=== PATIENT | male | born 1970 | race Caucasian/White ===

== ENCOUNTER 2020-03-07 09:31 | Inpatient (IN) | payer SELFPAY ==
[2020-03-07] VITALS (14 sets, daily range): BP systolic 123–170; BP diastolic 61–95; PULSE 53–89; RESP 16–19; TEMP 35.9–36.8; O2SAT 94–99; BMI 32.5
--- NOTE | 2020-03-07 09:56 | ECG_ITS ---
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 Measurements Intervals [place] Rate: 68 P: 63 [place]: 136 QRS: 89 QRSD: 95 T: 72 QT: 373 QTc: 399 Interpretive Statements SINUS RHYTHM WITH SINUS ARRHYTHMIA NONSPECIFIC ST & T-WAVE ABNORMALITY No previous ECG available for comparison Electronically Signed On 03-07-2020 18:22:21 MEDICAL RECEPTION SPECIALIST by Samina Mercado M.D. [id number] f
--- NOTE | 2020-03-07 09:56 | XR_ITS ---
WS: [id number] Portable AP upright chest, 03/07/2020 Clinical Data: cp Comparison: Portable chest, 04/23/2018. Findings: No nodules, masses or effusions are seen. The heart is normal. The pulmonary vascularity is not increased. No pneumonia or pneumothorax is seen. There is a slight dextroscoliosis of the thorac ic spine. Monitor leads on the chest wall XR/XR chest 1V portable [id number] Impression: Negative chest.
--- NOTE | 2020-03-07 10:01 | ED_ITS ---
HPI - Chest Pain General: Chief Complaint: Chest Pain Stated Complaint: cp/diff breathing Time Seen by Provider: 03/07/20 09:34 Source: patient Mode of arrival: ambulatory Limitations: no limitations History of Present Illness: HPI narrative: 49-year-old male states he has a history of COPD and is a longtime smoker. States he supposed to use nebulizers but he has not been. States he has had some dyspnea and wheezing over last 2 to 3 days with a cough. He states he has had sharp chest pains that started this morning at 7 AM. States pain seems worse with his cough. He denies any fevers. Denies any vomiting or diarrhea. Associated symptoms: Reports dyspnea; Deny abdominal pain, fever(s), nausea or vomiting Review of Systems Const: Denies: fever(s), chills, body aches or change in appetite Eyes: Denies: blurry vision or eye discomfort ENMT: Denies: throat pain or dental pain Card: Reports: chest pain Resp: Reports: dyspnea GI: Denies: abdominal pain, nausea, vomiting or diarrhea : Denies: dysuria Musc: Denies: neck pain or back pain Skin/Breast: Denies: rash Neuro: Denies: headache(s) Psych: Denies: depression [place]/Lymph: Denies: easy bruising All/Imm: Denies: urticaria Physical Exam Const: COMMON NORMALS: no acute distress, patient oriented x3 and healthy appearing HENMT: COMMON NORMALS: normocephalic and atraumatic HEAD & SCALP: normocephalic and atraumatic Eye: COMMON NORMALS: Equal, round and reactive pupils present and EOMs intact bilaterally PUPIL: Yes Equal, round and reactive pupils present Neck/C-Spine: COMMON NORMALS: full ROM and supple Chest: COMMONS NORMALS: normal inspection of the chest and normal palpation of entire chest wall Resp: COMMON NORMALS: normal respiratory effort, No retractions and No use of accessory muscles AUSCULTATION: wheezes Cardio: COMMON NORMALS: regular rate, regular rhythm and No murmurs present (Cardio) RATE: regular rate RHYTHM: regular rhythm GI: COMMON NORMALS: Normal to inspection, nondistended, normoactive bowel sounds present, Soft to palpation, non-tender and no masses PALPATION: Yes Soft to palpation Extremity: COMMON NORMALS: normal to inspection and full ROM Neuro: COMMON NORMALS: patient oriented x3, moves all extremities and no focal motor deficits Psych: COMMON NORMALS: mental status grossly normal, Normal thought process present and cooperative THOUGHT PROCESS: Normal thought process present Skin: COMMON NORMALS: no rashes or lesions noted and no wounds GENERAL SKIN EXAM: no rashes or lesions noted Course Vital Signs: Vital signs: Vital Signs Temperature 97.7 F 03/07/20 09:47 Pulse Rate 68 03/07/20 09:55 Respiratory Rate 16 03/07/20 09:55 Blood Pressure 160/92 03/07/20 09:55 Pulse Oximetry 99 03/07/20 09:55 MDM - Chest Pain MDM Narrative: Medical decision making narrative: Doing presents with chest pain with a possible NSTEMI. Patient's troponin had a delta of 19. He is chest pain-free here and EKGs are normal. We will start him on Lovenox. I spoke to the hospitalist and will admit to the cardiac stepdown. Lab Data: Labs: Lab Results 03/07/20 03/07/20 03/07/20 Range/Units 09:57 09:57 09:57 WBC 8.0 (4.0-10.0) 10^3/ uL RBC 4.98 (4.1-5.3) 10^6/u L Hgb 16.0 (11.7-16.6) g/dL Hct 47.1 (42.0-52.0) % MCV 94.6 H (80-94) fL MCH 32.1 (28.0-34.0) pg MCHC 34.0 (30.0-36.0) g/dL RDW 12.6 (12.1-15.1) % Plt Count 245 (130-400) 10^3/c mm MPV 11.1 H (7.4-10.4) fL Neut % (Auto) 56.9 % Lymph % (Auto) 28.6 % [place] % (Auto) 10.1 % Eos % (Auto) 2.4 % Baso % (Auto) 1.6 % Neut # (Auto) 4.53 (1.8-7.7) 10^3/u L Lymph # (Auto) 2.3 (0.8-4.8) 10^3/u L [place] # (Auto) 0.8 (0.2-0.9) 10^3/u L Eos # (Auto) 0.2 (0.0-0.8) 10^3/u L Baso # (Auto) 0.1 (0.0-0.1) 10^3/u L Nucleated RBC % (a uto) 0 % Nucleated RBCs # 0.0 /100WBC Sodium 142 (136-145) mmol/L Potassium 4.3 (3.5-5.1) mmol/L Chloride 104 (98-107) mmol/L Carbon Dioxide 27 (22-29) mmol/L Anion Gap 15.3 (5-19) BUN 13 (6-20) mg/dL Creatinine 1.1 (0.7-1.2) mg/dL GFR Calculation 70.9 L (90-130) mL/min Glucose 99 (65-115) mg/dL Calculated Osmolal ity 294 (285-295) mOsm/k g Calcium 9.7 (8.5-10.5) mg/dL Total Bilirubin 0.3 (0.15-1.2) mg/dL AST 17 (0-40) U/L ALT 29 (0-41) U/L Alkaline Phosphata se 95 (40-130) IU/L Troponin T Baselin e 18 H (0-15) ng/L Troponin T 120 Min [place] (0-15) ng/L Delta Troponin T (0-10) ABS# NT-Pro-B Natriuret Pep 47 (0-125) pg/mL Total Protein 6.9 (6.6-8.7) g/dL Albumin 4.7 (3.5-5.2) g/dL Globulin 2.2 (1.3-4.6) g/dL 03/07/20 Range/Units 12:08 WBC (4.0-10.0) 10^3/ uL RBC (4.1-5.3) 10^6/u L Hgb (11.7-16.6) g/dL Hct (42.0-52.0) % MCV (80-94) fL MCH (28.0-34.0) pg MCHC (30.0-36.0) g/dL RDW (12.1-15.1) % Plt Count (130-400) 10^3/c mm MPV (7.4-10.4) fL Neut % (Auto) % Lymph % (Auto) % [place] % (Auto) % Eos % (Auto) % Baso % (Auto) % Neut # (Auto) (1.8-7.7) 10^3/u L Lymph # (Auto) (0.8-4.8) 10^3/u L [place] # (Auto) (0.2-0.9) 10^3/u L Eos # (Auto) (0.0-0.8) 10^3/u L Baso # (Auto) (0.0-0.1) 10^3/u L Nucleated RBC % (a uto) % Nucleated RBCs # /100WBC Sodium (136-145) mmol/L Potassium (3.5-5.1) mmol/L Chloride (98-107) mmol/L Carbon Dioxide (22-29) mmol/L Anion Gap (5-19) BUN (6-20) mg/dL Creatinine (0.7-1.2) mg/dL GFR Calculation (90-130) mL/min Glucose (65-115) mg/dL Calculated Osmolal ity (285-295) mOsm/k g Calcium (8.5-10.5) mg/dL Total Bilirubin (0.15-1.2) mg/dL AST (0-40) U/L ALT (0-41) U/L Alkaline Phosphata se (40-130) IU/L Troponin T Baselin e (0-15) ng/L Troponin T 120 Min [place] 37.93 H (0-15) ng/L Delta Troponin T 19.93 H* (0-10) ABS# NT-Pro-B Natriuret Pep (0-125) pg/mL Total Protein (6.6-8.7) g/dL Albumin (3.5-5.2) g/dL Globulin (1.3-4.6) g/dL Imaging Data^: CXR: Radiologist's impression: [address] [address] XRay Report Signed Patient: Twin To Unit #: [id number] : 1970 Age/Sex: 49 / M ADM Date: 03/07/20 Loc: ER Room/Bed: Attending Dr: Ordering Provider/Ordering MD: Marianela Taylor MD Date of Service: 03/07/20 Procedure(s): XR chest 1V portable [id number] Accession Number(s): [id number] Report Number: [id number] WS: [id number] Portable AP upright chest, 03/07/2020 Clinical Data: cp Comparison: Portable chest, 04/23/2018. Findings: No nodules, masses or effusions are seen. The heart is normal. The pulmonary vascularity is not increased. No pneumonia or pneumothorax is seen. There is a slight dextroscoliosis of the thoracic spine. Monitor leads on the chest wall XR/XR chest 1V portable [id number] Impression: Negative chest. EKG Data^: EKG 1: Attestation: I personally reviewed and interpreted this EKG as follows: EKG interpretation date: 03/07/20 EKG interpretation time: 09:51 Interpretation: nsr hr [address] or t wave abnormalities qrs 95 qtc 391 EKG 2: Attestation: I personally reviewed and interpreted this EKG as follows: EKG interpretation date: 03/07/20 EKG interpretation time: 12:18 Interpretation: sinus donny hr [address] or t wave abnormalities qrs 95 qtc 415 Discharge Plan Discharge Patient Disposition: Admitted As Inpatient Clinical Impression: Non-ST elevation VT (NSTEMI) Condition: Stable Coding Level of Care Code ED Underlay Stitcher for Chg Fwd Exam Comprehensive
[2020-03-07] MEDS: aspirin 81 mg Chew Tablet 324 MG PO (10:07)
[2020-03-07 10:26] LABS: Basophils # 0.1 10^3/uL (0.0-0.1); Basophils % 1.6 %; Eosinophils # 0.2 10^3/uL (0.0-0.8); Eosinophils % 2.4 %; Hematocrit 47.1 % (42.0-52.0); Lymphocytes # 2.3 10^3/uL (0.8-4.8); Lymphocytes % 28.6 %; Mean Corpuscular Hemoglobin 32.1 pg (28.0-34.0); Mean Corpuscular Volume 94.6 fL (80-94); Mean Platelet Volume 11.1 fL (7.4-10.4); Monocytes # 0.8 10^3/uL (0.2-0.9); Monocytes % 10.1 %; Neutrophils # 4.53 10^3/uL (1.8-7.7); Neutrophils % 56.9 %; Nucleated Red Blood Cells % 0 %; Platelet Count 245 10^3/cmm (130-400); Red Blood Count 4.98 10^6/uL (4.1-5.3); Red Cell Distribution Width 12.6 % (12.1-15.1)
[2020-03-07 10:41] LABS: Troponin(5th) Baseline 18 ng/L (0-15)
[2020-03-07 10:50] LABS: Alanine Aminotransferase 29 U/L (0-41); Albumin Level 4.7 g/dL (3.5-5.2); Alkaline Phosphatase 95 IU/L (40-130); Anion Gap 15.3 (5-19); Aspartate Amino Transferase 17 U/L (0-40); Blood Urea Nitrogen 13 mg/dL (6-20); Calcium 9.7 mg/dL (8.5-10.5); Carbon Dioxide 27 mmol/L (22-29); Chloride 104 mmol/L (98-107); Globulin 2.2 g/dL (1.3-4.6); Glomerular Filtration Rate 70.9 mL/min (90-130); Glucose 99 mg/dL (65-115); NT Pro B Type Natriuretic Pept 47 pg/mL (0-125); Osmolality Calculated 294 mOsm/kg (285-295); Potassium 4.3 mmol/L (3.5-5.1); Sodium 142 mmol/L (136-145); Total Bilirubin 0.3 mg/dL (0.15-1.2); Total Protein 6.9 g/dL (6.6-8.7)
--- NOTE | 2020-03-07 11:56 | ECG_ITS ---
[facility] Test Date: 2020-03-07 Pat Name: Twin To Department: Room: 104 Gender: Male Principal Systems Architect: : 1970 Requested By: Marianela Taylor Order Number: [id number] Reshma MD: Samina Mercado M.D. Measurements Intervals [place] Rate: 51 P: 56 [place]: 144 QRS: 83 QRSD: 95 T: 69 QT: 437 QTc: 406 Interpretive Statements SINUS BRADYCARDIA Compared to ECG 03/07/2020 09:51:11 Sinus rhythm no longer present Sinus arrhythmia no longer present T-wave abnormality no longer present Electronically Signed On 03-07-2020 18:39:46 INTERIOR SPECIALIST by Samina Mercado M.D. [id number] f
[2020-03-07 12:32] LABS: Troponin 5 2HR 37.93 ng/L (0-15)
[2020-03-07 12:44] LABS: Troponin 5 2HR Delta 19.93 ABS# (0-10)
[2020-03-07] MEDS: enoxaparin 100 mg/mL Syringe SUBCUT (13:00)
--- NOTE | 2020-03-07 13:27 | PC.RESP ---
Dr. Taylor stated that he did not want treatment given.
--- NOTE | 2020-03-07 13:41 | CT_ITS ---
WS: [id number] CTA OF THE CHEST WITH PULMONARY EMBOLISM PROTOCOL TECHNIQUE: High-resolution contrast enhanced CTA of the chest with coronal and sagittal reformatted i mages with pulmonary embolism protocol. MIP images are also reviewed. CLINICAL INFORMATION: chest pain, dyspnea COMPARISON: None. DLP: 642.[address] scans at [facility] use at least one of these dose optimization techniques: automat ed exposure control; mA and/or kV adjustment per patient size (includes targeted exams where dose is matched to clinical indication); or iterative reconstruction. FINDINGS: Proximal main pulmonary arteries are normal. Segmental and subsegmental pulmonary arteries are normal . No evidence of pulmonary embolus. Normal caliber thoracic aorta. Lungs are well aerated. No acute pulmonary infiltrates. No focal pneumonia or pleural fluid. No mediastinal or hilar lymphadenopathy. No axillary lymphadenopathy. Left adrenal nodule likely adenoma measuring 2.[address]/CT angio chest PE protcl [id number] IMPRESSION: 1. No evidence of pulmonary embolus. 2. No acute pulmonary infiltrates. No focal pneumonia or pleural fluid. 3. No mediastinal or hilar lymphadenopathy.
--- NOTE | 2020-03-07 13:41 | PC.NURSE ---
called report to alexsandra castellanos
--- NOTE | 2020-03-07 13:57 | P.HP_ITS ---
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 He reports that he has had some on and off chest pain episodes, sometimes after profound bouts of cough due to his COPD, but other times episodes may be related to getting out from his truck and walking. He reports that he has somewhat chronic cough, recently may have been coughing a bit more, but denies producing more sputum, or any discoloration to sputum. Denies any fever chills, sore throat runny nose, sneezing, headache or muscle aches. He does feel that sometimes the pain may be worsened by movement, lifting his arms, and cough. This is not consistent, however. He denies any history of prior SC, however, says that he may have had a mini stroke several years ago. 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 He denies any hemoptysis. He does state that occasionally he will wake up at night short of breath, says that sometimes he can catch a deep breath, but has difficulty exhaling. He also states his noticed that he sometimes will stop breathing while sleeping for short time. He reports that his also noticed that his right leg was slightly more swollen recently. In ER he is noted to have intermittently elevated blood pressures, as high as 170 systolic, although does not have formal history of hypertension. He states that his blood pressure while in ER has been variable between normal and elevated. He is currently feeling somewhat better, denies pain at the moment, does have some tightness with deep inspiration. In ER he is noted to have for troponin minimally elevated at 18, with positive delta troponin elevation up to 37.9 with delta of 19.9. EKG shows nonspecific ST and T wave abnormality. In ER he received 325 mg of aspirin, as well as a dose of Lovenox in addition to albuterol inhaler. Review of Systems Const: Denies: fever(s), chills, body aches or malaise Eyes: Denies: change in vision or eye redness ENMT: Denies: throat pain, oral sores or ear or mastoid pain Card: Denies: chest pain, edema, pre-syncope or dyspnea on exertion Resp: Denies: dyspnea, productive cough, change in phlegm color or hemoptysis GI: Denies: abdominal pain, nausea, vomiting, diarrhea, constipation, hematochezia or melena : Denies: flank pain, difficulty urinating, urinary frequency or hematuria Musc: Denies: back pain, joint swelling or joint redness Skin/Breast: Denies: rash, sores or new lesions Neuro: Denies: headache(s), numbness in extremities, weakness in extremities, dizziness, confusion or seizure-like activity Endo: Denies: polyuria or polydipsia [place]/Lymph: Denies: easy bleeding or purpura All/Imm: Denies: urticaria, throat swelling or tongue swelling Medications/Allergies Home Medications Medication Instructions Recorded Confirmed Last Taken Type xexeqpy-zftjeapkmumkg-fjwmvgru 2 tab PO PRN 03/07/20 03/07/20 03/05/20 History [Excedrin Migraine] Allergies Allergy/AdvReac Type Severity Reaction Status Date / Time meperidine [From Demerol] Allergy ALGY-Rash Verified 03/07/20 10:21 PFSH Acute PFSH: Medical History COPD (chronic obstructive pulmonary disease) Current smoker Surgical History (Updated 03/07/20 @ 14:05 by Titus Flores MD) Amputation finger traumatic, with surgical reattachment of both index fingers History of ankle surgery Previous back surgery Coccyx Family History Father CAD (coronary artery disease) of massive SC in his 40s Mother Cancer Lung cancer Social History Smoking and tobacco status: heavy tobacco smoker cigarettes Packs smoked per day: 1 [ Other cigarette details: Previously up to 4ppd, then 2, now down to 1 ] Alcohol intake: never Substance/Drug Use: never Lives independently: Yes Household members: spouse Marital status: Current occupational status: employed Vitals/I&O/Wt Last Vital Signs Temp 97.7 F 03/07/20 09:47 Pulse 58 L 03/07/20 13:35 Resp 18 03/07/20 13:35 BP 170/89 03/07/20 13:35 Pulse Ox 99 03/07/20 13:35 Weight last 48 hrs Weight 108.862 kg Physical Exam Const: COMMON NORMALS: no acute distress, patient oriented x3 and alert GENERAL APPEARANCE: cooperative and disheveled NUTRITIONAL APPEARANCE: overweight ORIENTATION/CONSCIOUSNESS: Yes awake HENMT: COMMON NORMALS: oropharynx normal Neck/C-Spine: COMMON NORMALS: no JVD Resp: COMMON NORMALS: normal respiratory effort AUSCULTATION: diminished lung sounds OTHER: intermittent cough Cardio: COMMON NORMALS: no JVD, regular rhythm, S1 normal heart sound present, S2 normal heart sound present and No murmurs present (Cardio) RHYTHM: regular rhythm HEART SOUNDS: S1 normal heart sound present and S2 normal heart sound present GI: COMMON NORMALS: Normal to inspection, nondistended, normoactive bowel sounds present, Soft to palpation and non-tender PALPATION: Yes Soft to palpation Extremity: COMMON NORMALS: no pedal edema OTHER: Minimal edema R ankle Neuro: COMMON NORMALS: patient oriented x3 and moves all extremities Skin: COMMON NORMALS: no rashes or lesions noted GENERAL SKIN EXAM: no rashes or lesions noted Data : 03/07/20 09:57 03/07/20 09:57 A&P Assessment and plan (1) Non-ST elevation SC (NSTEMI): Chest pain episode today, previously intermittent/recurrent chest pain episodes. Positive troponin delta. Pending 6-hour value. With risk factors, positive troponin, nonspecific EKG, symptoms, he has possible non-STEMI. Received aspirin, Lovenox. Hold beta-jacqueline due to bradycardia. Start statin. Follow-up complete troponin EKG series. Assess TTE. With intermittent chest pain, dyspnea, cough, mild but asymmetrical lower extremity swelling, risk factors, will assess with CTA chest for possible PE. Status: Acute (2) COPD (chronic obstructive pulmonary disease): Minimal if any exacerbation. He does have cough, perhaps slightly more than usual, but this is nonproductive, and if producing phlegm it is not discolored. For now we will treat with nebulizer. Respiratory to assess. He is not hypoxic at this time. States at home has a nebulizer. Says that he has tried some inhalers in the past which did not work for him. I am not sure that he actually uses his nebulizer with any regularity. If you be willing discussed with him we could try starting inhaler regimen, with consideration of referral to pulmonology in case he still gets no relief. Smoking cessation is of utmost importance as discussed with him. Status: Acute (3) Current smoker: Discussed smoking cessation for 5 minutes, he has known COPD, recently with worsening respiratory symptoms. He understands that he needs to quit, and says has been cutting down from as much as 4 packs/day, down to 2, and currently down to about 1 pack. Encouraged him to quit entirely due to other risks inclu ding cardiovascular disease, various cancers, etc. We will provide nicotine replacement as needed. Status: Acute (4) Sleep apnea: Reports intermittent symptoms of sleep apnea. Would benefit from sleep study. Status: Acute (5) Right leg swelling: Minimal right leg swelling. 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 Assess CTA for possible PE with symptoms of chest pain, dyspnea. Status: Acute (6) HTN (hypertension): Somewhat variable blood pressure, elevated as high as 170 systolic. He is not aware of history of hypertension in the past. For now start on HCTZ. Monitor blood pressures. Cardiac diet. Status: Acute Attestations Medical Necessity Statement*: Admission of over 2 midnights is contaminated versus management of non-STEMI. Coding Level of Care Code Acute Architecture Consultant for [facility] Fwd Exam Comprehensive Diagnoses Non-ST elevation SC (NSTEMI) I21.4 COPD (chronic obstructive pulmonary disease) J44.9 Current smoker F17.200 Sleep apnea G47.30 Right leg swelling M79.89 HTN (hypertension) I10
--- NOTE | 2020-03-07 13:57 | USCV_ITS ---
ZuleikaLuisTwin Age: 49 Gender: M : 1970 Exam Date: 03/07/2020 14:23 Ordering Phys: Titus Flores MD Technologist: Sahara Lobo Exam Location: [facility] [place] Indication: NSTEMI BP: 170 / 95 HR: 53 Rhythm: Sinus Technical Quality: Adequate MEASUREMENTS (Male / Female) Normal Values 2D ECHO LV Diastolic Diameter PLAX 4.2 cm 4.2 - 5.9 / 3.9 - 5.3 cm LV Systolic Diameter PLAX 2.5 cm LV Chamber Size 3.7 cm IVS Diastolic Thickness 1.2 cm 0.6 - 1.0 / 0.6 - 0.9 cm IVS Systolic Thickness 1.6 cm LVPW Diastolic Thickness 2.0 cm 0.6 - 1.0 / 0.6 - 0.9 cm LVPW Systolic Thickness 2.7 cm RV Chamber Size 3.2 cm LVOT Diameter 2.0 cm LV Ejection Fraction 2D Teich 72.4 % LV Ejection Fraction MOD 2C 50.3 % LV Ejection Fraction 2C AL 54.9 % LA Diameter 3.8 cm LA Width 2.7 cm LA Height 4.1 cm RA Width 3.1 cm RA Height 3.9 cm Aorta at Sinotubular Diameter 2.1 cm M-MODE LV Diastolic Diameter MM 6.4 cm 4.2 - 5.9 / 3.9 - 5.3 cm LV Systolic Diameter MM 4.2 cm LV Ejection Fraction MM Teich 61.8 % IVS Diastolic Thickness MM 1.2 cm 0.6 - 1.0 / 0.6 - 0.9 cm IVS Systolic Thickness MM 1.3 cm LVPW Diastolic Thickness MM 1.0 cm 0.6 - 1.0 / 0.6 - 0.9 cm LVPW Systolic Thickness MM 2.0 cm Aortic Annulus Diameter 3.3 cm LA Ao Ratio MM 1.4 MV E Point Septal Separation 1.3 cm DOPPLER AV Peak Velocity 177.0 cm/s LVOT Peak Velocity 108.0 cm/s AV Area Cont Eq vti 1.9 cm squared AV Area Cont Eq pk 2.0 cm squared MV Area PHT 3.4 cm squared Mitral E to A Ratio 1.8 MV E' Velocity 52.5 cm/s Mitral E to MV E' Ratio 6.8 Mitral E to LV E' Lateral Ratio 6.4 Mitral E to LV E' Septal Ratio 7.5 TR Peak Velocity 146.5 cm/s TR Peak Gradient 8.6 mmHg TV Peak E Velocity 69.0 cm/s Right Atrial Pressure 3.0 mmHg Pulmonary Artery Systolic Pressu 11.6 mmHg PV Peak Velocity 84.0 cm/s RV Acceleration Time 0.2 s RV Ejection Time 0.4 s RV AcT/ET 0.6 FINDINGS Left Ventricle Normal left ventricular size and systolic function, with no regional wall motion abnormalities. LVEF is 50 to 55%. Normal diastolic function is noted. Right Ventricle The right ventricle is normal in size and function. Right Atrium The right atrium is normal in size. Left Atrium The left atrium is normal in size. Mitral Valve Structurally normal mitral valve without significant stenosis or prolapse. There is no mitral regurgitation. Aortic Valve Structurally normal aortic valve without significant sclerosis or stenosis. There is no aortic regurgitation. Tricuspid Valve Structurally normal tricuspid valve without significant stenosis or regurgitation. Insufficient TR jet to calculate RVSP. Pulmonic Valve Structurally normal pulmonic valve without significant stenosis. There is no pulmonic regurgitation. Pericardium Normal pericardium without effusion. Aorta Normal ascending aorta dimension. CONCLUSIONS LV systolic function is normal with EF of 50 to 55%. No regional wall motion abnormalities are noted. Normal diastolic function. No significant valvular heart disease is present. No comparison studies are available. Mayur Martin MD (Electronically Signed) Final Date: 07 March 2020 19:10 S
--- NOTE | 2020-03-07 13:57 | USCV_ITS ---
Zuleika Twin Age: 49 Gender: M : 1970 Exam Date: 03/07/2020 14:35 Ordering Phys: Titus Flores MD Technologist: Sahara Lobo [place] [facility] [place]: VTE HISTORY: DVT. PROCEDURES: Venous duplex imaging was performed in bilateral lower extremities. The following venous structures were evaluated: common femoral vein, profunda vein, proximal portion of the greater saphenous vein, superficial femoral vein, and the popliteal vein. In addition, the posterior tibial and peroneal trunk were evaluated. Serial compression, augmentation maneuvers, and spectral Doppler flow evaluation were performed. FINDINGS: Normal 2-D Doppler and augmentation and compressibility throughout the lower extremity venous structures. Additional imaging through the proximal calf veins also reveals no thrombus. Limited evaluation of the greater saphenous vein is patent with no thrombus.. CONCLUSIONS No evidence of right lower extremity DVT. No evidence of left lower extremity DVT. Yariel Van MD (Electronically Signed) Final Date: 08 March 2020 12:35 S
[2020-03-07] MEDS: pantoprazole DR 40 mg Tablet PO (14:55)
[2020-03-07] MEDS: hyDRALAzine 20 mg/mL INJ 1 mL 10 MG IVP (14:55)
[2020-03-07] MEDS: hydroCHLOROthiazide 25 mg Tablet PO (14:56)
[2020-03-07] MEDS: ipratropium-albuterol 3 mL Neb INHALATION (15:10)
[2020-03-07 15:22] LABS: Estmated Average Glucose 105; Hemoglobin A1C 5.3 % (4.0-6.0)
--- NOTE | 2020-03-07 15:56 | ECG_ITS ---
[facility] Test Date: 2020-03-07 Pat Name: Twin To Department: Room: 104 Gender: Male Clinical Staff Anesthesiologist: : 1970 Requested By: Marianela Taylor Order Number: [id number] Reshma MD: Samina Mercado M.D. Measurements Intervals [place] Rate: 62 P: 58 VA: 135 QRS: 84 QRSD: 109 T: 70 QT: 430 QTc: 439 Interpretive Statements SINUS RHYTHM NONSPECIFIC ST & T-WAVE ABNORMALITY Compared to ECG 03/07/2020 09:51:11 Sinus arrhythmia no longer present T-wave abnormality still present Electronically Signed On 03-07-2020 18:36:09 TAX REVENUE OFFICER by Samina Mercado M.D. [id number]
[2020-03-07] MEDS: iohexol 350 mg/mL 100 mL Btl IV (16:03)
[2020-03-07 16:16] LABS: Troponin 5 6HR 27.56 ng/L (0-15); Troponin 5 6HR Delta 9.56 ng/L (0-12)
[2020-03-07] MEDS: atorvastatin 40 mg Tablet PO (19:21)
[2020-03-08] VITALS (14 sets, daily range): BP systolic 117–191; BP diastolic 61–88; PULSE 49–85; RESP 10–22; TEMP 36.4–36.8; O2SAT 61–97
[2020-03-08] MEDS: enoxaparin 100 mg/mL Syringe SUBCUT ×2 (00:23→12:22)
--- NOTE | 2020-03-08 01:10 | PC.NURSE ---
Patient does not complain of any pain at this time. Will monitor.
[2020-03-08 05:06] LABS: Basophils # 0.1 10^3/uL (0.0-0.1); Basophils % 1.2 %; Eosinophils # 0.3 10^3/uL (0.0-0.8); Eosinophils % 3.4 %; Hematocrit 47.9 % (42.0-52.0); Hemoglobin 16.2 g/dL (11.7-16.6); Lymphocytes # 2.6 10^3/uL (0.8-4.8); Lymphocytes % 30.6 %; Mean Corpuscular HGB Conc 33.8 g/dL (30.0-36.0); Mean Corpuscular Hemoglobin 31.6 pg (28.0-34.0); Mean Corpuscular Volume 93.6 fL (80-94); Mean Platelet Volume 11.1 fL (7.4-10.4); Monocytes # 0.8 10^3/uL (0.2-0.9); Monocytes % 8.8 %; Neutrophils # 4.82 10^3/uL (1.8-7.7); Neutrophils % 55.7 %; Nucleated Red Blood Cells % 0 %; Platelet Count 241 10^3/cmm (130-400); Red Blood Count 5.12 10^6/uL (4.1-5.3); Red Cell Distribution Width 12.6 % (12.1-15.1); White Blood Count 8.6 10^3/uL (4.0-10.0)
[2020-03-08 06:05] LABS: Anion Gap 17.8 (5-19); Blood Urea Nitrogen 14 mg/dL (6-20); Calcium 9.6 mg/dL (8.5-10.5); Carbon Dioxide 25 mmol/L (22-29); Chloride 101 mmol/L (98-107); Glomerular Filtration Rate 79.1 mL/min (90-130); Glucose 105 mg/dL (65-115); Osmolality Calculated 291 mOsm/kg (285-295); Potassium 3.8 mmol/L (3.5-5.1); Sodium 140 mmol/L (136-145)
--- NOTE | 2020-03-08 07:23 | SUR.PREOP ---
POSITIVE TROPONINS Clarified with RN, Ellyn Palacios of positive 2 hour delta troponin. She states that Sandra is aware of the troponin delt positive and the 6 hr delta being negative at trending down at 9.56. States that he still wants to resume stress this morning. Noted.
--- NOTE | 2020-03-08 07:48 | SUR.PREOP ---
Patient reports no pain or discomfort prior to the start of the procedure.
[2020-03-08] MEDS: regadenoson 0.4 Mg/5 ml Syringe IVP (07:49)
--- NOTE | 2020-03-08 09:00 | ECG_ITS ---
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 Interpretive Statements NAME OF STUDY: LEXISCAN SESTAMIBI STRESS TEST INDICATION: [Chest Pain] Procedure: The baseline blood pressure was 137/77 mmHg with a heart rate of 50 bpm. The electrocardiogram showed normal sinus rhythm with normal ST and T's. The Lexiscan was infused for a duration of 20 seconds. A total of 0.4 mg of Lexiscan was infused. The stress phase was continued for a total of 5 minutes. Heart rate at end of stress phase was 87 bpm, with a blood pressure 123/87 mmHg. The EKG at the peak infusion revealed sinus rhythm with ST depressions in lateral leads. Sestamibi was injected 20 seconds after Lexiscan infusion. Blood pressure at the end of recovery phase was 191/80 mmHg with a heart rate of 78 bpm. No significant changes during recovery phase. Conclusion: 1. ST depressions noted in lateral leads on stress. This could represent ischemia. Will await for nuclear imaging results. 2. No Lexiscan induced chest pain or cardiac arrhythmia. 3. Hypertensive blood pressure response and normal heart rate response. 4. Sestamibi/sestamibi perfusion scan pending; see separate report. Electronically Signed On 03-08-2020 18:47:28 ROCKBOARD LATHER by Mayur Martin M.D. [id number]
[2020-03-08] MEDS: aspirin 81 mg EC Tablet PO (09:19)
[2020-03-08] MEDS: hydroCHLOROthiazide 25 mg Tablet PO (09:19)
[2020-03-08] MEDS: pantoprazole DR 40 mg Tablet PO (09:19)
[2020-03-08] MEDS: acetaminophen 325 mg Tablet 650 MG PO (09:21)
--- NOTE | 2020-03-08 11:35 | PM.PN ---
Subjective Subjective: Interval history: He is doing better today. No chest pain. Had short lasting pain after an episode of cough overnight, but nothing persistent. Breathing is little bit better with breathing treatments. Vitals/I&O/Wt Last Vital Signs Temp 97.6 F 03/08/20 11:20 Pulse 68 03/08/20 11:20 Resp 15 03/08/20 11:20 BP 130/87 03/08/20 11:20 Pulse Ox 96 03/08/20 11:20 03/07/20 03/08/20 03/08/20 22:59 06:59 14:59 Intake Total 680 / 680 960 / 960 Output Total 1575 / 1575 1100 / 2675 200 / 200 Balance - / - -1099 / 760 / 760 Weight last 48 hrs Weight 108.862 kg Physical Exam Const: COMMON NORMALS: no acute distress, patient oriented x3 and alert GENERAL APPEARANCE: cooperative and disheveled NUTRITIONAL APPEARANCE: overweight ORIENTATION/CONSCIOUSNESS: Yes awake HENMT: COMMON NORMALS: oropharynx normal Neck/C-Spine: COMMON NORMALS: no JVD Resp: COMMON NORMALS: normal respiratory effort AUSCULTATION: no rales, no rhonchi, no wheezes and diminished lung sounds Cardio: COMMON NORMALS: no JVD, regular rhythm, S1 normal heart sound present, S2 normal heart sound present and No murmurs present (Cardio) RHYTHM: regular rhythm HEART SOUNDS: S1 normal heart sound present and S2 normal heart sound present GI: COMMON NORMALS: Normal to inspection, nondistended, normoactive bowel sounds present, Soft to palpation and non-tender PALPATION: Yes Soft to palpation Extremity: COMMON NORMALS: no pedal edema OTHER: Minimal edema R ankle Neuro: COMMON NORMALS: patient oriented x3 and moves all extremities SENSORIUM/ORIENTATION: Yes alert Skin: COMMON NORMALS: no rashes or lesions noted GENERAL SKIN EXAM: no rashes or lesions noted Data : 03/08/20 04:24 03/08/20 04:24 A&P Assessment and plan (1) Non-ST elevation FL (NSTEMI): Echocardiogram with ejection fraction 50-55%. Abnormal stress test with partially reversible perfusion defect in inferior wall appears to be secondary to prior FL with latisha-infarct ischemia. He is going to be seen by cardiology for additional assessment. Load with Plavix. Continue aspirin, Lovenox. Hold beta-jacqueline due to bradycardia. Start statin. Follow-up complete troponin EKG series. Assess TTE. No PE on CTA. Status: Acute (2) COPD (chronic obstructive pulmonary disease): Continue nebulizer treatments. Will need inhalers on discharge. Discussed with him again to establish with a PCP and follow-up for reassessment and adjustment of therapy. Continue to encourage smoking cessation. Status: Acute (3) Current smoker: Encourage smoking cessation. We will provide nicotine replacement as needed. Status: Acute (4) Sleep apnea: Reports intermittent symptoms of sleep apnea. Would benefit from sleep study. Status: Acute (5) Right leg swelling: Minimal right leg swelling. 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 Unremarkable CTA. Status: Acute (6) HTN (hypertension): Somewhat variable blood pressure, elevated as high as 170 systolic. He is not aware of history of hypertension in the past. BP good w HCTZ. Monitor blood pressures. Cardiac diet. Status: Acute Attestations Medical Necessity Statement*: Continue admission for assessment and management of non-STEMI. 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
[2020-03-08] MEDS: clopidogrel 300 mg Tablet PO (12:21)
[2020-03-08] MEDS: ipratropium-albuterol 3 mL Neb INHALATION ×2 (14:05→20:16)
--- NOTE | 2020-03-08 16:49 | NMCV_ITS ---
NM [place] perf SPECT r/s* [id number] Twin To Age: 49 Gender: M : 1970 Exam Date: 03/08/2020 06:45 Ordering Phys: Titus Flores MD Technologist: CAM Ford Exam Location: [facility] Indications: CHEST PAIN DIFFICULTY BREATHING STRESS TEST [facility] IMAGE PROTOCOL Rest/Stress 1 Lexiscan Day Radiopharmaceutical Dose (mCi) Administration Site Administered by Rest: Tc-99m 10.9 IV CAM Aviles Sestamibi Stress:Tc-99m 32.8 IV CAM Bermudez Sestamibi Rest: 08-Mar-2020 60 Discovery 630 Stress: 08-Mar-2020 30 Discovery 630 0.4mg Lexiscan. Images obtained in supine and prone position. SPECT RESULTS Technical Quality: Excellent Raw Data Analysis: Normal Image Corrections: No attenuation or motion correction applied Summed Stress Score: 3 Summed Rest Score: 4 Summed Difference Score: 2 PERFUSION FINDINGS There is a moderate in size, partially reversible perfusion defect in the inferior wall. This likely represents prior infarct with periinfarct ischemia. There is reduced uptake of radiotracer in the anterior wall both at rest and stress. This is likely attenuation artifact. FUNCTIONAL RESULTS (calculated via Gated SPECT) Stress Image LV EF (%): 43 Stress EDV (mL):194 TID: 0.98 Stress ESV (mL):111 FUNCTIONAL FINDINGS: LV systolic function is mildly reduced with EF of 43% IMPRESSIONS 1. There is a partially reversible inferior wall defect. This likely represents prior infarct with latisha-infarct ischemia. Clinical correlation is needed. 2. There is reduced radiotracer uptake in the anterior wall consistent with attenuation artifact. 3. LV systolic function is mildly reduced Mayur Martin MD (Electronically Signed) Final Date: 08 March 2020 11:03 S
--- NOTE | 2020-03-08 17:48 | P.CONIM_ITS ---
Providers/Reason For Consult Consulting Physican/Specialty*: SEKOU Turner MD/cardiology Reason for Consult*: Patient with chest pain, elevated troponin T and abnormal myocardial perfusion imaging Attending Physician: Titus Flores History of Present Illness History of Present Illness Twin To is a 49 year old male, is admitted to hospital through the emergency room, where he presented with complaints of a prolonged episode of chest pain. Patient was found to have elevated troponin T. He had a myocardial perfusion imaging today which was abnormal. Cardiology consult is requested for further cardiac evaluation recommendations. Patient has no previous history for coronary disease, myocardial infarction or congestive heart failure. He has a strong family history for premature atherosclerotic heart disease. His father, at age of 42 had a massive heart attack and of the same. His elder brother had 2 heart attacks. Details are not available. Patient is a heavy smoker. He used to smoke 4 pack a day for 30 years or so. He started cutting down on this 4 years ago. Currently he smokes 1-1/2 to 2 pack a day. Denies any alcohol abuse or any other substance abuse. According the patient, he has been having episodes of chest pain for the last 3 to 4 years. For the last 3 to 4 months, he been having chest pains at least twice a month. Each of these episodes usually last anywhere from 5 to 10 minutes and then goes away by itself or with rest. Intensity of these pains are moderate. Mostly precipitated with activities. 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 The pain was moderate to severe intensity. He felt like heavy sharp icicles were left on his chest. The pain was mostly on the right side, radiating to both arms. He had associated tingling and numbness of both arms mostly on the inner aspect. The pain started getting worse. Symptoms might have lasted for a total of 2 hours also. He called his at that point. His brought him to the hospital. By the time he came to the emergency room, most of the symptoms were gone. He had associated shortness of breath, nausea and sweating. No palpitations, dizziness or syncopal episodes. No other associated symptoms or radiation of pain. His initial troponin T was around 20 and the 2-hour delta was 19.9. The 6-hour delta have show a downward trend. The EKG showed some nonspecific ST changes. According to the patient, he had stress testing in the past as part of the [employer] physical. Apparently they were okay. Details are not available. He has not been taking the medication. He has not been evaluated by a physician for more than 9 years. Chest pains were very infrequent in the beginning. But lately seems to be more frequent. And yesterday, he had the most severe form of chest pain. Review of Systems Narrative: CONSTITUTIONAL: No fever or chills. EYES: No blurring of vision or other visual disturbances lately. ENT: No hoarseness of voice, auditory disturbances or sore throat. CARDIOVASCULAR: As mentioned above. RESPIRATORY: Patient has COPD and the baseline shortness of breath. GASTROINTESTINAL: No hematemesis or melena. GENITOURINARY: No dysuria or hematuria. INTEGUMENTARY: No skin rashes or history of skin cancer. NEURO: No transient ischemic attacks or amaurosis. PSYCHIATRIC: No history of psychosis or major depression. HEMATOLOGIC: No bleeding disorders or significant anemia. ENDOCRINE: No history of polyuria or polydipsia. MUSCULOSKELETAL: No recent joint pain or swelling. ALLERGY/IMMUNOLOGY: As mentioned above. Meds/Allergies Home Medications and Allergies Home Medications Medication Instructions Recorded Confirmed Last Taken Type tlltwzx-qwnzxssupwizh-mykdpwrj 2 tab PO PRN 03/07/20 03/07/20 03/05/20 History [Excedrin Migraine] Allergies Allergy/AdvReac Type Severity Reaction Status Date / Time meperidine [From Demerol] Allergy ALGY-Rash Verified 03/07/20 10:21 Current Medications Current Medications Generic Name Dose Route Start Last Admin Trade Name Shlomo PRN Reason Stop Dose Admin Acetaminophen 650 mg 03/07/20 14:21 03/08/20 09:21 Acetaminophen 325 Mg Tablet PO 650 mg Q6H PRN Administration Mild/Mod Pain Or Temp >/= 101 Albuterol/Ipratropium 3 ml 03/07/20 15:00 03/08/20 14:05 Ipratropium-Albuterol 3 Ml Neb INHALATION 3 ml Q6H.RESPIRATORY NITISH Administration Aspirin 81 mg 03/08/20 09:00 03/08/20 09:19 Aspirin 81 Mg Ec Tablet PO 81 mg DAILY NITISH Administration Atorvastatin Calcium 40 mg 03/07/20 21:00 03/07/20 19:21 Atorvastatin 40 Mg Tablet PO 40 mg BEDTIME NITISH Administration Enoxaparin Sodium 100 mg 03/08/20 01:00 03/08/20 12:22 Enoxaparin 100 Mg/Ml Syringe SUBCUT 100 mg Q12H NITISH Administration Hydrochlorothiazide 25 mg 03/07/20 13:50 03/08/20 09:19 Hydrochlorothiazide 25 Mg Tablet PO 25 mg DAILY NITISH Administration Pantoprazole Sodium 40 mg 03/07/20 14:25 03/08/20 09:[address] 40 Mg Tablet PO 40 mg DAILY NITISH Administration PFSH Acute PFSH: Medical History Abuse of smoked substance Acute non-ST elevation myocardial infarction (NSTEMI) Bradycardia COPD (chronic obstructive pulmonary disease) Current smoker Dyslipidemia (high LDL; low HDL) Elevated blood pressure reading Surgical History Amputation finger traumatic, with surgical reattachment of both index fingers History of ankle surgery Previous back surgery Coccyx Family History Father CAD (coronary artery disease) of massive NE in his 40s Mother Cancer Lung cancer Social History Smoking and tobacco status: heavy tobacco smoker cigarettes Packs smoked per day: 1 [ Other cigarette details: Previously up to 4ppd, then 2, now down to 1 ] Alcohol intake: never Substance/Drug Use: never Lives independently: Yes Household members: spouse Marital status: Current occupational status: employed Vitals/I&O/Wt Last Vital Signs Temp 97.6 F 03/08/20 15:00 Pulse 66 03/08/20 15:00 Resp 19 H 03/08/20 15:00 BP 139/88 03/08/20 15:00 Pulse Ox 97 03/08/20 15:00 03/08/20 03/08/20 03/08/20 06:59 14:59 22:59 Intake Total 1440 / 1440 480 / 1920 Output Total 1100 / 2675 800 / 800 425 / 1225 Balance -1099 / 640 / 640 55 / 695 Weight last 48 hrs Weight 240 lb Physical Exam Narrative: EXAM NARRATIVE: GENERAL: The patient is alert and oriented times three. Not in any acute distress. Extensive tattoo marking all over the body. Moderately obese. HEENT: No significant pallor, icterus or lymphadenopathy. The pupils are reactant to light. Oral cavity: There are no mucous membrane lesions. Funduscopic examination: The fundus is not visualized NECK: Trachea appears to be central. No masses noted. No JVD or thyromegaly appreciated. No carotid bruit. RESPIRATORY: Chest is symmetrical. No intercostals muscle retraction or any accessory muscle activation. There is no chest wall tenderness. Breath sounds are heard bilaterally. No rales or rhonchi heard. No evidence of any consolidation. BREASTS: Deferred. HEART: The PMI could not be palpated. No other palpable precordial events. S1 and S2 are normal. No S3 or S4 heard. No pericardial rub or any click heard. ABDOMEN: No vessel pulsations or distention. No tenderness. No organomegaly appreciated. No abdominal bruit. Bowel sounds are normally heard. : Deferred. RECTAL: Deferred. LYMPHATIC: No lymphadenopathy noted in the neck or groin. EXTREMITIES: No edema or cyanosis. No clubbing. The pulses are symmetrical bilaterally. The radial, femoral, dorsalis pedis and the posterior tibial pulses are palpated and found to be in good volume and amplitude. MUSCULOSKELETAL: No acute joint deformities or swelling SKIN: There are no significant scars or skin rash noted. Extensive tattoo markings in the upper and lower extremities and all over the body NEUROPSYCHIATRIC: The patient is alert and oriented x3. Appears to be in a good mood. The higher functions are grossly within normal limits. No tremors or rigidity noted. Data Labs: Other Labs: Laboratory Last Values WBC 8.6 10^3/uL (4.0- 10.0) 03/08/20 04:24 RBC 5.12 10^6/uL (4.1 -5.3) 03/08/20 04:24 Hgb 16.2 g/dL (11.7-1 6.6) 03/08/20 04:24 Hct 47.9 % (42.0-52.0 ) 03/08/20 04:24 MCV 93.6 fL (80-94) 03/08/20 04:24 MCH 31.6 pg (28.0-34. 0) 03/08/20 04:24 MCHC 33.8 g/dL (30.0-3 6.0) 03/08/20 04:24 RDW 12.6 % (12.1-15.1 ) 03/08/20 04:24 Plt Count 241 10^3/cmm (130 -400) 03/08/20 04:24 MPV 11.1 fL (7.4-10.4 ) H 03/08/20 04:24 Neut % (Auto) 55.7 % 03/08/20 04:24 Lymph % (Auto) 30.6 % 03/08/20 04:24 [place] % (Auto) 8.8 % 03/08/20 04:24 Eos % (Auto) 3.4 % 03/08/20 04:24 Baso % (Auto) 1.2 % 03/08/20 04:24 Neut # (Auto) 4.82 10^3/uL (1.8 -7.7) 03/08/20 04:24 Lymph # (Auto) 2.6 10^3/uL (0.8- 4.8) 03/08/20 04:24 [place] # (Auto) 0.8 10^3/uL (0.2- 0.9) 03/08/20 04:24 Eos # (Auto) 0.3 10^3/uL (0.0- 0.8) 03/08/20 04:24 Baso # (Auto) 0.1 10^3/uL (0.0- 0.1) 03/08/20 04:24 Nucleated RBC % (a uto) 0 % 03/08/20 04:24 Nucleated RBCs # 0.0 /100WBC 03/08/20 04:24 Sodium 140 mmol/L (136-1 45) 03/08/20 04:24 Potassium 3.8 mmol/L (3.5-5 .1) 03/08/20 04:24 Chloride 101 mmol/L (98-10 7) 03/08/20 04:24 Carbon Dioxide 25 mmol/L (22-29) 03/08/20 04:24 Anion Gap 17.8 (5-19) 03/08/20 04:24 BUN 14 mg/dL (6-20) 03/08/20 04:24 Creatinine 1.0 mg/dL (0.7-1. 2) 03/08/20 04:24 GFR Calculation 79.1 mL/min (90-1 30) L 03/08/20 04:24 Glucose 105 mg/dL (65-115 ) 03/08/20 04:24 Estimat Average Gl ucose 105 03/07/20 09:57 Hemoglobin A1c 5.3 % (4.0-6.0) 03/07/20 09:57 Calculated Osmolal ity 291 mOsm/kg (285- 295) 03/08/20 04:24 Calcium 9.6 mg/dL (8.5-10 .5) 03/08/20 04:24 Total Bilirubin 0.3 mg/dL (0.15-1 .2) 03/07/20 09:57 AST 17 U/L (0-40) 03/07/20 09:57 ALT 29 U/L (0-41) 03/07/20 09:57 Alkaline Phosphata se 95 IU/L (40-130) 03/07/20 09:57 Troponin T Baselin e 18 ng/L (0-15) H 03/07/20 09:57 Troponin T 120 Min [place] 37.93 ng/L (0-15) H 03/07/20 12:08 Delta Troponin T 19.93 ABS# (0-10) H* 03/07/20 12:08 Troponin T Hi Sens 6Hr 27.56 ng/L (0-15) H 03/07/20 15:48 Troponin T Hi Sens 6Hr Delta 9.56 ng/L (0-12) 03/07/20 15:48 NT-Pro-B Natriuret Pep 47 pg/mL (0-125) 03/07/20 09:57 Total Protein 6.9 g/dL (6.6-8.7 ) 03/07/20 09:57 Albumin 4.7 g/dL (3.5-5.2 ) 03/07/20 09:57 Globulin 2.2 g/dL (1.3-4.6 ) 03/07/20 09:57 Myocardial perfusion imaging from today 1. There is a partially reversible inferior wall defect. This likely represents prior infarct with latisha-infarct ischemia. Clinical correlation is needed. 2. There is reduced radiotracer uptake in the anterior wall consistent with attenuation artifact. 3. LV systolic function is mildly reduced Echocardiogram from yesterday LV systolic function is normal with EF of 50 to 55%. No regional wall motion abnormalities are noted. Normal diastolic function. No significant valvular heart disease is present. No comparison studies are available. The EKG revealed normal sinus rhythm with prominent U waves. Nonspecific T wave changes. Some nonspecific ST changes in the lateral leads A&P Assessment and plan (1) Acute non-ST elevation myocardial infarction (NSTEMI): In view of the patient's the clinical presentation, strong family history for premature atherosclerotic heart disease, abnormal myocardial perfusion i maging, and multiple other risk factors, in order to further evaluate this coronary status, patient requires a cardiac catheterization. The risk of bleeding, hematoma, vascular injury, myocardial infarction, CVA, renal failure and other concomitant complications were explained in detail. Patient understood this well and consented to proceed. We may go ahead and schedule for the procedure sometime tomorrow. In the meanwhile, he may be kept on Lovenox, aspirin, Plavix and a statin drug. Status: Acute (2) Elevated blood pressure reading: Patient may be started on ERNESTO inhibitor. I may start him on lisinopril 10 mg p.o. daily. His blood pressure will be closely monitored. Status: Acute (3) Abuse of smoked substance: He is strongly advised to quit smoking. Cardiovascular implications were discussed. Patient seems to understand this well. Status: Acute (4) Dyslipidemia (high LDL; low HDL): Patient may be continue on the atorvastatin. Status: Acute (5) Bradycardia: Because of the bradycardia episode, I may hold off on the beta-jacqueline at this time. His heart rhythm will be closely monitored on telemetry. Status: Acute Additional A&P Information Based on the patient's clinical progress and the results of the above, further recommendations will be made. Thank you for the opportunity to evaluate this patient make these recommendations. 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
[2020-03-08] MEDS: lisinopril 10 mg Tablet PO (20:34)
[2020-03-08] MEDS: atorvastatin 40 mg Tablet PO (20:34)
[2020-03-09] VITALS (31 sets, daily range): BP systolic 91–151; BP diastolic 51–87; PULSE 59–104; RESP 0–25; TEMP 36.6–37.1; O2SAT 91–97
[2020-03-09] MEDS: enoxaparin 100 mg/mL Syringe SUBCUT (00:46)
[2020-03-09] MEDS: ipratropium-albuterol 3 mL Neb INHALATION ×2 (03:20→09:00)
[2020-03-09 04:38] LABS: Basophils # 0.1 10^3/uL (0.0-0.1); Basophils % 1.2 %; Eosinophils # 0.3 10^3/uL (0.0-0.8); Eosinophils % 2.9 %; Hematocrit 49.9 % (42.0-52.0); Hemoglobin 16.6 g/dL (11.7-16.6); Lymphocytes # 2.8 10^3/uL (0.8-4.8); Lymphocytes % 28.4 %; Mean Corpuscular HGB Conc 33.3 g/dL (30.0-36.0); Mean Corpuscular Hemoglobin 31.3 pg (28.0-34.0); Mean Platelet Volume 11.2 fL (7.4-10.4); Monocytes % 9.6 %; Neutrophils # 5.74 10^3/uL (1.8-7.7); Neutrophils % 57.6 %; Nucleated Red Blood Cells % 0 %; Platelet Count 258 10^3/cmm (130-400); Red Blood Count 5.31 10^6/uL (4.1-5.3); Red Cell Distribution Width 12.6 % (12.1-15.1)
[2020-03-09 04:51] LABS: Blood Urea Nitrogen 17 mg/dL (6-20); Calcium 10.3 mg/dL (8.5-10.5); Carbon Dioxide 27 mmol/L (22-29); Chloride 101 mmol/L (98-107); Glomerular Filtration Rate 64.1 mL/min (90-130); Glucose 117 mg/dL (65-115); Osmolality Calculated 289 mOsm/kg (285-295); Sodium 138 mmol/L (136-145)
--- NOTE | 2020-03-09 06:49 | PC.NURSE ---
PT HAD AN UNEVENTFUL NIGHT. DENIES PAIN. PT PREPPED FOR [facility] BY THIS NURSE. CONSENT FORMS WERE SIGNED. PT TRAMAINE ANY QUESTIONS AT THIS TIME.
[2020-03-09] MEDS: pantoprazole DR 40 mg Tablet PO (08:11)
[2020-03-09] MEDS: hydroCHLOROthiazide 25 mg Tablet PO (08:11)
[2020-03-09] MEDS: aspirin 81 mg EC Tablet PO (08:11)
[2020-03-09] MEDS: clopidogrel 75 mg Tablet PO (08:11)
[2020-03-09] MEDS: lisinopril 10 mg Tablet PO (08:11)
--- NOTE | 2020-03-09 10:34 | PM.PN ---
Subjective Subjective: Interval history: The patient is feeling okay with no recurrence of chest pain. No palpitation, dizziness or syncopal episode. No unusual shortness of breath. Telemetry shows normal sinus rhythm. No arrhythmias are noted on the monitor. The blood pressure remains somewhat elevated. Denies any fever or chills. No cough. No other specific complaints. Medications: Reviewed: Yes Medication Review Details: Current Medications Acetaminophen (Acetaminophen 325 Mg Tablet) 650 mg PO Q6H PRN PRN Reason: Mild/Mod Pain Or Temp >/= 101 Last Admin: 03/08/20 09:21 Dose: 650 mg Documented by: Albuterol/Ipratropium (Ipratropium-Albuterol 3 Ml Neb) 3 ml INHALATION Q6H.RESPIRATORY [facility], LAT[facility] Last Admin: 03/09/20 09:00 Dose: 3 ml Documented by: Albuterol/Ipratropium (Ipratropium-Albuterol 3 Ml Neb) 3 ml INHALATION Q6H PRN PRN Reason: SHORTNESS OF BREATH Aspirin (Aspirin 81 Mg Ec Tablet) 81 mg PO DAILY [facility] Last Admin: 03/09/20 08:11 Dose: 81 mg Documented by: Atorvastatin Calcium (Atorvastatin 40 Mg Tablet) 40 mg PO BEDTIME [facility] Last Admin: 03/08/20 20:34 Dose: 40 mg Documented by: Clopidogrel Bisulfate (Clopidogrel 75 Mg Tablet) 75 mg PO DAILY [facility] Last Admin: 03/09/20 08:11 Dose: 75 mg Documented by: Enoxaparin Sodium (Enoxaparin 100 Mg/Ml Syringe) 100 mg SUBCUT Q12H [facility] Last Admin: 03/09/20 00:46 Dose: 100 mg Documented by: Hydrochlorothiazide (Hydrochlorothiazide 25 Mg Tablet) 25 mg PO DAILY [facility] Last Admin: 03/09/20 08:11 Dose: 25 mg Documented by: Lisinopril (Lisinopril 10 Mg Tablet) 10 mg PO DAILY [facility] Last Admin: 03/09/20 08:11 Dose: 10 mg Documented by: Morphine Sulfate (Morphine 4 Mg/Ml Sdv 1 Ml) 2 mg IVP Q4H PRN PRN Reason: SEVERE PAIN Ondansetron HCl (Ondansetron 2 Mg/Ml Sdv 2 Ml) 4 mg IVP Q2M PRN PRN Reason: NAUSEA Pantoprazole Sodium (Pantoprazole Dr 40 Mg Tablet) 40 mg PO DAILY [facility] Last Admin: 03/09/20 08:11 Dose: 40 mg Documented by: Vitals/I&O/Wt Last Vital Signs Temp 98.8 F 03/09/20 07:37 Pulse 64 03/09/20 09:04 Resp 16 03/09/20 09:02 BP 141/83 03/09/20 07:37 Pulse Ox 92 03/09/20 09:02 03/08/20 03/09/20 03/09/20 22:59 06:59 14:59 Intake Total 960 / 2400 Output Total 1425 / 2225 300 / 2525 325 / 325 Balance -465 / 175 -300 / -125 -325 / -325 Physical Exam Narrative: EXAM NARRATIVE: GENERAL: The patient is alert and oriented times three. Not in any acute distress. Extensive tattoo marking all over the body. Moderately obese. HEENT: No significant pallor, icterus or lymphadenopathy. The pupils are reactant to light. Oral cavity: There are no mucous membrane lesions. NECK: Trachea appears to be central. No masses noted. No JVD or thyromegaly appreciated. No carotid bruit. RESPIRATORY: Chest is symmetrical. No intercostals muscle retraction or any accessory muscle activation. There is no chest wall tenderness. Breath sounds are heard bilaterally. No rales or rhonchi heard. No evidence of any consolidation. BREASTS: Deferred. HEART: The PMI could not be palpated. No other palpable precordial events. S1 and S2 are normal. No S3 or S4 heard. No pericardial rub or any click heard. ABDOMEN: No vessel pulsations or distention. No tenderness. No organomegaly appreciated. No abdominal bruit. Bowel sounds are normally heard. : Deferred. RECTAL: Deferred. LYMPHATIC: No lymphadenopathy noted in the neck or groin. EXTREMITIES: No edema or cyanosis. No clubbing. The pulses are symmetrical bilaterally. The radial, femoral, dorsalis pedis and the posterior tibial pulses are palpated and found to be in good volume and amplitude. MUSCULOSKELETAL: No acute joint deformities or swelling SKIN: There are no significant scars or skin rash noted. Extensive tattoo markings in the upper and lower extremities and all over the body NEUROPSYCHIATRIC: The patient is alert and oriented x3. Appears to be in a good mood. The higher functions are grossly within normal limits. No tremors or rigidity noted. Data : 03/09/20 03:00 03/09/20 03:00 Other Labs: Laboratory Last Values WBC 10.0 10^3/uL (4.0-10.0) 03/09/20 03:00 RBC 5.31 10^6/uL (4.1-5.3) H 03/09/20 03:00 Hgb 16.6 g/dL (11.7-16.6) 03/09/20 03:00 Hct 49.9 % (42.0-52.0) 03/09/20 03:00 MCV 94.0 fL (80-94) 03/09/20 03:00 MCH 31.3 pg (28.0-34.0) 03/09/20 03:00 MCHC 33.3 g/dL (30.0-36.0) 03/09/20 03:00 RDW 12.6 % (12.1-15.1) 03/09/20 03:00 Plt Count 258 10^3/cmm (130-400) 03/09/20 03:00 MPV 11.2 fL (7.4-10.4) H 03/09/20 03:00 Neut % (Auto) 57.6 % 03/09/20 03:00 Lymph % (Auto) 28.4 % 03/09/20 03:00 [place] % (Auto) 9.6 % 03/09/20 03:00 Eos % (Auto) 2.9 % 03/09/20 03:00 Baso % (Auto) 1.2 % 03/09/20 03:00 Neut # (Auto) 5.74 10^3/uL (1.8-7.7) 03/09/20 03:00 Lymph # (Auto) 2.8 10^3/uL (0.8-4.8) 03/09/20 03:00 [place] # (Auto) 1.0 10^3/uL (0.2-0.9) H 03/09/20 03:00 Eos # (Auto) 0.3 10^3/uL (0.0-0.8) 03/09/20 03:00 Baso # (Auto) 0.1 10^3/uL (0.0-0.1) 03/09/20 03:00 Nucleated RBC % (auto) 0 % 03/09/20 03:00 Nucleated RBCs # 0.0 /100WBC 03/09/20 03:00 Sodium 138 mmol/L (136-145) 03/09/20 03:00 Potassium 4.0 mmol/L (3.5-5.1) 03/09/20 03:00 Chloride 101 mmol/L (98-107) 03/09/20 03:00 Carbon Dioxide 27 mmol/L (22-29) 03/09/20 03:00 Anion Gap 14.0 (5-19) 03/09/20 03:00 BUN 17 mg/dL (6-20) 03/09/20 03:00 Creatinine 1.2 mg/dL (0.7-1.2) 03/09/20 03:00 GFR Calculation 64.1 mL/min (90-130) L 03/09/20 03:00 Glucose 117 mg/dL (65-115) H 03/09/20 03:00 Estimat Average Glucose 105 03/07/20 09:57 Hemoglobin A1c 5.3 % (4.0-6.0) 03/07/20 09:57 Calculated Osmolality 289 mOsm/kg (285-295) 03/09/20 03:00 Calcium 10.3 mg/dL (8.5-10.5) 03/09/20 03:00 Total Bilirubin 0.3 mg/dL (0.15-1.2) 03/07/20 09:57 AST 17 U/L (0-40) 03/07/20 09:57 ALT 29 U/L (0-41) 03/07/20 09:57 Alkaline Phosphatase 95 IU/L (40-130) 03/07/20 09:57 Troponin T Baseline 18 ng/L (0-15) H 03/07/20 09:57 Troponin T 120 Minute 37.93 ng/L (0-15) H 03/07/20 12:08 Delta Troponin T 19.93 ABS# (0-10) H* 03/07/20 12:08 Troponin T Hi Sens 6Hr 27.56 ng/L (0-15) H 03/07/20 15:48 Troponin T Hi Sens 6Hr Delta 9.56 ng/L (0-12) 03/07/20 15:48 NT-Pro-B Natriuret Pep 47 pg/mL (0-125) 03/07/20 09:57 Total Protein 6.9 g/dL (6.6-8.7) 03/07/20 09:57 Albumin 4.7 g/dL (3.5-5.2) 12 09:57 Globulin 2.2 g/dL (1.3-4.6) 12 09:57 A&P Assessment and plan (1) Acute non-ST elevation myocardial infarction (NSTEMI): In view of the patient's the clinical presentation, strong family history for premature atherosclerotic heart disease, abnormal myocardial perfusion imaging, and multiple other risk factors, in order to further evaluate this coronary status, patient requires a cardiac catheterization. The risk of bleeding, hematoma, vascular injury, myocardial infarction, CVA, renal failure and other concomitant complications were explained in detail. Patient understood this well and consented to proceed. Patient is scheduled for the procedure today. Based on the results, further management decisions will be made Status: Acute (2) Elevated blood pressure reading: May continue on the current medications. Blood pressure seems to be slowly getting under control. Status: Acute (3) Abuse of smoked substance: He is strongly advised to quit smoking. Cardiovascular implications were discussed. Patient seems to understand this well. Status: Acute (4) Dyslipidemia (high LDL; low HDL): Patient may be continue on the atorvastatin. Status: Acute (5) Bradycardia: Because of the bradycardia episode, I may hold off on the beta-jacqueline at this time. His heart rhythm will be closely monitored on telemetry. Status: Acute Additional A&P Information Based on the patient's clinical progress and the results of the above, further management decisions will be made. Attestations Medical Necessity Statement*: Patient requires continued hospital stay for close monitoring and further management Coding Level of Care Code Acute Dietary Clerk for Rafaela Dow Diagnoses Acute non-ST elevation myocardial infarction (NSTEMI) I21.4 Elevated blood pressure reading R03.0 Abuse of smoked substance F18.10 Dyslipidemia (high LDL; low HDL) E78.5 Bradycardia R00.1
--- NOTE | 2020-03-09 12:11 | W.PM.OPSUD ---
Surgery/Procedure H&P Update DATE OF PROCEDURE: March 09, 2020 DATE H&P PERFORMED: 03/09/20 H&P UPDATE INFORMATION: I have reviewed H&P completed within last 30 days, I have examined patient prior to procedure and No changes to prior documentation PATIENT REASSESSED PRIOR TO SEDATION, WITH NO CHANGE NOTED: Yes PHYSICAL EXAM: alert, clear to auscultation bilaterally, regular rate & rhythm and operative site marked AIRWAY EVAL/ANESTHESIA PLAN: normal airway, see other exam findings, ASA III, Monitored Anesthesia, Local Anesthesia, Risks, benefits & alternatives of sedation and/or procedure discussed and Patient agrees to continue as planned
--- NOTE | 2020-03-09 12:30 | XACV_ITS ---
Exam Room: [facility] Ht: 183 cm Wt: 109 kg BSA: 2.38 m2 Gender: Male : 1970 Any Known Allergies: Demerol Exam Priority: Routine Procedure(s): Procedure Description: Diagnostic procedure Procedure Description: PCI procedure Procedure Description: Left Heart Catheterization Procedure Description: Left ventriculography Procedure Description: Drug Eluting Coronary Stent Procedure Description: PTCA Procedure Description: Coronary Angiography Diagnostic Cath Status: Urgent Diagnostic Findings * Coronary angiography shows right dominance. * The left main is a medium caliber vessel with no significant stenotic lesion. * The left anterior descending artery is a medium caliber vessel which appears to wrap around the LV apex . After giving off a large septal assistant infant teacher branch, the artery was found to have a high-grade stenosis of around 80 to 90%. The distal artery was found to have mild diffuse intimal irregularities. The first diagonal branch also was found to have minimal intimal irregularities with no significant stenotic lesions. The second diagonal branch was found to be a medium to large caliber tortuous vessel with mild diffuse intimal irregularities. * The left circumflex artery is a small to medium caliber nondominant vessel which also was found to have mild diffuse disease. [id number]-[id number] collaterals were noted filling up the PDA and the PLV branch of the right coronary artery. * Right coronary artery is a medium caliber vessel which appears to be totally occluded after giving of the AV lou branch. PCI Status: Urgent PCI Indication: NSTE - ACS Interventional Findings * mLAD: 80% stenosis treated with MDT R PHILLIP 3.5X8 CHARITO and MDT LIZ EUPHORA RX [id number] BALLOON. 0% residual stenosis, RACHEL: 3 flow. Conclusions 1. This is a 49-year-old white male with strong family history for premature atherosclerotic heart disease and a history of heavy smoking abuse, presented with a prolonged episode of chest pain. He had elevated troponin T. Subsequent myocardial perfusion imaging revealed small areas of reversible and reversible defect in the distribution of the right coronary artery. In view of the patient's presenting symptoms and the abnormal objective findings, in order to further evaluate his coronary status, a cardiac catheterization was recommended. Patient underwent left heart catheterization with left and right coronary angiogram and LV angiogram today. The findings are as follows. 2. Left main was normal with no significant stenotic lesions. 3. H 4. igh-grade lesion in the mid LAD, right after the takeoff of the first septal assistant infant teacher. Left circumflex artery was found to have mild diffuse intimal irregularities. Right coronary artery appears to be totally occluded after the AV lou branch. Fairly good, grade 3 hqqi-ag-etexr collaterals were noted during left coronary injection, filling of the PDA and the PLV branches of the right coronary artery. LVEDP was 6. LV ejection fraction was around 65%. No significant wall motion normalities were noted. 5. I discussed and reviewed the cardiac colorization data with Dr. Huston. It was thought to be appropriate to consider PCI of the LAD lesion. took over further management of this patient at this point. 6. mLAD was treated with Drug Eluting Stent and Balloon. Recommendations * 1-Return to inpatient for close monitoring and routine cath care 2-Risk factor modification for secondary prevention 3-Statin and aspirin 81 mg life--long, if tolerated 4-Patient was pre-loaded with 300 mg of Plavix, continue Plavix 75mg p.o. daily for at least one year. We will assess at the end of one year again to continue if further or not 5-Continue optimal medical management 6-Follow up with Dr. Turner in four weeks and your primary care in 10 days. Diagnostic RX Recommendation: PCI w/o planned CABG Ventriculography Ejection Fraction: 65.0 % LV EDP: 6 mmHg Left Ventriculography Findings: * The LV gram was performed in the LIANG projection. LV cavity appears to be normal size. There was no filling defects. No significant mitral valve prolapse or mitral regurgitation. Overall ejection fraction was around 65%. LVEDP was 6. Pressures Phase:Rest AO : 79 / 7 ( 32 ) @ 6:26:00 AM 85 / 66 ( 75 ) @ 6:27:00 AM 87 / 67 ( 78 ) @ 6:31:00 AM 94 / 63 ( 76 ) @ 6:35:00 AM 99 / 52 ( 74 ) @ 6:35:00 AM 118 / 93 ( 85 ) @ 7:00:00 AM 90 / 53 ( 69 ) @ 7:07:00 AM 81 / 64 ( 71 ) @ 7:19:00 AM LV : 130 / -11 / @ 6:34:00 AM 118 / -6 / @ 6:35:00 AM 122 / -6 / @ 6:35:00 AM Valves Phase:DefaultPhase AV : 26.0 @ 1:37:34 PM AV Mean Gradient: 21.0 @ 1:37:34 PM Clinical Evaluation EBL: 5mL-10mL Procedural Details Procedure Consent Obtained. Pre-Procedure Time Out. Identified patient by full name and date of as verbalized by the patient/guarantor. Does the consent match the physician's order: Yes. Accurate & Complete Informed Consent: Yes. Inpatient/Outpatient History & Physical on Chart: Yes. If H&P is completed, is and addenduem needed: N/A; If yes, is the addendum complete: N/A. Visualize and Verify Site with Patient/Guarantor: N/A. Relevant Radiology Images available: Yes. Pre-op teaching completed and patient verbalized understanding. The risks, benefits, and alternatives of sedation and/or procedure were discussed by physician. The patient agrees to continue. Procedure started. PERRLA. Strong, equal hand electrical engineering director bilaterally. Lungs clear x 5 lobes. IV Site on Arrival: 18 gauge in the left anticubital. IV Fluids: 0.9% NaCl at KVO. 0 mL infused prior to manager lab. Oxygen started at 2liters/min via nasal canula. right groin was prepped with chloroprep then draped in the usual sterile fashion. right radial was prepped with chloroprep then draped in the usual sterile fashion. Physician notified. Baseline sample Acquired. HR: 66 BPM. Equipment: 6F - Radial. Cardiac Cath Pack. ACIST Manifold Kit Model BT 2000. Heparinized Saline (2 units/mL), 1000 mL bag. Physician arrived. Physician scrubbed in. Immediate Pre-Procedure Time Out. Correct Patient: Yes; Correct Procedure: Yes; Correct Site: Yes; Correct Patient Position: Yes; Correct Supplies: Yes; Dried Flammable Prep: Yes; Blood Products Available: No;. Lidocaine 1% infiltrated to the right radial. Arterial access obtained. A 5 kazakh Greyson catheter in over wire. Catheter out. A 5 kazakh TIG catheter in over wire. Multiple views taken of left coronary artery. Catheter redirected to the RCA. Dr. Huston called. Multiple views taken of right coronary artery. Catheter out. A 5 kazakh Angled Pig catheter in over wire. EDP Sample taken: LV 130/-12,6; HR: 96 BPM; SpO2: 94%. LV gram performed in LIANG @ 10 mL/second for a total of 30 mL. EDP Sample taken: LV 118/-7,8; HR: 98 BPM; SpO2: 95%. Pullback taken: LV 122/-7,9; AO 94/63(76); Mean: 21mmHg, Peak to Peak: 26mmHg, SEP: 12sec/min; HR: 97 BPM; SpO2: 95%. Catheter out. Side port of sheath flushed with Normal Saline to maintain patency. [facility] Clinical Fraility Score: 4: Vulnerable. Sql Server Developer Indications: ACS > 24 hours. Chest Pain Symptom Assessment: Typical Angina Symptoms. Cardiovascular Instability: No. Patient's family updated. Dr. Huston arrived. Patient's family updated. Dr. Huston scrubbed in to perform intervention. Inventory is Proteocyte Diagnosticstronic [place] XT .014 190cm Str. Guidewire. ACT drawn. Results 156 seconds. Therapeutic limits - pre-heparin administration 90-150 seconds and monitoring heparin during a vascular procedure >250 seconds. 6 kazakh XB 3.5 guide catheter was inserted over the wire. [place] guidewire was advanced through the guide catheter to lesion in the septal branch. stent inserted and removed intact. Inflation Number : 1 Connie Posada PHILLIP 3.5X8 CHARITO -Lot Number# [id number] exp 06-06-2021 was prepped and advanced across the 1st Septal. The stent was deployed at 16 KENNY for 0:00 seconds. Stent balloon out over wire. Inflation number : 2 Connie HILL PEDROPHORA RX [id number] BALLOON was prepped and advanced across the 1st Septal , then inflated to 18 KENNY for 0:14 seconds. Balloon out. Results checked. Wire out. Guide catheter out. 6 kazakh JL 3.5 guide catheter was inserted over the wire. Results checked. Guide catheter out. ACT drawn. Results 236 seconds. Therapeutic limits - pre-heparin administration 90-150 seconds and monitoring heparin during a vascular procedure >250 seconds. A TR Band was successful obtaining hemostatsis at the Right Radial artery insertion site. TR band placed. Hemostasis obtained. Post Procedure: Pulses reassessed and unchanged. PERRLA. Strong, equal hand electrical engineering director bilaterally. No VTE prophylaxis required. Fluoro: 21:06. Contrast type used: Omnipaque 300 mgI/mL, 500 mL bottle. [id number]. Post-op diagnosis: EGG BUYER to RCA with collateral signifiant mid LAD post stent mid LAD. Complications: none. Estimated blood loss: 5mL-10mL. Procedure completed. Patient transferred by wheelchair to 1st floor. PCI Indication: NSTE. Medication's Wasted: Heparin = 1000 units. Vital chart was stopped. Medication's Wasted: Lidocaine 1% = 18 mL. Medication's Wasted: Nitro = 49.6 mg. Total IV fluids: 400 mL. Access Site Site: Right Radial artery Sheath Size: 6 Fr Hemostasis Method: TR Band Hemostasis Success: Successful Procedure Medications Start: 12:04 PM Stop: 12:04 PM Medication: Benadryl Amount: 50 mg Route: I.V. Start: 12:11 PM Stop: 12:11 PM Medication: Versed Amount: 1 mg Route: I.V. Start: 12:11 PM Stop: 12:11 PM Medication: Fentanyl Amount: 50 mcg Route: I.V. Start: 12:20 PM Stop: 12:20 PM Medication: Verapamil Amount: 5 mg Route: I.A. Start: 12:21 PM Stop: 12:21 PM Medication: Nitrogylcerin Amount: 200 mcg Route: I.A. Start: 12:22 PM Stop: 12:22 PM Medication: Heparin Amount: 5000 units Route: I.V. Start: 12:35 PM Stop: 12:35 PM Medication: 0.9% Saline Amount: 250 ml Route: I.V. bolus Start: 12:50 PM Stop: 12:50 PM Medication: Versed Amount: 1 mg Route: I.V. Start: 12:50 PM Stop: 12:50 PM Medication: Fentanyl Amount: 50 mcg Route: I.V. Start: 12:54 PM Stop: 12:54 PM Medication: Heparin Amount: 5000 units Route: I.V. Start: 1:17 PM Stop: 1:17 PM Medication: Nitrogylcerin Amount: 200 mcg Route: I.C. I, the attending physician, have reviewed and verified all procedure medications. Yes, all medications given per verbal order History/Risk Factors Hypertension: Yes Dyslipidemia: Yes Report Signatures Interventional Workflow Finalized by Anabella Huston MD on 03/21/2020 07:06 PM Diagnostic Workflow Finalized by Dr Emmanuel Turner MD [facility] on 03/09/2020 06:27 PM
--- NOTE | 2020-03-09 16:39 | PC.RESP ---
Smoking Cessation and Pulmonary Rehab information sent to patient.
--- NOTE | 2020-03-09 20:02 | P.PN_ITS ---
Subjective Subjective: Interval history: He is doing well following angiography. Denies any chest pain or pressure. No trouble breathing. He is hungry. Vitals/I&O/Wt Last Vital Signs Temp 98.5 F 03/09/20 19:03 Pulse 70 03/09/20 19:03 Resp 18 03/09/20 19:03 BP 101/52 03/09/20 19:03 Pulse Ox 91 03/09/20 19:03 03/09/20 03/09/20 03/09/20 06:59 14:59 22:59 Intake Total 480 / 480 Output Total 300 / 2525 325 / 325 750 / 1075 Balance -300 / -125 -325 / -325 -270 / -595 Physical Exam Const: COMMON NORMALS: no acute distress, patient oriented x3 and alert GENERAL APPEARANCE: cooperative and disheveled NUTRITIONAL APPEARANCE: overweight ORIENTATION/CONSCIOUSNESS: Yes awake OTHER: Pleasant, conver carlo. HENMT: COMMON NORMALS: oropharynx normal Neck/C-Spine: COMMON NORMALS: no JVD Resp: COMMON NORMALS: normal respiratory effort AUSCULTATION: no rales, no rhonchi, no wheezes and diminished lung sounds Cardio: COMMON NORMALS: no JVD, regular rhythm, S1 normal heart sound present, S2 normal heart sound present and No murmurs present (Cardio) RHYTHM: regular rhythm HEART SOUNDS: S1 normal heart sound present and S2 normal heart sound present GI: COMMON NORMALS: Normal to inspection, nondistended, normoactive bowel sounds present, Soft to palpation and non-tender PALPATION: Yes Soft to palpation Extremity: COMMON NORMALS: no pedal edema OTHER: Minimal edema R ankle Neuro: COMMON NORMALS: patient oriented x3 and moves all extremities SENSORIUM/ORIENTATION: Yes alert Skin: COMMON NORMALS: no rashes or lesions noted NARRATIVE SKIN EXAM: TR band right wrist. GENERAL SKIN EXAM: no rashes or lesions noted Data : 03/09/20 03:00 03/09/20 03:00 A&P Assessment and plan (1) Non-ST elevation MT (NSTEMI): Underwent coronary geography today with stent placement. Monitor after procedure. Recheck renal function in the morning. Echocardiogram with ejection fraction 50-55%. Abnormal stress test with partially reversible perfusion defect in inferior wall appears to be secondary to prior MT with latisha-infarct ischemia. Continue cardiac meds. No PE on CTA. Status: Acute (2) COPD (chronic obstructive pulmonary disease): Continue nebulizer treatments. Will need inhalers on discharge. Discussed with him again to establish with a PCP and follow-up for reassessment and adjustment of therapy. Continue to encourage smoking cessation. Status: Acute (3) Current smoker: Encourage smoking cessation. We will provide nicotine replacement as needed. Status: Acute (4) Sleep apnea: Reports intermittent symptoms of sleep apnea. Would benefit from sleep study. Status: Acute (5) Right leg swelling: Minimal right leg swelling. 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 Unremarkable CTA. Status: Acute (6) HTN (hypertension): Somewhat variable blood pressure, elevated as high as 170 systolic. He is not aware of history of hypertension in the past. BP good w HCTZ. Monitor blood pressures. Cardiac diet. Status: Acute Additional A&P Information Continue hospitalization for stress management after non-STEMI, coronary angiography, reassessment of renal function, with likely discharge in the morning. Attestations Medical Necessity Statement*: Continue hospitalization for assessment management of non-STEMI requiring coronary angiography with stent placement. Coding Level of Care Code Acute Pattern And Chain Maker for Rafaela Dow Diagnoses Non-ST elevation MT (NSTEMI) I21.4 COPD (chronic obstructive pulmonary disease) J44.9 Current smoker F17.200 Sleep apnea G47.30 Right leg swelling M79.89 HTN (hypertension) I10
[2020-03-09] MEDS: sodium chloride 0.9% 1,000 ML 100 ML IV (20:21)
[2020-03-09] MEDS: atorvastatin 40 mg Tablet PO (20:22)
[2020-03-09] MEDS: temazepam 15 mg Capsule PO (20:22)
--- NOTE | 2020-03-09 21:16 | PC.NURSE ---
PT IS RESTING IN BED. PT DENIES PAIN. PULSE IS PALPABLE DISTAL OF INCISION. PT WANTED SOMETHING TO HELP SLEEP. PRN RESTORIL WAS GIVEN. WILL CONTINUE TO MONITOR.
[2020-03-10] VITALS (7 sets, daily range): BP systolic 113–134; BP diastolic 59–95; PULSE 68–87; RESP 14–18; TEMP 36.5–36.7; O2SAT 95–97
[2020-03-10] MEDS: enoxaparin 100 mg/mL Syringe SUBCUT (00:18)
--- NOTE | 2020-03-10 05:24 | PC.NURSE ---
PT HAD AN UNEVENTFUL NIGHT. DENIES PAIN. PT STATES THAT HE WANTS TO GO HOME. WILL CONTINUE TO MONITOR.
[2020-03-10] MEDS: sodium chloride 0.9% 1,000 ML 100 ML IV (05:59)
[2020-03-10 06:25] LABS: Basophils # 0.1 10^3/uL (0.0-0.1); Basophils % 0.9 %; Eosinophils # 0.3 10^3/uL (0.0-0.8); Hematocrit 48.9 % (42.0-52.0); Hemoglobin 16.5 g/dL (11.7-16.6); Lymphocytes # 2.8 10^3/uL (0.8-4.8); Lymphocytes % 25.5 %; Mean Corpuscular HGB Conc 33.7 g/dL (30.0-36.0); Mean Corpuscular Hemoglobin 31.5 pg (28.0-34.0); Mean Corpuscular Volume 93.5 fL (80-94); Monocytes # 0.9 10^3/uL (0.2-0.9); Monocytes % 8.5 %; Neutrophils # 6.67 10^3/uL (1.8-7.7); Neutrophils % 61.6 %; Nucleated Red Blood Cells % 0 %; Platelet Count 254 10^3/cmm (130-400); Red Blood Count 5.23 10^6/uL (4.1-5.3); Red Cell Distribution Width 12.6 % (12.1-15.1); White Blood Count 10.8 10^3/uL (4.0-10.0)
[2020-03-10 06:53] LABS: Calcium 9.8 mg/dL (8.5-10.5)
[2020-03-10 07:36] LABS: Anion Gap 13.4 (5-19); Blood Urea Nitrogen 22 mg/dL (6-20); Carbon Dioxide 24 mmol/L (22-29); Chloride 104 mmol/L (98-107); Glomerular Filtration Rate 58.4 mL/min (90-130); Glucose 107 mg/dL (65-115); Osmolality Calculated 288 mOsm/kg (285-295); Potassium 4.4 mmol/L (3.5-5.1); Sodium 137 mmol/L (136-145)
[2020-03-10] MEDS: clopidogrel 75 mg Tablet PO (08:45)
[2020-03-10] MEDS: lisinopril 10 mg Tablet PO (08:45)
[2020-03-10] MEDS: aspirin 81 mg EC Tablet PO (08:45)
[2020-03-10] MEDS: pantoprazole DR 40 mg Tablet PO (08:45)
--- NOTE | 2020-03-10 12:17 | P.PN_ITS ---
Subjective Subjective: Interval history: Status post PCI to mid LAD for 80% tight mid stenosis. Denies any complaint feeling much better breathing better not short of breath anymore. Medications: Reviewed: Yes Medication Review Details: Current Medications Acetaminophen (Acetaminophen 325 Mg Tablet) 650 mg PO Q6H PRN PRN Reason: Mild/Mod Pain Or Temp >/= 101 Last Admin: 03/08/20 09:21 Dose: 650 mg Documented by: Albuterol/Ipratropium (Ipratropium-Albuterol 3 Ml Neb) 3 ml INHALATION Q6H.RESPIRATORY [facility] Last Admin: 03/09/20 09:00 Dose: 3 ml Documented by: Albuterol/Ipratropium (Ipratropium-Albuterol 3 Ml Neb) 3 ml INHALATION Q6H PRN PRN Reason: SHORTNESS OF BREATH Aspirin (Aspirin 81 Mg Ec Tablet) 81 mg PO DAILY [facility] Last Admin: 03/09/20 08:11 Dose: 81 mg Documented by: Atorvastatin Calcium (Atorvastatin 40 Mg Tablet) 40 mg PO BEDTIME [facility] Last Admin: 03/08/20 20:34 Dose: 40 mg Documented by: Clopidogrel Bisulfate (Clopidogrel 75 Mg Tablet) 75 mg PO DAILY [facility] Last Admin: 03/09/20 08:11 Dose: 75 mg Documented by: Enoxaparin Sodium (Enoxaparin 100 Mg/Ml Syringe) 100 mg SUBCUT Q12H [facility] Last Admin: 03/09/20 00:46 Dose: 100 mg Documented by: Hydrochlorothiazide (Hydrochlorothiazide 25 Mg Tablet) 25 mg PO DAILY [facility] Last Admin: 03/09/20 08:11 Dose: 25 mg Documented by: Lisinopril (Lisinopril 10 Mg Tablet) 10 mg PO DAILY [facility] Last Admin: 03/09/20 08:11 Dose: 10 mg Documented by: Morphine Sulfate (Morphine 4 Mg/Ml Sdv 1 Ml) 2 mg IVP Q4H PRN PRN Reason: SEVERE PAIN Ondansetron HCl (Ondansetron 2 Mg/Ml Sdv 2 Ml) 4 mg IVP Q2M PRN PRN Reason: NAUSEA Pantoprazole Sodium (Pantoprazole Dr 40 Mg Tablet) 40 mg PO DAILY [facility] Last Admin: 03/09/20 08:11 Dose: 40 mg Documented by: Vitals/I&O/Wt Last Vital Signs Temp 98.1 F 03/10/20 11:29 Pulse 74 12/05/20 11:29 Resp 18 03/10/20 11:29 BP 120/95 03/10/20 11:29 Pulse Ox 96 03/10/20 11:29 03/09/20 03/10/20 03/10/20 22:59 06:59 14:59 Intake Total 720 / 720 1443.333 / 2163.333 480 / 480 Output Total 1250 / 1575 500 / 2075 150 / 150 Balance -530 / -855 943.333 / 88.333 330 / 330 Physical Exam Narrative: EXAM NARRATIVE: GENERAL: Patient is alert, awake and oriented x3. NECK: No jugular vein distension. HEENT: No cyanosis. No icterus. No pallor. HEART: Regular S1 and S2. No murmur, rub or gallop. LUNGS: Clear to auscultate bilaterally. ABDOMEN: Soft, nontender and nondistended. Positive bowel sounds. No guarding, r ebound or tenderness. CENTRAL NERVOUS SYSTEM: Grossly nonfocal. EXTREMITIES: Lower extremities withot edema bilaterally. Data : 03/10/20 05:56 03/10/20 05:56 A&P Assessment and plan (1) Acute non-ST elevation myocardial infarction (NSTEMI): Status post PCI to mid LAD. Continue aspirin statin beta-jacqueline and clopidogrel. Continue clopidogrel for at least 1 year after that we will decide. Follow-up with Dr. Turner in 1 month, follow-up with Rosa Fernando in 7 days. Status: Acute (2) Elevated blood pressure reading: Metoprolol lisinopril has been added appeared to be optimally controlled continue current regimen Status: Acute (3) Abuse of smoked substance: Patient is on nicotine patch would like to quit Status: Deleted (4) Dyslipidemia (high LDL; low HDL): Patient may be continue on the atorvastatin. Status: Acute (5) Bradycardia: Because of the bradycardia episode, I may hold off on the beta-jacqueline at this time. His heart rhythm will be closely monitored on telemetry. Status: Acute Additional A&P Information Based on the patient's clinical progress and the results of the above, further management decisions will be made. Attestations Medical Necessity Statement*: As per medicine Coding Level of Care Code Acute Ammonia Distiller for Rafaela Dow Diagnoses Acute non-ST elevation myocardial infarction (NSTEMI) I21.4 Elevated blood pressure reading R03.0 Abuse of smoked substance F18.10 Dyslipidemia (high LDL; low HDL) E78.5 Bradycardia R00.1
--- NOTE | 2020-03-10 13:51 | P.DS_ITS ---
Discharge Providers Date of Admission: 03/07/20 14:30 Date of Discharge: March 10, 2020 Attending Provider at Admission: Jie Sifuentes MD Attending Provider at Discharge: Titus Flores Diagnoses at Discharge Discharge Diagnosis (1) Acute non-ST elevation myocardial infarction (NSTEMI): Status: Acute (2) Elevated blood pressure reading: Status: Acute (3) Abuse of smoked substance: Status: Acute (4) Dyslipidemia (high LDL; low HDL): Status: Acute (5) Bradycardia: Status: Acute Reason for Visit Reason for Visit: cp/diff breathing Hospital Course Hospital Course Pleasant 49-year-old gentleman with history of COPD, current smoker, was admitted due to episodes of chest pain and pressure, recurrent, with a worse episode the morning of admission 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 Troponin initially with rising level, however, subsequently with decrease again. His chest pain had resolved. It was assessed by echocardiogram which showed low normal EF, 50-55%, no regional wall motion of normality. CT angiogram chest on h admission without PE or other acute abnormality. Minimal swelling of right lower extremity noted. Underwent assessment by bilateral lower extremity duplex ultrasound without finding of VTE. He was assessed by stress test which was abnormal with partially reversible inferior wall defect representing prior infarct with latisha-infarct ischemia. He was treated for non-STEMI. Underwent additional assessment by coronary angiography and had stent placement to LAD for 80% tight mid stenosis. He was feeling much better following the procedure. He is started on CAD medications per cardiology, and is recommended to quit smoking, monitor his blood pressures, follow-up with cardiology in office. Please assist him with quitting smoking as he is interested in quitting. Blood pressure elevated on presentation. This appears to have improved with treatment in the hospital. Please reassess his blood pressure log, adjust treatment as appropriate. During the hospital noted to have mild acute kidney injury, creatinine up to 1.3. This may be secondary to lisinopril initiation, although he did also have CT angiogram performed on admission, and coronary angiogram 48 hours later. Please reassess renal function. Avoid any nephrotoxic medications. Please note he also has not been using inhalers for his COPD. He is started on Combivent, albuterol as needed. Please follow-up on his symptoms, adjust therapy as appropriate. On admission he also reports that his has noticed he stops breathing during sleeping due to possible sleep apnea he is referred for sleep study. Physical Exam Const: COMMON NORMALS: no acute distress, patient oriented x3 and alert GENERAL APPEARANCE: cooperative and disheveled NUTRITIONAL APPEARANCE: overweight ORIENTATION/CONSCIOUSNESS: Yes awake OTHER: Pleasant, conversant. He is awake, alert, in good spirits. Denies any complaints. Feeling well. Ready to go home. HENMT: COMMON NORMALS: oropharynx normal Neck/C-Spine: COMMON NORMALS: no JVD Resp: COMMON NORMALS: normal respiratory effort AUSCULTATION: no rales, no rhonchi, no wheezes and diminished lung sounds Cardio: COMMON NORMALS: no JVD, regular rhythm, S1 normal heart sound present, S2 normal heart sound present and No murmurs present (Cardio) RHYTHM: regular rhythm HEART SOUNDS: S1 normal heart sound present and S2 normal heart sound present GI: COMMON NORMALS: Normal to inspection, nondistended, normoactive bowel sounds present, Soft to palpation and non-tender PALPATION: Yes Soft to palpation Extremity: COMMON NORMALS: no pedal edema Neuro: COMMON NORMALS: patient oriented x3 and moves all extremities SENSORIUM/ORIENTATION: Yes alert Skin: COMMON NORMALS: no rashes or lesions noted GENERAL SKIN EXAM: no rashes or lesions noted Discharge Data Data Completed and Pending: Completed Studies During Hospitalization Category Date Time Status CT angio chest PE protcl [id number] Rout ine Cat Scan 03/07/20 13:41 Completed Sestamibi Stress Test Request Routi ne Exams 03/08/20 09:00 Completed XR chest 1V jc ble [id number] Stat Exams 03/07/20 09:56 Completed NM [place] perf SPECT r/s* [id number] Routin e Nuc Med 03/08/20 16:49 Completed CV echo complete* [id number] Routine Ultrasound 03/07/20 13:57 [place] [id number] Routin e Ultrasound 03/07/20 13:57 Completed Pending at discharge Category Date Time Status [employer] 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 Routin e Exams 03/09/20 12:30 Taken Labs from last 24 hours 03/10/20 03/10/20 05:56 05:56 WBC 10.8 H RBC 5.23 Hgb 16.5 Hct 48.9 MCV 93.5 MCH 31.5 MCHC 33.7 RDW 12.6 Plt Count 254 MPV 11.0 H Neut % (Auto) 61.6 Lymph % (Auto) 25.5 [place] % (Auto) 8.5 Eos % (Auto) 3.0 Baso % (Auto) 0.9 Neut # (Auto) 6.67 Lymph # (Auto) 2.8 [place] # (Auto) 0.9 Eos # (Auto) 0.3 Baso # (Auto) 0.1 Nucleated RBC % (a uto) 0 Nucleated RBCs # 0.0 Sodium 137 Potassium 4.4 Chloride 104 Carbon Dioxide 24 Anion Gap 13.4 BUN 22 H Creatinine 1.3 H GFR Calculation 58.4 L Glucose 107 Calculated Osmolal ity 288 Calcium 9.8 Vitals: Last Vital Signs Temp 98.1 F 03/10/20 13:09 Pulse 72 03/10/20 13:09 Resp 18 03/10/20 13:09 BP 118/88 03/10/20 13:09 Pulse Ox 96 03/10/20 13:09 Discharge Plan Discharge Patient Disposition: Home Condition: Stable Prescriptions: New Combivent Respimat 20-100 mcg/actuation mist 1 puff inhalation Q6H Qty: 4 RF: 0 Ventolin HFA 90 mcg/actuation HFA aerosol inhaler 2 inh inhalation Q6H PRN (Reason: shortness of breath or wheezing) Qty: 8.5 RF: 0 nicotine (polacrilex) 2 mg lozenge 4 mg buccal Q1H PRN (Reason: nicotine cravings) Qty: 108 RF: 3 nicotine 21 mg/24 hr patch 24 hour 1 patch transdermal DAILY Qty: 30 RF: 0 clopidogrel 75 mg Tablet 75 mg PO DAILY Qty: 90 RF: 4 lisinopril 10 mg Tablet 5 mg PO DAILY Qty: 30 RF: 3 Adult Aspirin Regimen 81 mg tablet,delayed release (DR/EC) 81 mg PO DAILY Qty: 90 RF: 0 metoprolol succinate 25 mg capsule,sprinkle,ER 24hr 12.5 mg PO DAILY Qty: 30 RF: 4 atorvastatin 40 mg tablet 40 mg PO DAILY Qty: 30 RF: 6 Discontinued Excedrin Migraine 250-250-65 mg Tablet 2 tab PO PRN RF: 0 Discharge Orders: Discharge Order (Routine); Ordered 03/10/20 Ordered By: Titus Flores Other Ambulatory Orders: Sleep Study/Titration (Routine) Timeframe: 1 Week Location: None Selected Ordered By: Titus Flores Referrals: Emmanuel Turner MD [Physician] - 1 month ([facility] will be be calling to set a cardiology followup with Dr. Turner to be seen in 1 month. If you don't hear from them by Thursday, please give them a call. Thank you) María Elena Hein [Referring] - 03/12/20 11:20 am (Please keep your appointment on March 12 at 11:20am with Dr. Hein) Rosa Fernando FNP [Nurse Practitioner] - 1 week ([facility] will be be calling to set a post procdure followup with ANT Conde to be seen in 1 week. If you don't hear from them by Thursday, please give them a call. Thank you) Discharge Diet: Cardiac Patient Instructions: Metoprolol (By mouth), Lisinopril (By mouth), Clopidogrel (By mouth), Left Heart Catheterization (DC) Activity Restrictions/Additional Instructions: Please have your primary care doctor recheck your kidney function. Your creatinine is noted mildly increased to 1.3, possibly after starting of lisinopril which sometimes may be expected. However, please have your primary care doctor check to make sure that creatinine is not rising further from a kidney injury after contrast administration. Please avoid any NSAIDs like ibuprofen, Aleve, etc. Please discuss with your primary care doctor regarding heart attack you have had. Please continue your efforts to stop smoking entirely. 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 If your blood pressure is very elevated, above 190 top number or 100 bottom number, and not responding to medications, please seek medical attention without delay. If you experience any persistent chest pain, any significant shortness of breath, or any other concerning symptoms please call 911. Please follow-up with sleep study and discuss results with your primary care doctor to assess for sleep apnea. Please discuss with your primary care doctor any additional assessment may be needed for COPD. Discussed inhalers that are started for you. Your primary care doctor may consider referring you to a lung specialist if needed. Centralized Scheduling will be calling with the details of a sleep study. If you don't hear from them within a reasonable amount of time, please give them a call at [phone] Discharge Attestations Time Spent in Discharge Care*: greater than 30 min Quality Metrics Clinical Quality Measures During this hospital stay, did patient experience: AMI Clinical Trial Participant: No Contraindication to aspirin (AMI): Aspirin given Contraindication to statin: Statin prescribed Contraindication to PCI: PCI performed Coding Level of Care Code Acute Buildings And Grounds Director for bailey Fwd Diagnoses Acute non-ST elevation myocardial infarction (NSTEMI) I21.4 Elevated blood pressure reading R03.0 Abuse of smoked substance F18.10 Dyslipidemia (high LDL; low HDL) E78.5 Bradycardia R00.1
== END 2020-03-10 14:00 | disposition home or self-care (01) | DRG 247 ==
LOC: ER 12:53 → CSU 20:24
PROVIDERS: Internal Medicine Cardiovascular Disease; Admitting Provider Family Medicine; Emergency Provider Emergency Medicine; Visit Provider Internal Medicine
PROC: 027034Z Dilation of Coronary Artery, One Artery with Drug-eluting Intraluminal Device, Percutaneous Approach (ICD-10-PCS; principal; 2020-03-09 12:00)
DX: I21.4 Non-ST elevation (NSTEMI) myocardial infarction (principal); N17.9 Acute kidney failure, unspecified; I25.10 Atherosclerotic heart disease of native coronary artery without angina pectoris; J44.9 Chronic obstructive pulmonary disease, unspecified; F17.210 Nicotine dependence, cigarettes, uncomplicated; G47.30 Sleep apnea, unspecified; M79.89 Other specified soft tissue disorders; I10 Essential (primary) hypertension; Z82.41 Family history of sudden cardiac death; E78.5 Hyperlipidemia, unspecified; R00.1 Bradycardia, unspecified
CPT/HCPCS: 12345; 36415; 71045; 71275; 78452; 80048; 80053; 83036; 83880; 84484; 85025; 85347; 93005; 93017; 93306; 93452; 93970; 94640; 96372; 96375; 99282; A9500; C1725; C1769; C1874; C1887; C1894; C9600; J0360; J1200; J1644; J1650; J2250; J2785; J3010; J3490; J7030; Q9967

== ENCOUNTER → 2020-03-20 10:22 | Outpatient (BNVA) | payer SELFPAY | PROVIDERS: Visit Provider Nurse Practitioner Family | DX: I25.119 Atherosclerotic heart disease of native coronary artery with unspecified angina pectoris (principal) | CPT/HCPCS: 80048 ==

== ENCOUNTER 2020-03-21 20:00 | Outpatient (CLI) | payer SELFPAY | END 2020-03-21 20:01 | disposition home or self-care (01) | LOC: SLEEP 03-22 09:46 | PROVIDERS: Visit Provider Internal Medicine | DX: G47.10 Hypersomnia, unspecified (principal); R06.83 Snoring; G47.33 Obstructive sleep apnea (adult) (pediatric) | CPT/HCPCS: 95810 ==

== ENCOUNTER 2020-05-18 12:22 | Inpatient (IN) | payer SELFPAY ==
[2020-05-18] VITALS (8 sets, daily range): BP systolic 108–146; BP diastolic 55–79; PULSE 67–88; RESP 15–26; TEMP 36.4–37.1; O2SAT 89–98; BMI 31.1
--- NOTE | 2020-05-18 12:44 | CT_ITS ---
WS: [id number] CT ABDOMEN PELVIS TECHNIQUE: Noncontrast CT of the abdomen and pelvis with coronal and sagittal reformatted images. CLINICAL INFORMATION: fall from 6 feet. possible seizure COMPARISON: None. DLP: 1185.[address] scans at [facility] use at least one of these dose optimization techniques: automat ed exposure control; mA and/or kV adjustment per patient size (includes targeted exams where dose is matched to clinical indication); or iterative reconstruction. FINDINGS: Noncontrast liver is normal. Normal gallbladder. Adrenal glands are normal. No free fluid in the abdo men or pelvis. No evidence of solid organ injury. Minimal lumbar curve. Normal noncontrast kidneys. No hydronephrosis. Normal noncontrast spleen. Lung bases are well aerated . Mild fatty atrophy of the pancreas. Sigmoid diverticulosis. No evidence of acute diverticulitis. No rmal caliber abdominal aorta. No abdominal or pelvic lymphadenopathy. CT/CT abdomen pelvis wo con [id number] IMPRESSION: 1. No free fluid in the abdomen or pelvis. No evidence of solid organ injury. 2. Sigmoid diverticulosis. No evidence of acute diverticulitis. 3. No acute abdominal or pelvic findings.
--- NOTE | 2020-05-18 12:44 | CT_ITS ---
WS: [id number] CT HEAD TECHNIQUE: Noncontrast CT of the head obtained from the skullbase to the vertex. CLINICAL INFORMATION: fall from 6 feet. possible seizure COMPARISON: None. DLP: 790.[address] scans at [facility] use at least one of these dose optimization techniques: automat ed exposure control; mA and/or kV adjustment per patient size (includes targeted exams where dose is matched to clinical indication); or iterative reconstruction. FINDINGS: No evidence of intracranial hemorrhage or mass effect. Ventricular system and basal cisterns are holbrook nt. No extra-axial fluid collections. No evidence of mass or mass effect. Normal siddiqui-white different iation. Mastoid air cells are well aerated. Mild mucosal thickening in the paranasal sinuses. Inspissated sec retions in the right sphenoid sinus. Normal visualized soft tissues. CT/CT head wo con* [id number] IMPRESSION: 1. No evidence of intracranial hemorrhage or mass effect. 2. No acute intracranial findings.
--- NOTE | 2020-05-18 12:49 | ECG_ITS ---
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 Measurements Intervals [place] Rate: 66 P: 62 UT: 146 QRS: 88 QRSD: 101 T: 55 QT: 443 QTc: 466 Interpretive Statements SINUS RHYTHM WITH MARKED SINUS ARRHYTHMIA Compared to ECG 03/07/2020 15:52:43 T-wave abnormality no longer present Electronically Signed On 05-19-2020 19:17:50 AGENCY SALES DIRECTOR by Emmanuel Turner M.D. [id number]
--- NOTE | 2020-05-18 12:50 | CT_ITS ---
WS: [id number] CT CERVICAL TRAUMA TECHNIQUE: Noncontrast CT of the cervical spine with coronal and sagittal reformatted images. CLINICAL INFORMATION: fall from 6 feet. possible seizure COMPARISON: None. DLP: 794.[address] scans at [facility] use at least one of these dose optimization techniques: automat ed exposure control; mA and/or kV adjustment per patient size (includes targeted exams where dose is matched to clinical indication); or iterative reconstruction. FINDINGS: Straightening of the normal cervical lordosis. Normal craniocervical junction. Normal C1-C2 articulat ion. Dens is normal in appearance. Normal occipital condyles. No high-grade spinal canal narrowing. N ormal C1 ring. No evidence of acute fracture or dislocation. Mild spondylitic changes. Normal prevertebral soft tissues. Mastoids air cells are well aerated. CT/CT cervical spin wo con* [id number] IMPRESSION: No evidence of acute fracture or dislocation.
--- NOTE | 2020-05-18 12:52 | W.ED.FALL ---
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 He was down for approximately 10 minutes and not responding appropriately at that time. EMS arrived and he was responding appropriately he has a bite mainor to his right tongue and has urinated in his pants. He says he thinks it is possible he had another seizure. In the ER he is alert and oriented x4 and admits nausea, tongue pain, and abdominal pain. He is tender in his belly diffusely. Associated symptoms-after fall: Reports abdominal pain; Denies chest pain, confusion, difficulty walking, headache(s) or neck pain Review of Systems General: Reports: 10 or more systems reviewed and unremarkable except in HPI and below Const: Denies: fatigue Eyes: Denies: change in vision, blurry vision or eye redness ENMT: Reports: other (tongue pain); Denies: throat pain, swelling of lips/tongue, ear or mastoid pain or nasal congestion Card: Denies: chest pain, palpitations, irregular heart rhythm, edema, dyspnea on exertion or orthopnea Resp: Denies: dyspnea, productive cough or non-productive cough GI: Reports: abdominal pain and nausea; Denies: diarrhea or GI cramping : Denies: flank pain, urinary frequency or urinary urgency Musc: Denies: neck pain, back pain, extremity pain, joint pain, joint redness, limited range of motion or muscle weakness Skin/Breast: Denies: rash, pruritus, erythema, skin pain or skin tenderness Neuro: Denies: headache(s), numbness in extremities, weakness in extremities, sensory changes, difficulty walking, dizziness, confusion or Slurred speech present Psych: Denies: anxiety or depression Endo: Denies: polyuria All/Imm: Denies: urticaria, throat swelling or tongue swelling PFSH ED PFSH: Medical History Acute non-ST elevation myocardial infarction (NSTEMI) Atherosclerotic heart disease [place] coronary artery w/angina pectoris Bradycardia COPD (chronic obstructive pulmonary disease) Current smoker Dyslipidemia (high LDL; low HDL) Elevated blood pressure reading Surgical History Amputation finger traumatic, with surgical reattachment of both index fingers History of ankle surgery Previous back surgery Coccyx Family History Father CAD (coronary artery disease) of massive [place] in his 40s Diabetes Stroke Mother Cancer Lung cancer Lung disease Denies family history of Clotting disorder Dementia Chronic kidney disease (CKD) Suicide Anesthesia complication Bleeding disorder Social History Smoking and tobacco status: heavy tobacco smoker cigarettes Packs smoked per day: 1.5 [ Other cigarette details: Previously up to 4ppd, then 2, now down to 1 ] Alcohol intake: never Substance/Drug Use: never Lives independently: Yes Household members: spouse Marital status: Current occupational status: employed Physical Exam Const: COMMON NORMALS: no acute distress, average body habitus, patient oriented x3, no limitations, healthy appearing, alert and well nourished GENERAL APPEARANCE: cooperative, comfortable, well kempt and well developed ORIENTATION/CONSCIOUSNESS: Yes awake, Yes oriented to person, Yes oriented to place and Yes oriented to time HENMT: COMMON NORMALS: normocephalic, external ears normal and Normal external nose present HEAD & SCALP: normal to inspection and normocephalic NOSE: Normal external nose present EXTERNAL EAR: Yes external ears normal MOUTH: Normal oral and palatal mucosa present THROAT: posterior oropharynx normal Eye: COMMON NORMALS: Equal, round and reactive pupils present and EOMs intact bilaterally GENERAL EYE: appearance normal, both eyes and all related structures PUPIL: Yes Equal, round and reactive pupils present Neck/C-Spine: COMMON NORMALS: full ROM, no lymphadenopathy, no meningeal signs and no JVD GENERAL: Yes normal visual inspection Lymph: LYMPHATIC: no lymphadenopathy noted Chest: COMMONS NORMALS: normal inspection of the chest and normal palpation of entire chest wall Resp: COMMON NORMALS: normal respiratory effort, No retractions, No use of accessory muscles, clear to auscultation bilaterally and percussion normal EFFORT & INSPECTION: Yes able to speak in complete sentences AUSCULTATION: clear to auscultation bilaterally PERCUSSION: percussion normal Cardio: COMMON NORMALS: no JVD, regular rate, regular rhythm, S1 normal heart sound present, S2 normal heart sound present and Peripheral pulses 2+ throughout RATE: regular rate RHYTHM: regular rhythm HEART SOUNDS: S1 normal heart sound present and S2 normal heart sound present PERIPHERAL PULSES: Peripheral pulses 2+ throughout GI: COMMON NORMALS: Normal to inspection, nondistended, normoactive bowel sounds present, Soft to palpation, non-tender and no masses INSPECTION: Yes normal to inspection PALPATION: Yes Soft to palpation OTHER: Diffuse abdominal tenderness : COMMON NORMALS: Yes no CVA tenderness BLADDER/KIDNEY EXAM: Yes no CVA tenderness Back/Pelvis: COMMON NORMALS: no CVA tenderness, thoracic and lumbar spine normal to inspection, no thoracic nor lumbar tenderness and thoraco-lumbar ROM normal Extremity: COMMON NORMALS: normal to inspection, full ROM, capillary refill normal, no joint enlargement and no pedal edema GENERAL: Yes normal exam except as noted Neuro: COMMON NORMALS: patient oriented x3, CN's II-XII intact bilaterally, moves all extremities, no focal motor deficits, no sensory deficits noted and gait normal SENSORIUM/ORIENTATION: Yes alert, Yes oriented to person, Yes oriented to place and Yes oriented to time MENINGEAL SIGNS: Yes no meningeal signs Psych: COMMON NORMALS: mental status grossly normal, Normal thought process present, cooperative, normal affect and speech normal APPEARANCE: Yes well kempt ATTITUDE: Yes calm SPEECH: Yes normal speech THOUGHT PROCESS: Normal thought process present Skin: COMMON NORMALS: no rashes or lesions noted GENERAL SKIN EXAM: no rashes or lesions noted Course Vital Signs: Vital signs: Vital Signs Temperature 97.6 F 05/18/20 12:37 Pulse Rate 76 05/18/20 12:37 Respiratory Rate 18 05/18/20 16:31 Blood Pressure 108/55 05/18/20 12:37 Pulse Oximetry 98 05/18/20 12:37 MDM - Fall MDM Narrative: Medical decision making narrative: 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 It is unknown what happened but he does have a bite mainor to his right tongue and he has urinated himself. Decades ago he had a seizure and he thinks the same has happened again. I agree with this. Imaging was negative for any acute injuries or masses. He was sent for MRI at the hospitalist request and admitted to Dr. Vyas. He had no seizures in the ER and was loaded with [employer] Lab Data: Labs: Lab Results 05/18/20 05/18/20 05/18/20 Range/Units 13:22 13:22 13:22 WBC 17.6 H (4.0-10.0) 10^3/ uL RBC 4.35 (4.1-5.3) 10^6/u L Hgb 13.9 (11.7-16.6) g/dL Hct 40.9 L (42.0-52.0) % MCV 94.0 (80-94) fL MCH 32.0 (28.0-34.0) pg MCHC 34.0 (30.0-36.0) g/dL RDW 12.2 (12.1-15.1) % Plt Count 222 (130-400) 10^3/c mm MPV 11.0 H (7.4-10.4) fL Neut % (Auto) 83.9 % Lymph % (Auto) 8.8 % [place] % (Auto) 5.5 % Eos % (Auto) 0.7 % Baso % (Auto) 0.5 % Neut # (Auto) 14.75 H (1.8-7.7) 10^3/u L Lymph # (Auto) 1.5 (0.8-4.8) 10^3/u L [place] # (Auto) 1.0 H (0.2-0.9) 10^3/u L Eos # (Auto) 0.1 (0.0-0.8) 10^3/u L Baso # (Auto) 0.1 (0.0-0.1) 10^3/u L Nucleated RBC % (a uto) 0 % Nucleated RBCs # 0.0 /100WBC Sodium 138 (136-145) mmol/L Potassium 3.8 (3.5-5.1) mmol/L Chloride 102 (98-107) mmol/L Carbon Dioxide 22 (22-29) mmol/L Anion Gap 17.8 (5-19) BUN 11 (6-20) mg/dL Creatinine 1.0 (0.7-1.2) mg/dL GFR Calculation 79.1 L (90-130) mL/min Glucose 109 (65-115) mg/dL Calculated Osmolal ity 286 (285-295) mOsm/k g Lactate 4.0 H (0.5-2.2) mmol/L Calcium 9.3 (8.5-10.5) mg/dL Total Bilirubin 0.3 (0.15-1.2) mg/dL AST 17 (0-40) U/L ALT 26 (0-41) U/L Alkaline Phosphata se 97 (40-130) IU/L Creatine Kinase 144 (39-308) U/L Troponin T Baselin e (0-15) ng/L Total Protein 6.3 L (6.6-8.7) g/dL Albumin 4.3 (3.5-5.2) g/dL Globulin 2.0 (1.3-4.6) g/dL TSH 1.27 (0.27-4.20) uIU/ mL Ethyl Alcohol < 10 (0-10) mg/dL 05/18/20 Range/Units 13:22 WBC (4.0-10.0) 10^3/ uL RBC (4.1-5.3) 10^6/u L Hgb (11.7-16.6) g/dL Hct (42.0-52.0) % MCV (80-94) fL MCH (28.0-34.0) pg MCHC (30.0-36.0) g/dL RDW (12.1-15.1) % Plt Count (130-400) 10^3/c mm MPV (7.4-10.4) fL Neut % (Auto) % Lymph % (Auto) % [place] % (Auto) % Eos % (Auto) % Baso % (Auto) % Neut # (Auto) (1.8-7.7) 10^3/u L Lymph # (Auto) (0.8-4.8) 10^3/u L [place] # (Auto) (0.2-0.9) 10^3/u L Eos # (Auto) (0.0-0.8) 10^3/u L Baso # (Auto) (0.0-0.1) 10^3/u L Nucleated RBC % (a uto) % Nucleated RBCs # /100WBC Sodium (136-145) mmol/L Potassium (3.5-5.1) mmol/L Chloride (98-107) mmol/L Carbon Dioxide (22-29) mmol/L Anion Gap (5-19) BUN (6-20) mg/dL Creatinine (0.7-1.2) mg/dL GFR Calculation (90-130) mL/min Glucose (65-115) mg/dL Calculated Osmolal ity (285-295) mOsm/k g Lactate (0.5-2.2) mmol/L Calcium (8.5-10.5) mg/dL Total Bilirubin (0.15-1.2) mg/dL AST (0-40) U/L ALT (0-41) U/L Alkaline Phosphata se (40-130) IU/L Creatine Kinase (39-308) U/L Troponin T Baselin e 12 (0-15) ng/L Total Protein (6.6-8.7) g/dL Albumin (3.5-5.2) g/dL Globulin (1.3-4.6) g/dL TSH (0.27-4.20) uIU/ mL Ethyl Alcohol (0-10) mg/dL Discharge Plan Discharge Patient Disposition: Admitted As Inpatient Admit Provider: Kaushik Vyas Clinical Impression: Seizure Condition: Stable Coding Level of Care Code 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
[2020-05-18 13:30] LABS: Basophils # 0.1 10^3/uL (0.0-0.1); Basophils % 0.5 %; Eosinophils # 0.1 10^3/uL (0.0-0.8); Eosinophils % 0.7 %; Hematocrit 40.9 % (42.0-52.0); Hemoglobin 13.9 g/dL (11.7-16.6); Lymphocytes # 1.5 10^3/uL (0.8-4.8); Lymphocytes % 8.8 %; Monocytes % 5.5 %; Neutrophils # 14.75 10^3/uL (1.8-7.7); Neutrophils % 83.9 %; Nucleated Red Blood Cells % 0 %; Platelet Count 222 10^3/cmm (130-400); Red Blood Count 4.35 10^6/uL (4.1-5.3); Red Cell Distribution Width 12.2 % (12.1-15.1); White Blood Count 17.6 10^3/uL (4.0-10.0)
[2020-05-18] MEDS: sodium chloride 0.9% 1,000 ML 999 ML IV (13:30)
[2020-05-18] MEDS: ondansetron 2 mg/ML SDV 2 mL 4 MG IVP (13:30)
--- NOTE | 2020-05-18 13:56 | MRR_ITS ---
PROCEDURE INFORMATION: Exam: MR Head Without Contrast Exam date and time: 05/18/2020 4:51 PM Age: 49 years old Clinical indication: Other: Seizure; Additional info: New onset seizure TECHNIQUE: Imaging protocol: MR of the head without contrast. COMPARISON: CT head wo con* [id number] 05/18/2020 1:14 PM FINDINGS: Brain: There is mild cerebral atrophy. No intracranial hemorrhage. No intracranial mass. No midline shift of brain. No cerebral sulcal effacement. No basilar cisternal effacement. No significant white matter lesion on FLAIR imaging. No restricted diffusion within the brain parenchyma. No abnormal susceptibility artifact within brain parenchyma. Cerebral ventricles: Normal. No ventriculomegaly. Bones/joints: Unremarkable. Paranasal sinuses: Mucosal thickening and mucous retention cyst in the right maxillary sinus. Mastoid air cells: Normal as visualized. No mastoid effusion. Orbital cavity: Unremarkable. Soft tissues: Unremarkable. Other vasculature: Intra-arterial flow voids are present. MR/MR head wo con* [id number] IMPRESSION: 1. Unremarkable MRI of the brain. 2. Negative for acute intracranial abnormality. 3. No suspicious intracranial lesion.
[2020-05-18 13:59] LABS: Troponin(5th) Baseline 12 ng/L (0-15)
[2020-05-18 14:13] LABS: Alanine Aminotransferase 26 U/L (0-41); Albumin Level 4.3 g/dL (3.5-5.2); Alcohol Level < 10 mg/dL (0-10); Alkaline Phosphatase 97 IU/L (40-130); Anion Gap 17.8 (5-19); Aspartate Amino Transferase 17 U/L (0-40); Blood Urea Nitrogen 11 mg/dL (6-20); Calcium 9.3 mg/dL (8.5-10.5); Carbon Dioxide 22 mmol/L (22-29); Chloride 102 mmol/L (98-107); Creatine Phosphokinase 144 U/L (39-308); Glomerular Filtration Rate 79.1 mL/min (90-130); Glucose 109 mg/dL (65-115); Osmolality Calculated 286 mOsm/kg (285-295); Potassium 3.8 mmol/L (3.5-5.1); Sodium 138 mmol/L (136-145); Thyroid Stimulating Hormone 1.27 uIU/mL (0.27-4.20); Total Bilirubin 0.3 mg/dL (0.15-1.2); Total Protein 6.3 g/dL (6.6-8.7)
--- NOTE | 2020-05-18 14:49 | ECG_ITS ---
[facility] Test Date: 2020-05-18 Pat Name: Twin To Department: Room: Gender: Male [employer] Work[employer]: : 1970 Requested By: Gen Mancuso Order Number: [id number] Reshma MD: Emmanuel Turner M.D. Measurements Intervals [place] Rate: 59 P: 69 MI: 139 QRS: 90 QRSD: 105 T: 71 QT: 445 QTc: 444 Interpretive Statements SINUS BRADYCARDIA WITH SINUS ARRHYTHMIA Compared to ECG 03/07/2020 15:52:43 Sinus rhythm no longer present T-wave abnormality no longer present Electronically Signed On 05-19-2020 19:32:36 CALENDER LET OFF OPERATOR by Emmanuel Turner M.D. [id number]
--- NOTE | 2020-05-18 15:06 | PC.NURSE ---
Patient reports pain in tongue
[2020-05-18] MEDS: ketorolac 30 mg/mL INJ 15 MG IVP (15:31)
--- NOTE | 2020-05-18 15:34 | PC.NURSE ---
EKG done at 1530 and shown to ER doctor
[2020-05-18 15:35] LABS: Add Urine Microscopic? NO
--- NOTE | 2020-05-18 16:03 | PM.HP ---
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 Patient does not recall any preceding lightheadedness dizziness or heart palpitations. He denies any pain except he bit his tongue on the right and it is quite painful. In ER he had CT scan of the head cervical spine and abdomen pelvis and chest without significant findings. Upon further questioning patient reports that around 1 AM when he was taking a shower he had dull 4 out of 10 left precordial nonradiating chest pain with no alleviating or aggravating factors. Patient denied any associated nausea, shortness of breath or diaphoresis. Reports that pain lasted approximately 1 hour and gradually improved after he took rest. Denies any previous similar pain. His medical history is important for coronary angiogram in March last year requiring stent placement into his LAD for 80% stenosis. Patient continues to smoke 2 packs a day he denies. History of diabetes. He denies paroxysmal nocturnal dyspnea, orthopnea or lower extremity swelling. Denies drinking alcohol or using illicit drugs. He did have previous history of seizures and was treated with Dilantin more than 10 years ago. Review of Systems Const: Denies: fever(s) or chills Eyes: Denies: change in vision ENMT: Denies: throat pain or change in hearing Card: Reports: chest pain (Left side/ribs pain after he fell. As well as chest pain this morning); Denies: edema or lightheadedness Resp: Denies: dyspnea or productive cough GI: Denies: abdominal pain, nausea, vomiting, dysphagia, diarrhea, constipation, hematochezia or melena : Denies: difficulty urinating or dysuria Musc: Denies: joint pain or joint swelling Skin/Breast: Denies: rash or erythema Neuro: Denies: headache(s) or weakness in extremities Psych: Denies: depression or suicidal ideation Endo: Denies: excessive sweating [place]/Lymph: Denies: easy bleeding or tender lymph nodes All/Imm: Denies: throat swelling Medications/Allergies Home Medications Medication Instructions Recorded Confirmed Last Taken Type albuterol sulfate [Ventolin HFA] 2 inh INHALATION Q6H PRN #8.5 g 03/10/20 05/18/20 05/17/20 Rx ipratropium-albuterol [Combivent 1 puff INHALATION Q6H #4 g 03/10/20 05/18/20 Unknown Rx Respimat] nicotine 1 patch TRANSDERMAL DAILY #30 ea 03/10/20 05/18/20 Unknown Rx aspirin [Adult Aspirin Regimen] 81 mg PO DAILY@109905/18/20 05/18/20 05/18/20 History atorvastatin 40 mg PO DAILY@109905/18/20 05/18/20 05/18/20 History clopidogrel 75 mg PO DAILY@109905/18/20 05/18/20 05/18/20 History lisinopril 5 mg PO DAILY@109905/18/20 05/18/20 05/18/20 History metoprolol succinate 12.5 mg PO DAILY@109905/18/20 05/18/20 05/18/20 History Allergies Allergy/AdvReac Type Severity Reaction Status Date / Time meperidine [From Demerol] Allergy ALGY-Rash Verified 04/12/20 12:49 PFSH Acute PFSH: Medical History Acute non-ST elevation myocardial infarction (NSTEMI) Atherosclerotic heart disease [place] coronary artery w/angina pectoris Bradycardia COPD (chronic obstructive pulmonary disease) Current smoker Dyslipidemia (high LDL; low HDL) Elevated blood pressure reading Surgical History Amputation finger traumatic, with surgical reattachment of both index fingers History of ankle surgery Previous back surgery Coccyx Family History Father CAD (coronary artery disease) of massive [place] in his 40s Diabetes Stroke Mother Cancer Lung cancer Lung disease Denies family history of Clotting disorder Dementia Chronic kidney disease (CKD) Suicide Anesthesia complication Bleeding disorder Social History Smoking and tobacco status: heavy tobacco smoker cigarettes Packs smoked per day: 1.5 [ Other cigarette details: Previously up to 4ppd, then 2, now down to 1 ] Alcohol intake: never Substance/Drug Use: never Lives independently: Yes Household members: spouse Marital status: Current occupational status: employed Vitals/I&O/Wt Last Vital Signs Temp 97.6 F 05/18/20 12:37 Pulse 76 05/18/20 12:37 Resp 15 05/18/20 12:37 BP 108/55 05/18/20 12:37 Pulse Ox 98 05/18/20 12:37 05/18/20 05/18/20 05/18/20 06:59 14:59 22:59 Intake Total 13.5 / 13.5 1000 / 1013.5 Balance 13.5 / 13.5 1000 / 1013.5 Weight last 48 hrs Weight 104.326 kg Physical Exam Const: COMMON NORMALS: no acute distress, patient oriented x3 and alert HENMT: COMMON NORMALS: normocephalic and atraumatic HEAD & SCALP: normocephalic and atraumatic Eye: COMMON NORMALS: EOMs intact bilaterally, conjunctivae normal and no scleral icterus CONJUNCTIVA: Yes conjunctivae normal Neck/C-Spine: COMMON NORMALS: no lymphadenopathy and no meningeal signs Lymph: LYMPHATIC: no lymphadenopathy noted Chest: OTHER: Left chest around T4 axillary line pain to palpation Resp: COMMON NORMALS: No use of accessory muscles and clear to auscultation bilaterally AUSCULTATION: clear to auscultation bilaterally Cardio: COMMON NORMALS: regular rate, regular rhythm and No murmurs present (Cardio) RATE: regular rate RHYTHM: regular rhythm OTHER: No lower extremity edema GI: COMMON NORMALS: Soft to palpation and non-tender PALPATION: Yes Soft to palpation RECTAL EXAM: Yes deferred : COMMON NORMALS: Yes no CVA tenderness BLADDER/KIDNEY EXAM: Yes no CVA tenderness Back/Pelvis: COMMON NORMALS: no CVA tenderness and thoracic and lumbar spine normal to inspection Extremity: COMMON NORMALS: normal to inspection and capillary refill normal Neuro: COMMON NORMALS: patient oriented x3 and no focal motor deficits SENSORIUM/ORIENTATION: Yes alert MENINGEAL SIGNS: Yes no meningeal signs Psych: COMMON NORMALS: mental status grossly normal, Normal thought process present and cooperative THOUGHT PROCESS: Normal thought process present Skin: COMMON NORMALS: no rashes or lesions noted GENERAL SKIN EXAM: no rashes or lesions noted Data : 05/18/20 13:22 05/18/20 13:22 A&P Assessment and plan (1) Episode of syncope: Concerning for episode of seizure versus cardiac arrhythmia Status: Acute (2) HTN (hypertension): Status: Acute Qualifiers: Hypertension type: essential hypertension Qualified Code(s): I10 - Essential (primary) hypertension (3) Current smoker: Status: Acute (4) Obesity (BMI 30.0-34.9): Status: Acute (5) Chest pain: 2 different pains. Patient had earlier this morning pain which is concerning to be cardiac in origin. Left side pain is concerning for rib fracture. Status: Acute (6) COPD (chronic obstructive pulmonary disease): Not in exacerbation. Status: Acute (7) Dyslipidemia (high LDL; low HDL): Status: Acute Additional A&P Information PLAN: Patient will be admitted and closely monitored. Obtain rib series on the left. Awaiting MRI. Continue Keppra for now. Trend cardiac enzymes. Will discuss with Dr. Turner who will see patient in consultation. Attestations Medical Necessity Statement*: Patient with syncopal episode and concerning signs and symptoms for underlying clinically significant coronary artery disease potentially leading to cardiac arrhythmia requires close inpatient monitoring, evaluation and treatment. I expect patient will require more than 2 midnights. Time Spent in Patient Care: Greater than 35 minutes Coding Level of Care Code Acute Retail Link Analyst for [facility] Fwd Diagnoses Episode of syncope R55 HTN (hypertension) I10 Hypertension type: essential hypertension Current smoker F17.200 Obesity (BMI 30.0-34.9) E66.9 Chest pain R07.9 COPD (chronic obstructive pulmonary disease) J44.9 Dyslipidemia (high LDL; low HDL) E78.5
--- NOTE | 2020-05-18 16:06 | XRR_ITS ---
PROCEDURE INFORMATION: Exam: XR Left Ribs Exam date and time: 05/18/2020 4:36 PM Age: 49 years old Clinical indication: Injury or trauma; Fall; Rib area, left side; Blunt trauma; Additional info: Pain post fall TECHNIQUE: Imaging protocol: XR Left ribs. Views: 2 views. COMPARISON: CR XR chest 1V portable [id number] 03/07/2020 10:02 AM FINDINGS: Bones/joints: Normal. Soft tissues: Normal. XR/XR ribs LT 2V* [id number] IMPRESSION: No acute findings.
[2020-05-18 16:25] LABS: Troponin 5 2HR 34.34 ng/L (0-15)
[2020-05-18 16:28] LABS: Amphetamines Screen Urine Negative (Negative); Barbiturates Screen Urine Negative (Negative); Benzodiazepines Screen Urine Negative (Negative); Cocaine Screen Urine Negative (Negative); Opiate Screen Urine Negative (Negative); PCP Screen Urine Negative (Negative); THC Screen Urine Negative (Negative)
[2020-05-18 16:32] LABS: Troponin 5 2HR Delta 22.34 ABS# (0-10)
[2020-05-18 17:03] LABS: Bilirubin Urine Neg (Negative); Blood Urine Neg (Negative); Glucose Urine UA Norm (Normal); Ketones Urine Negative (Negative); Leukocyte Esterase Urine Negative (Negative); Nitrate Urine Negative (Negative); Protein Urine Neg (Negative); Urine Appearance Clear (CLEAR); Urine Color Yellow (Yellow); Urobilinogen Urine Norm (Negative); pH Urine 7 (5-7)
[2020-05-18] MEDS: levETIRAcetam 500 mg Tablet PO (18:04)
[2020-05-18] MEDS: lactated ringers 1,000 ML 50 ML IV (18:06)
[2020-05-18] MEDS: enoxaparin 40 mg/0.4 mL Syringe SUBCUT (18:12)
--- NOTE | 2020-05-18 18:19 | P.CONIM_ITS ---
Providers/Reason For Consult Consulting Physican/Specialty*: SEKOU Turner MD/cardiology Reason for Consult*: Patient with a history of coronary artery disease, status post PCI, presenting with syncope and chest pain Attending Physician: Kaushik Vyas MD History of Present Illness History of Present Illness Twin To is a 49 year old male who is admitted to hospital through the emergency room, where he presented with complaints of an episode of syncope. He has a history of coronary artery disease and recent myocardial infarction. He was found to have elevated troponin T with a delta of 24 in 2 hours. Cardiology consult is requested for further cardiac evaluation recommendations. This patient was admitted to the hospital March of last year with the features of a non-ST relation myocardial infarction. His cardiac colorization revealed a high-grade lesion in the LAD with total occlusion of the right coronary artery. Circumflex artery had mild disease. He had a fairly good right left collaterals. He underwent PCI of the LAD lesion. Since then, he has been doing okay with no significant cardiac symptoms. 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 This morning, he was helping to unload the truck for a local business. He was apparently sitting in the docking station, out in the cold for a while. Hematuria felt weird for few seconds and then completely passed out. The next thing he knew was the ambulance crew around him trying to get him off the floor to the ambulance. He did not have any chest pain prior to this event or following this event. No palpitation. No fever or chills. No cough or any other specific complaints. Did not have any bowel or bladder incontinence. Around 3:00 yesterday afternoon, he started having some pressure-like feeling in the chest confined to the left mammary region. It was persistent for 3 to 4 hours. He went to sleep with this and as he woke up this morning, did not have any chest pain. During my examination, he was complaining of some vague feeling in the chest in a very small area. He does not seem to image concerned about this. When he came with a myocardial infarction in March, the symptoms were totally different. He has been compliant with medications. 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 The last documented episode of seizure was approximately 10 years ago. He has a strong family history for premature atherosclerotic heart disease. His father, at age of 42 had a massive heart attack and of the same. His elder brother had 2 heart attacks. Details are not available. Patient is a heavy smoker. He used to smoke 4 pack a day for 30 years or so. He started cutting down on this 4 years ago. Currently he smokes half to 1 pack a day. Review of Systems Narrative: CONSTITUTIONAL: No fever or chills. EYES: No blurring of vision or other visual disturbances lately. ENT: No hoarseness of voice, auditory disturbances or sore throat. CARDIOVASCULAR: As mentioned above. RESPIRATORY: No significant cough. GASTROINTESTINAL: No hematemesis or melena. GENITOURINARY: No dysuria or hematuria. INTEGUMENTARY: No skin rashes or history of skin cancer. NEURO: Episode of syncope as mentioned above PSYCHIATRIC: No history of psychosis or major depression. HEMATOLOGIC: No bleeding disorders or significant anemia. ENDOCRINE: No history of polyuria or polydipsia. MUSCULOSKELETAL: No recent joint pain or swelling. ALLERGY/IMMUNOLOGY: As mentioned above. Meds/Allergies Home Medications and Allergies Home Medications Medication Instructions Recorded Confirmed Last Taken Type albuterol sulfate [Ventolin HFA] 2 inh INHALATION Q6H PRN #8.5 g 03/10/20 05/18/20 05/17/20 Rx ipratropium-albuterol [Combivent 1 puff INHALATION Q6H #4 g 03/10/20 05/18/20 Unknown Rx Respimat] nicotine 1 patch TRANSDERMAL DAILY #30 ea 03/10/20 05/18/20 Unknown Rx aspirin [Adult Aspirin Regimen] 81 mg PO DAILY@109905/18/20 05/18/20 05/18/20 History atorvastatin 40 mg PO DAILY@109905/18/20 05/18/20 05/18/20 History clopidogrel 75 mg PO DAILY@109905/18/20 05/18/20 05/18/20 History lisinopril 5 mg PO DAILY@109905/18/20 05/18/20 05/18/20 History metoprolol succinate 12.5 mg PO DAILY@109905/18/20 05/18/20 05/18/20 History Allergies Allergy/AdvReac Type Severity Reaction Status Date / Time meperidine [From Demerol] Allergy ALGY-Rash Verified 04/12/20 12:49 Current Medications Current Medications Generic Name Dose Route Start Last Admin Trade Name Freq PRN Reason Stop Dose Admin Enoxaparin Sodium 40 mg 05/18/20 18:30 05/18/20 18:12 Enoxaparin 40 Mg/0.4 Ml Syringe SUBCUT 40 mg Q24H NITISH Administration Lactated Ringer's 1,000 mls @ 50 mls/hr 05/18/20 17:48 05/18/20 18:06 Lactated Ringers IV 50 mls/hr .Q20H NITISH Administration Levetiracetam 500 mg 05/18/20 18:00 05/18/20 18:04 Levetiracetam 500 Mg Tablet PO 500 mg BID NITISH Administration PFSH Acute PFSH: Medical History Acute non-ST elevation myocardial infarction (NSTEMI) Atherosclerotic heart disease [place] coronary artery w/angina pectoris Bradycardia COPD (chronic obstructive pulmonary disease) Current smoker Dyslipidemia (high LDL; low HDL) Elevated blood pressure reading Surgical History Amputation finger traumatic, with surgical reattachment of both index fingers History of ankle surgery Previous back surgery Coccyx Family History Father CAD (coronary artery disease) of massive ID in his 40s Diabetes Stroke Mother Cancer Lung cancer Lung disease Denies family history of Clotting disorder Dementia Chronic kidney disease (CKD) Suicide Anesthesia complication Bleeding disorder Social History Smoking and tobacco status: heavy tobacco smoker cigarettes Packs smoked per day: 1.5 [ Other cigarette details: Previously up to 4ppd, then 2, now down to 1 ] Alcohol intake: never Substance/Drug Use: never Lives independently: Yes Household members: spouse Marital status: Current occupational status: employed Vitals/I&O/Wt Last Vital Signs Temp 97.6 F 05/18/20 12:37 Pulse 88 05/18/20 18:14 Resp 18 05/18/20 16:31 BP 108/55 05/18/20 12:37 Pulse Ox 98 05/18/20 12:37 05/18/20 05/18/20 05/18/20 06:59 14:59 22:59 Intake Total 13.5 / 13.5 1110 / 1123.5 Balance 13.5 / 13.5 1110 / 1123.5 Weight last 48 hrs Weight 230 lb Physical Exam Narrative: EXAM NARRATIVE: GENERAL: The patient is alert and oriented times three. Not in any acute distress. HEENT: No significant pallor, icterus or lymphadenopathy. The pupils are reac tant to light. Oral cavity: There are no mucous membrane lesions. Funduscopic examination: The fundus is not visualized NECK: Trachea appears to be central. No masses noted. No JVD or thyromegaly appr eciated. No carotid bruit. RESPIRATORY: Chest is symmetrical. No intercostals muscle retraction or any accessory muscle activation. There is no chest wall tenderness. Breath sounds are heard bilaterally. No rales or rhonchi heard. No evidence of any consolidation. BREASTS: Deferred. HEART: The heart sounds are normal no S3-S4. No significant murmurs. No pericardial rub. ABDOMEN: No vessel pulsations or distention. No tenderness. No organomegaly appreciated. No abdominal bruit. Bowel sounds are normally heard. : Deferred. RECTAL: Deferred. LYMPHATIC: No lymphadenopathy noted in the neck or groin. EXTREMITIES: No edema or cyanosis. No clubbing. The pulses are symmetrical bilaterally. MUSCULOSKELETAL: No acute joint deformities or swelling SKIN: Extensive tattoo markings especially in the upper extremities NEUROPSYCHIATRIC: The patient is alert and oriented x3. Appears to be in a good mood. The higher functions are grossly within normal limits. No tremors or rigidity noted. Data Labs: Other Labs: Laboratory Last Values WBC 17.6 10^3/uL (4.0 -10.0) H 05/18/20 13:22 RBC 4.35 10^6/uL (4.1 -5.3) 05/18/20 13:22 Hgb 13.9 g/dL (11.7-1 6.6) 05/18/20 13:22 Hct 40.9 % (42.0-52.0 ) L 05/18/20 13:22 MCV 94.0 fL (80-94) 05/18/20 13:22 MCH 32.0 pg (28.0-34. 0) 05/18/20 13:22 MCHC 34.0 g/dL (30.0-3 6.0) 05/18/20 13:22 RDW 12.2 % (12.1-15.1 ) 05/18/20 13:22 Plt Count 222 10^3/cmm (130 -400) 05/18/20 13:22 MPV 11.0 fL (7.4-10.4 ) H 05/18/20 13:22 Neut % (Auto) 83.9 % 05/18/20 13:22 Lymph % (Auto) 8.8 % 05/18/20 13:22 [place] % (Auto) 5.5 % 05/18/20 13:22 Eos % (Auto) 0.7 % 05/18/20 13:22 Baso % (Auto) 0.5 % 05/18/20 13:22 Neut # (Auto) 14.75 10^3/uL (1. 8-7.7) H 05/18/20 13:22 Lymph # (Auto) 1.5 10^3/uL (0.8- 4.8) 05/18/20 13:22 [place] # (Auto) 1.0 10^3/uL (0.2- 0.9) H 05/18/20 13:22 Eos # (Auto) 0.1 10^3/uL (0.0- 0.8) 05/18/20 13:22 Baso # (Auto) 0.1 10^3/uL (0.0- 0.1) 05/18/20 13:22 Nucleated RBC % (a uto) 0 % 05/18/20 13:22 Nucleated RBCs # 0.0 /100WBC 05/18/20 13:22 Sodium 138 mmol/L (136-1 45) 05/18/20 13:22 Potassium 3.8 mmol/L (3.5-5 .1) 05/18/20 13:22 Chloride 102 mmol/L (98-10 7) 05/18/20 13:22 Carbon Dioxide 22 mmol/L (22-29) 05/18/20 13:22 Anion Gap 17.8 (5-19) 05/18/20 13:22 BUN 11 mg/dL (6-20) 05/18/20 13:22 Creatinine 1.0 mg/dL (0.7-1. 2) 05/18/20 13:22 GFR Calculation 79.1 mL/min (90-1 30) L 05/18/20 13:22 Glucose 109 mg/dL (65-115 ) 05/18/20 13:22 Calculated Osmolal ity 286 mOsm/kg (285- 295) 05/18/20 13:22 Lactate 4.0 mmol/L (0.5-2 .2) H 05/18/20 13:22 Calcium 9.3 mg/dL (8.5-10 .5) 05/18/20 13:22 Total Bilirubin 0.3 mg/dL (0.15-1 .2) 05/18/20 13:22 AST 17 U/L (0-40) 05/18/20 13:22 ALT 26 U/L (0-41) 05/18/20 13:22 Alkaline Phosphata se 97 IU/L (40-130) 05/18/20 13:22 Creatine Kinase 144 U/L (39-308) 05/18/20 13:22 Troponin T Baselin e 12 ng/L (0-15) 05/18/20 13:22 Troponin T 120 Min erasmo 34.34 ng/L (0-15) H 05/18/20 15:30 Delta Troponin T 22.34 ABS# (0-10) H* 05/18/20 15:30 Total Protein 6.3 g/dL (6.6-8.7 ) L 05/18/20 13:22 Albumin 4.3 g/dL (3.5-5.2 ) 05/18/20 13:22 Globulin 2.0 g/dL (1.3-4.6 ) 05/18/20 13:22 TSH 1.27 uIU/mL (0.27 -4.20) 05/18/20 13:22 Urine Color Yellow (Yellow) 05/18/20 15:03 Urine Appearance Clear (CLEAR) 05/18/20 15:03 Urine pH 7 (5-7) 05/18/20 15:03 Ur Specific Gravit y 1.010 (1.005-1.0 30) 05/18/20 15:03 Urine Protein Neg (Negative) 05/18/20 15:03 Urine Glucose (UA) Norm (Normal) 05/18/20 15:03 Urine Ketones Negative (Negati ve) 05/18/20 15:03 Urine Blood Neg (Negative) 05/18/20 15:03 Urine Nitrate Negative (Negati ve) 05/18/20 15:03 Urine Bilirubin Neg (Negative) 05/18/20 15:03 Urine Urobilinogen Norm mg/dL (Negat luis) 05/18/20 15:03 Ur Leukocyte Larisa ase Negative (Negati ve) 05/18/20 15:03 Urine Opiates Scre en Negative ng/mL (N egative) 05/18/20 15:03 Ur Barbiturates Sc reen Negative ng/mL (N egative) 05/18/20 15:03 Ur Phencyclidine S crn Negative ng/mL (N egative) 05/18/20 15:03 Ur Amphetamines Sc reen Negative ng/mL (N egative) 05/18/20 15:03 U Benzodiazepines Scrn Negative ng/mL (N egative) 05/18/20 15:03 Urine Cocaine Scre en Negative ng/mL (N egative) 05/18/20 15:03 U Marijuana (THC) Screen Negative ng/mL (N egative) 05/18/20 15:03 Ethyl Alcohol < 10 mg/dL (0-10) 05/18/20 13:22 Imaging^: Cardiac catheterization report: My impression: March 09, 2020 * Coronary angiography shows right dominance. * The left main is a medium caliber vessel with no significant stenotic lesion. * The left anterior descending artery is a medium caliber vessel which appears to wrap around the LV apex . After giving off a large septal varnisher branch, the artery was found to have a high-grade stenosis of around 80 to 90%. The distal artery was found to have mild diffuse intimal irregularities. The first diagonal branch also was found to have minimal intimal irregularities with no significant stenotic lesions. The second diagonal branch was found to be a medium to large caliber tortuous vessel withmild diffuse intimal irregularities. * The left circumflex artery is a small to medium caliber non dominant vessel which also was found to have mild diffuse disease. Rzsq-wa-[id number] collaterals were noted filling up the PDA and the PLV branch of the right coronary artery. * Right coronary artery is a medium caliber vessel which appears to be totally occluded after giving of the AV lou branch. Echo: My impression: Echocardiogram on March 07, 2020 revealed LV systolic function is normal with EF of 50 to 55%. No regional wall motion abnormalities are noted. Normal diastolic function. No significant valvular heart disease is present. No comparison studies are available. EKG^: EKG 1: My Interpretation: The EKG from today revealed sinus bradycardia with a rate of 59 bpm. Sinus arrhythmia present. No acute ST-T changes. A&P Assessment and plan (1) Episode of syncope: Etiology of the syncope is unclear at this time. Possibility of a cardiac arrhythmia, coronary ischemia or seizure disorder are considerations. The EKG is unremarkable. Since he had stenting of the LAD in March chance of a stent occlusion may be very low. The right coronary artery was totally occluded with a minimal disease in the circumflex artery. He may be closely monitored on tele metry. We may go ahead and do a limited 2D echocardiogram in the morning to rule out any other pathology. Status: Acute Qualifiers: Syncope type: unspecified Qualified Code(s): R55 - Syncope and collapse (2) Elevated troponin: As mentioned above. From a cardiac arrhythmia causing the elevated troponin T also is a consideration. He may be treated with therapeutic dose of Lovenox, if there is no contraindication. Status: Acute (3) Atherosclerotic heart disease [place] coronary artery w/angina pectoris: If there is no document arrhythmia, seizure activity, we may consider doing a myocardial perfusion imaging, to further evaluate his coronary status. Status: Acute Qualifiers: [place] vs. transplanted heart: [place] heart Qualified Code(s): I25.119 - Atherosclerotic heart disease of [place] coronary artery with unspecified angina pectoris (4) Dyslipidemia (high LDL; low HDL): Continue on the current medications. Status: Acute (5) Sleep apnea: Patient may continue the CPAP. Status: Acute Qualifiers: Sleep apnea type: other type Qualified Code(s): G47.39 - Other sleep apnea (6) Benign essential HTN: Currently the blood pressure is in the normal range. May continue on the current medications. Status: Acute Additional A&P Information Based on the clinical progress on the results of the above, further management decisions will be made. 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 transplanted heart: [place] heart Dyslipidemia (high LDL; low HDL) E78.5 Sleep apnea G47.39 Sleep apnea type: other type Benign essential HTN I10
--- NOTE | 2020-05-18 18:50 | PC.NURSE ---
Patient to CSU from ER. Patient A&Ox4, VSS. Patient reports pain 4/10 to tongue. Patient oriented to room and call light. Seizure precautions implemented. No needs identified at this time. Nurse to continue to monitor.
[2020-05-18] MEDS: enoxaparin 60 mg/0.6 mL Syringe SUBCUT (19:17)
[2020-05-19 03:50] VITALS: BP 119/63; PULSE 67; RESP 15; TEMP 37.6; O2SAT 92
[2020-05-19 05:21] VITALS: PULSE 58
[2020-05-19 05:35] LABS: Basophils # 0.1 10^3/uL (0.0-0.1); Basophils % 0.5 %; Eosinophils # 0.2 10^3/uL (0.0-0.8); Eosinophils % 1.2 %; Hematocrit 41.4 % (42.0-52.0); Hemoglobin 13.8 g/dL (11.7-16.6); Lymphocytes # 2.8 10^3/uL (0.8-4.8); Lymphocytes % 22.1 %; Mean Corpuscular HGB Conc 33.3 g/dL (30.0-36.0); Mean Corpuscular Hemoglobin 31.7 pg (28.0-34.0); Mean Corpuscular Volume 95.2 fL (80-94); Mean Platelet Volume 11.6 fL (7.4-10.4); Monocytes # 1.2 10^3/uL (0.2-0.9); Monocytes % 9.1 %; Neutrophils # 8.56 10^3/uL (1.8-7.7); Neutrophils % 66.9 %; Nucleated Red Blood Cells % 0 %; Platelet Count 227 10^3/cmm (130-400); Red Blood Count 4.35 10^6/uL (4.1-5.3); Red Cell Distribution Width 12.4 % (12.1-15.1); White Blood Count 12.8 10^3/uL (4.0-10.0)
[2020-05-19 06:03] LABS: Alanine Aminotransferase 22 U/L (0-41); Albumin Level 3.7 g/dL (3.5-5.2); Aspartate Amino Transferase 19 U/L (0-40); Blood Urea Nitrogen 12 mg/dL (6-20); Calcium 8.9 mg/dL (8.5-10.5); Carbon Dioxide 25 mmol/L (22-29); Chloride 107 mmol/L (98-107); Chol HDL Ratio 3.35 mg/dL (1.0-5.00); Cholesterol 114 mg/dL (0-200); Globulin 2.4 g/dL (1.3-4.6); Glomerular Filtration Rate 79.1 mL/min (90-130); Glucose 86 mg/dL (65-115); HDL Cholesterol 34 mg/dL (60-100); Magnesium 2.3 mg/dL (1.7-2.3); NT Pro B Type Natriuretic Pept 303 pg/mL (0-125); Osmolality Calculated 287 mOsm/kg (285-295); Sodium 139 mmol/L (136-145); Total Bilirubin 0.6 mg/dL (0.15-1.2); Total Protein 6.1 g/dL (6.6-8.7); Triglycerides 114 mg/dL (0-150)
[2020-05-19 06:04] LABS: Alkaline Phosphatase 96 IU/L (40-130); LDL Cholesterol Calculated 57 mg/dL (50-129); LDL HDL Ratio 1.68 RATIO (0.00-3.22); Thyroid Stimulating Hormone 0.52 uIU/mL (0.27-4.20)
[2020-05-19] MEDS: enoxaparin 100 mg/mL Syringe SUBCUT (06:15)
[2020-05-19 06:17] LABS: Estmated Average Glucose 105; Hemoglobin A1C 5.3 % (4.0-6.0)
--- NOTE | 2020-05-19 06:17 | PC.NURSE ---
Noted patient to have low heart rate during sleep dropping to low 50s. Patient denies any discomforts presently. No distress observed. Lovenox given as ordered.
[2020-05-19 07:57] VITALS: BP 113/50; PULSE 57; RESP 22; TEMP 36.5; O2SAT 91
[2020-05-19] MEDS: levETIRAcetam 500 mg Tablet PO (08:24)
[2020-05-19] MEDS: pantoprazole DR 40 mg Tablet PO (08:24)
[2020-05-19] MEDS: nicotine 21 mg Patch 1 PATCH TRANSDERMA (08:25)
--- NOTE | 2020-05-19 10:49 | PM.PN ---
Subjective Subjective: Interval history: Patient was diagnosed with non-ST elevation ND yesterday and was started on therapeutic anticoagulation with Lovenox. This morning patient denies shortness of breath or chest pain. Continues to have swollen tongue and difficulty swallowing pills. His MRI without significant findings. Vitals/I&O/Wt Last Vital Signs Temp 97.7 F 05/19/20 07:57 Pulse 57 L 05/19/20 07:57 Resp 22 H 05/19/20 07:57 BP 113/50 05/19/20 07:57 Pulse Ox 91 05/19/20 07:57 05/18/20 05/19/20 05/19/20 22:59 06:59 14:59 Intake Total 1350 / 1363.5 Output Total 550 / 550 325 / 325 Balance 1350 / 1363.5 -550 / 813.5 -325 / -325 Weight last 48 hrs Weight 104.326 kg Physical Exam Narrative: EXAM NARRATIVE: Clear lungs and regular heart. No lower extremity edema. Data : 05/19/20 04:42 05/19/20 04:42 A&P Assessment and plan (1) Episode of syncope: Appears to be related to cardiac arrhythmia. Status: Acute Qualifiers: Syncope type: unspecified Qualified Code(s): R55 - Syncope and collapse (2) HTN (hypertension): Status: Acute Qualifiers: Hypertension type: essential hypertension Qualified Code(s): I10 - Essential (primary) hypertension (3) Current smoker: Status: Acute (4) Obesity (BMI 30.0-34.9): Status: Acute (5) Chest pain: 2 different pains. Patient had earlier this morning pain which is concerning to be cardiac in origin. Left side pain is concerning for rib fracture. Status: Acute (6) COPD (chronic obstructive pulmonary disease): Not in exacerbation. Status: Acute (7) Dyslipidemia (high LDL; low HDL): Status: Acute (8) Non-ST elevation ND (NSTEMI): Present on admission. Type II secondary to highly suspected cardiac arrhythmia versus type I Status: Acute Additional A&P Information PLAN: Continue current monitoring and treatment. Appreciate Dr. Turner's help. I think given patient's concerning presentation we will continue monitoring and perform sestamibi Lexiscan in a.m. Continue monitoring on telemetry. Attestations Medical Necessity Statement*: Patient with non-ST elevation ND and highly suspected cardiac arrhythmia requires close inpatient monitoring and treatment. 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
[2020-05-19] MEDS: metoprolol succinate ER (24 HR) 25 mg Tablet 12.5 MG PO (11:31)
[2020-05-19] MEDS: atorvastatin 40 mg Tablet PO (11:31)
[2020-05-19] MEDS: lisinopril 5 mg Tablet PO (11:31)
[2020-05-19] MEDS: aspirin 81 mg EC Tablet PO (11:31)
[2020-05-19] MEDS: clopidogrel 75 mg Tablet PO (11:31)
[2020-05-19 11:41] VITALS: BP 141/88; PULSE 71; RESP 17; TEMP 36.1; O2SAT 95
--- NOTE | 2020-05-19 12:22 | PC.CHAP ---
Pastoral Care Encounter/Spiritual Assessment Type of Contact [] Declined stopper grinder visit [] Patient/Family/Request visit [] Outpatient visit [] Follow-up visit [] Physician referral [] Code/Alert [XX] Routine visit [] Staff referral [] Actively dying [] Patient sleeping [] Family support [] [] Out of room [] Palliative care [] [] Receiving care in room [] Pre-surgical visit [] Trauma [] Long length of stay [] ICU visit [] Other: Relational/Emotional Strength [XX] Patient feels connected with others/family/visitors/staff [] Distress [] Loneliness/isolation [] Abandonment Spirituality of Patient [XX] Person of [place] [] Attends Buddhist of their [place] [] Believes in Prayer [] Reads Bible or Sabianism materials [] There are Spiritual issues to be addressed Medical Billing Associate Interventions [] Prayer [XX] Active listening [XX] Non-anxious presence [] Spiritual/emotional support [] Crisis/trauma care [] Spiritual counseling [] Bereavement support [] Provided bereavement packet [] Provided Bible/devotional materials [] Provided toy/stuffed animal, coloring book to patient or family member [] Provided Communion [] Anointing/[place] [] Salvation [] Completed spiritual assessment [] Other: Impact on Illness or Injury [] Angry [] Fearful [] Anxious [] Often cries [] Exhaustion [] Unable to work [] Unable to attend advent [] Unable to walk/stand [] Unable to read [] Unable to drive [] Unable to eat/drink [] Unable to sleep [] Unable to be with family [] Patient intubated [] Other: Summary: Spiritual assessment incomplete. Pt's was in the room looking for his keys, and they were distracted by that. 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 Pt declined prayer. Time spent with patient: 5 mins
--- NOTE | 2020-05-19 13:58 | P.DS_ITS ---
Discharge Providers Date of Admission: 05/18/20 14:48 Date of Discharge: May 19, 2020 Attending Provider at Admission: Kaushik Vyas MD Attending Provider at Discharge: Kaushik Vyas MD Diagnoses at Discharge Discharge Diagnosis (1) Episode of syncope: Status: Acute Qualifiers: Syncope type: unspecified Qualified Code(s): R55 - Syncope and collapse (2) HTN (hypertension): Status: Acute Qualifiers: Hypertension type: essential hypertension Qualified Code(s): I10 - Essential (primary) hypertension (3) Current smoker: Status: Acute (4) Obesity (BMI 30.0-34.9): Status: Acute (5) Chest pain: Status: Acute (6) COPD (chronic obstructive pulmonary disease): Status: Acute (7) Dyslipidemia (high LDL; low HDL): Status: Acute (8) Non-ST elevation OH (NSTEMI): Status: Acute Reason for Visit Reason for Visit: FALL/ SEIZURE Hospital Course Hospital Course Patient presented with syncopal episode with highly suspected cardiac arrhythmia preceding. Patient had episode of chest pain early that morning and diagnosed with non-ST elevation OH. Patient bit his tongue which felt to be related to fall. Acute episode of seizure felt highly unlikely. Patient's MRI showed no significant findings. This morning patient reports feeling much better and adamantly wants to go home understanding that he may have another episode of cardiac arrhythmia which may result in significant morbidity/disability and even mortality. This morning patient denied any shortness of breath or chest pain. Patient was seen by Dr. Turner who is okay for patient to be dismissed home with outpatient fatumatanyyusra Patean and event monitor scheduled early next week. Dr. Turner wants to see patient in 3 weeks and appointment will be requested. Patient was told to present back should his condition worsen. Physical Exam Narrative: EXAM NARRATIVE: As per my note earlier this morning. Discharge Data Data Completed and Pending: Completed Studies During Hospitalization Category Date Time Status CT abdomen pelvis wo con 42007 Urge nt Cat Scan 05/18/20 12:[address] cervical spin wo con* [id number] Stat Cat Scan 05/18/20 12:[address] head wo con* 7 0450 Urgent Cat Scan 05/18/20 12:44 Completed XR ribs LT 2V* 71 100 Routine Exams 05/18/20 16:06 Completed MR head wo con* 7 0551 Stat MRI 05/18/20 13:56 Completed CV echo limited 9 3303 Routine Ultrasound 05/19/20 19:12 Completed Pending at discharge Category Date Time Status Complete Blood Co unt w/Auto AM LABS Lab 05/20/20 04:00 Ordered Complete Blood Co unt w/Auto AM LABS Lab 05/21/20 04:00 Ordered Comprehensive Met abolic Panel AM LA BS Lab 05/20/20 04:00 Ordered Comprehensive Met abolic Panel AM LA BS Lab 05/21/20 04:00 Ordered Magnesium AM LABS Lab 05/20/20 04:00 Ordered Magnesium AM LABS Lab 05/21/20 04:00 Ordered MR head wo con* 7 0551 Stat MRI 05/18/20 16:30 Unverified Labs from last 24 hours 05/19/20 05/19/20 05/19/20 04:42 04:42 04:42 WBC 12.8 H RBC 4.35 Hgb 13.8 Hct 41.4 L MCV 95.2 H MCH 31.7 MCHC 33.3 RDW 12.4 Plt Count 227 MPV 11.6 H Neut % (Auto) 66.9 Lymph % (Auto) 22.1 Campbell % (Auto) 9.1 Eos % (Auto) 1.2 Baso % (Auto) 0.5 Neut # (Auto) 8.56 H Lymph # (Auto) 2.8 Campbell # (Auto) 1.2 H Eos # (Auto) 0.2 Baso # (Auto) 0.1 Nucleated RBC % (a uto) 0 Nucleated RBCs # 0.0 Sodium 139 Potassium 4.0 Chloride 107 Carbon Dioxide 25 Anion Gap 11.0 BUN 12 Creatinine 1.0 GFR Calculation 79.1 L Glucose 86 Estimat Average Gl ucose 105 Hemoglobin A1c 5.3 Calculated Osmolal ity 287 Lactate Calcium 8.9 Magnesium 2.3 Total Bilirubin 0.6 AST 19 ALT 22 Alkaline Phosphata se 96 Creatine Kinase Troponin T Baselin e Troponin T 120 Min erasmo Delta Troponin T NT-Pro-B Natriuret Pep 303 H Total Protein 6.1 L Albumin 3.7 Globulin 2.4 Triglycerides 114 Cholesterol 114 LDL Cholesterol, C alc 57 HDL Cholesterol 34 L LDL/HDL Ratio 1.68 Cholesterol/HDL Ra vidhya 3.35 TSH 0.52 Urine Color Urine Appearance Urine pH Ur Specific Gravit y Urine Protein Urine Glucose (UA) Urine Ketones Urine Blood Urine Nitrate Urine Bilirubin Urine Urobilinogen Ur Leukocyte Larisa ase Urine Opiates Scre en Ur Barbiturates Sc reen Ur Phencyclidine S crn Ur Amphetamines Sc reen U Benzodiazepines Scrn Urine Cocaine Scre en U Marijuana (THC) Screen Ethyl Alcohol 05/18/20 05/18/20 05/18/20 15:30 15:03 15:03 WBC RBC Hgb Hct MCV MCH MCHC RDW Plt Count MPV Neut % (Auto) Lymph % (Auto) Campbell % (Auto) Eos % (Auto) Baso % (Auto) Neut # (Auto) Lymph # (Auto) Campbell # (Auto) Eos # (Auto) Baso # (Auto) Nucleated RBC % (a uto) Nucleated RBCs # Sodium Potassium Chloride Carbon Dioxide Anion Gap BUN Creatinine GFR Calculation Glucose Estimat Average Gl ucose Hemoglobin A1c Calculated Osmolal ity Lactate Calcium Magnesium Total Bilirubin AST ALT Alkaline Phosphata se Creatine Kinase Troponin T Baselin e Troponin T 120 Min erasmo 34.34 H Delta Troponin T 22.34 H* NT-Pro-B Natriuret Pep Total Protein Albumin Globulin Triglycerides Cholesterol LDL Cholesterol, C alc HDL Cholesterol LDL/HDL Ratio Cholesterol/HDL Ra vidhya TSH Urine Color Yellow Urine Appearance Clear Urine pH 7 Ur Specific Gravit y 1.010 Urine Protein Neg Urine Glucose (UA) Norm Urine Ketones Negative Urine Blood Neg Urine Nitrate Negative Urine Bilirubin Neg Urine Urobilinogen Norm Ur Leukocyte Larisa ase Negative Urine Opiates Scre en Negative Ur Barbiturates Sc reen Negative Ur Phencyclidine S crn Negative Ur Amphetamines Sc reen Negative U Benzodiazepines Scrn Negative Urine Cocaine Scre en Negative U Marijuana (THC) Screen Negative Ethyl Alcohol 05/18/20 05/18/20 05/18/20 13:22 13:22 13:22 WBC RBC Hgb Hct MCV MCH MCHC RDW Plt Count MPV Neut % (Auto) Lymph % (Auto) Campbell % (Auto) Eos % (Auto) Baso % (Auto) Neut # (Auto) Lymph # (Auto) Campbell # (Auto) Eos # (Auto) Baso # (Auto) Nucleated RBC % (a uto) Nucleated RBCs # Sodium 138 Potassium 3.8 Chloride 102 Carbon Dioxide 22 Anion Gap 17.8 BUN 11 Creatinine 1.0 GFR Calculation 79.1 L Glucose 109 Estimat Average Gl ucose Hemoglobin A1c Calculated Osmolal ity 286 Lactate 4.0 H Calcium 9.3 Magnesium Total Bilirubin 0.3 AST 17 ALT 26 Alkaline Phosphata se 97 Creatine Kinase 144 Troponin T Baselin e 12 Troponin T 120 Min erasmo Delta Troponin T NT-Pro-B Natriuret Pep Total Protein 6.3 L Albumin 4.3 Globulin 2.0 Triglycerides Cholesterol LDL Cholesterol, C alc HDL Cholesterol LDL/HDL Ratio Cholesterol/HDL Ra vidhya TSH 1.27 Urine Color Urine Appearance Urine pH Ur Specific Gravit y Urine Protein Urine Glucose (UA) Urine Ketones Urine Blood Urine Nitrate Urine Bilirubin Urine Urobilinogen Ur Leukocyte Larisa ase Urine Opiates Scre en Ur Barbiturates Sc reen Ur Phencyclidine S crn Ur Amphetamines Sc reen U Benzodiazepines Scrn Urine Cocaine Scre en U Marijuana (THC) Screen Ethyl Alcohol < 10 Vitals: Last Vital Signs Temp 97.0 F L 05/19/20 11:41 Pulse 71 05/19/20 11:41 Resp 17 05/19/20 11:41 BP 141/88 05/19/20 11:41 Pulse Ox 95 05/19/20 11:41 Discharge Plan Discharge Patient Disposition: Home Condition: Stable Prescriptions: Continued Combivent Respimat 20-100 mcg/actuation mist 1 puff inhalation Q6H Qty: 4 RF: 0 albuterol sulfate [Ventolin HFA] 90 mcg/actuation HFA aerosol inhaler 2 inh inhalation Q6H PRN (Reason: shortness of breath or wheezing) Qty: 8.5 RF: 0 nicotine 21 mg/24 hr patch 24 hour 1 patch transdermal DAILY Qty: 30 RF: 0 atorvastatin 40 mg tablet 40 mg PO DAILY@1100 RF: 0 clopidogrel 75 mg tablet 75 mg PO DAILY@1100 RF: 0 Adult Aspirin Regimen 81 mg tablet,delayed release (DR/EC) 81 mg PO DAILY@1100 RF: 0 lisinopril 10 mg tablet 5 mg PO DAILY@1100 RF: 0 metoprolol succinate 25 mg capsule,sprinkle,ER 24hr 12.5 mg PO DAILY@1100 RF: 0 Discharge Orders: Discharge Order (Routine); Ordered 05/19/20 Ordered By: Kaushik Vyas Other Ambulatory Orders: Sestamibi Stress Test Request (Routine) Timeframe: 20200521 Facility: [facility] - Location: Cardiac Diagnostic Laboratory Ordered By: Kaushik CELIS cardiac event monitor (Routine) Timeframe: 20200521 Facility: [facility] - Location: Cardiac Diagnostic Laboratory Ordered By: Kaushik Vyas Referrals: Emmanuel Turner MD [Physician] - 06/09/20 Discharge Diet: Usual diet Discharge Activity: Increase activity as tolerated Activity Restrictions/Additional Instructions: Please call your doctor or present to emergency department if your condition worsens or you develop diarrhea, lightheadedness, fatigue or see blood in your stool or black stool. Please make sure you have stress test performed as well as have event monitor placed on Thursday and follow-up with Dr. Turner. Please continue using the maite tyra patch you have at home. Please try not to smoke anymore as we have discussed. Discharge Attestations Time Spent in Discharge Care*: less than 30 min Quality Metrics Clinical Quality Measures During this hospital stay, did patient experience: AMI Clinical Trial Participant: No Contraindication to aspirin (AMI): Aspirin given Contraindication to statin: Statin prescribed Coding Level of Care Code Acute Pacu Rn for [facility] Fwd Diagnoses Episode of syncope R55 Syncope type: unspecified HTN (hypertension) I10 Hypertension type: essential hypertension Current smoker F17.200 Obesity (BMI 30.0-34.9) E66.9 Chest pain R07.9 COPD (chronic obstructive pulmonary disease) J44.9 Dyslipidemia (high LDL; low HDL) E78.5 Non-ST elevation OH (NSTEMI) I21.4
--- NOTE | 2020-05-19 14:21 | P.PN_ITS ---
Subjective Subjective: Interval history: The patient has not had any syncopal episode or any chest pain, since the hospital admission. His a cardiac telemetry shows no significant arrhythmias. He had echocardiogram this morning which revealed normal LV size with a slightly diminished ejection fraction of around 50%. Compared to the previous study from March, there is no significant change. Medications: Reviewed: Yes Medication Review Details: Current Medications Acetaminophen (Acetaminophen 325 Mg Tablet) 650 mg PO Q6H PRN PRN Reason: Mild/Mod Pain Or Temp >/= 101 Hydrocodone Bitart/Acetaminophen (Hydrocodone-Acetaminophen 5-325 Mg Tablet) 1 tab PO Q4H PRN PRN Reason: MODERATE TO SEVERE PAIN Albuterol Sulfate (Albuterol 8 Gm Mdi) 1 puff INHALATION Q6H PRN PRN Reason: shortness of breath or wheezing Albuterol/Ipratropium (Ipratropium-Albuterol 4 Gm Mdi) 1 puff INHALATION Q6H [facility] Last Admin: 05/19/20 08:32 Dose: 1 puff Documented by: Aspirin (Aspirin 81 Mg Ec Tablet) 81 mg PO DAILY@1100 [facility] Last Admin: 05/19/20 11:31 Dose: 81 mg Documented by: Atorvastatin Calcium (Atorvastatin 40 Mg Tablet) 40 mg PO DAILY@1100 [facility] Last Admin: 05/19/20 11:31 Dose: 40 mg Documented by: Bisacodyl (Bisacodyl 5 Mg Tablet) 10 mg PO DAILY PRN PRN Reason: CONSTIPATION Clopidogrel Bisulfate (Clopidogrel 75 Mg Tablet) 75 mg PO DAILY@1100 [facility] Last Admin: 05/19/20 11:31 Dose: 75 mg Documented by: Enoxaparin Sodium (Enoxaparin 100 Mg/Ml Syringe) 100 mg SUBCUT Q12H [facility] Last Admin: 05/19/20 06:15 Dose: 100 mg Documented by: Lactated Ringer's (Lactated Ringers) 1,000 mls @ 50 mls/hr IV .Q20H [facility] Last Admin: 05/18/20 18:06 Dose: 50 mls/hr Documented by: Levetiracetam (Levetiracetam 500 Mg Tablet) 500 mg PO BID [facility] Last Admin: 05/19/20 08:24 Dose: 500 mg Documented by: Lisinopril (Lisinopril 5 Mg Tablet) 5 mg PO DAILY@1100 [facility] Last Admin: 05/19/20 11:31 Dose: 5 mg Documented by: Metoprolol Succinate (Metoprolol Succinate Er (24 Hr) 25 Mg Tablet) 12.5 mg PO DAILY@1100 [facility] Last Admin: 05/19/20 11:31 Dose: 12.5 mg Documented by: Nicotine (Nicotine 21 Mg Patch) 1 patch TRANSDERMA DAILY [facility] Last Admin: 05/19/20 08:25 Dose: 1 patch Documented by: Pantoprazole Sodium (Pantoprazole Dr 40 Mg Tablet) 40 mg PO DAILY [facility] Last Admin: 05/19/20 08:24 Dose: 40 mg Documented by: Vitals/I&O/Wt Last Vital Signs Temp 97.0 F L 05/19/20 11:41 Pulse 71 05/19/20 11:41 Resp 17 05/19/20 11:41 BP 141/88 05/19/20 11:41 Pulse Ox 95 05/19/20 11:41 05/18/20 05/19/20 05/19/20 22:59 06:59 14:59 Intake Total 1350 / 1363.5 360 / 360 Output Total 550 / 550 725 / 725 Balance 1350 / 1363.5 -550 / 813.5 -365 / -365 Weight last 48 hrs Weight 230 lb Physical Exam Narrative: EXAM NARRATIVE: GENERAL: The patient is alert and oriented times three. Not in any acute distress. HEENT: No significant pallor, icterus or lymphadenopathy. NECK: Trachea appears to be central. No masses noted. No JVD or thyromegaly appreciated. No carotid bruit. RESPIRATORY: Chest is symmetrical. No intercostals muscle retraction or any accessory muscle activation. There is no chest wall tenderness. Breath sounds are heard bilaterally. No rales or rhonchi heard. No evidence of any consolidation. BREASTS: Deferred. HEART: The heart sounds are normal no S3-S4. No significant murmurs. No pericardial rub. ABDOMEN: No vessel pulsations or distention. No tenderness. No organomegaly appreciated. No abdominal bruit. Bowel sounds are normally heard. : Deferred. RECTAL: Deferred. LYMPHATIC: No lymphadenopathy noted in the neck or groin. EXTREMITIES: No edema or cyanosis. No clubbing. The pulses are symmetrical bilaterally. MUSCULOSKELETAL: No acute joint deformities or swelling SKIN: Extensive tattoo markings especially in the upper extremities NEUROPSYCHIATRIC: The patient is alert and oriented x3. Appears to be in a good mood. The higher functions are grossly within normal limits. No tremors or rigidity noted. Data : 05/19/20 04:42 05/19/20 04:42 A&P Assessment and plan (1) Episode of syncope: Etiology of the syncope is unclear at this time. Possibility of a cardiac arrhythmia, coronary ischemia or seizure disorder are considerations. The EKG is unremarkable. Since he had stenting of the LAD in March chance of a stent occlusion may be very low. The right coronary artery was totally occluded with a minimal disease in the circumflex artery. The echocardiogram was reviewed today. Patient has some wall motion abnormalities in the inferolateral wall region. The EKG does not show any new changes. Status: Acute Qualifiers: Syncope type: unspecified Qualified Code(s): R55 - Syncope and collapse (2) Elevated troponin: As mentioned above. From a cardiac arrhythmia causing the elevated troponin T also is a consideration. He may be treated with therapeutic dose of Lovenox, if there is no contraindication. A repeat troponin T from today would be appropriate. Status: Acute (3) Atherosclerotic heart disease [place] coronary artery w/angina pectoris: If there is no document arrhythmia, seizure activity, we may consider doing a myocardial perfusion imaging, to further evaluate his coronary status. Patient is not wanting stay in the hospital for this procedure. He would rather go home and come back. We may make arrangements to have it done as an outpatient. Status: Acute Qualifiers: [place] vs. transplanted heart: [place] heart Qualified Code(s): I25.119 - Atherosclerotic heart disease of [place] coronary artery with unspecified angin a pectoris (4) Dyslipidemia (high LDL; low HDL): Continue on the current medications. Follow-up evaluation as scheduled. Status: Acute (5) Sleep apnea: Patient may continue the CPAP. Status: Acute Qualifiers: Sleep apnea type: other type Qualified Code(s): G47.39 - Other sleep apnea (6) Benign essential HTN: Currently the blood pressure is in the normal range. May continue on the current medications. Status: Acute Additional A&P Information If the patient continues remain stable, if he is wanting to go home, it may be appropriate to send him home to have a an outpatient event monitor. He also need to be scheduled for a exercise/sestamibi/sestamibi stress test soon as possible as an outpatient. Based on the results of this test, further recommendations will be made. 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 transplanted heart: [place] heart Dyslipidemia (high LDL; low HDL) E78.5 Sleep apnea G47.39 Sleep apnea type: other type Benign essential HTN I10
[2020-05-19 14:22] VITALS: BP 141/88; PULSE 71; RESP 17; TEMP 36.1; O2SAT 95
[2020-05-19 14:39] VITALS: PULSE 57; RESP 18; O2SAT 98
[2020-05-19 14:56] LABS: Troponin T (5th) Once 21 ng/L (0-15)
--- NOTE | 2020-05-19 19:12 | USCV_ITS ---
Twin To Age: 49 Gender: M : 1970 Exam Date: 05/19/2020 07:10 Ordering Phys: Emmanuel Turner MD ([email or web address]) Technologist: Ping Valiente Exam Location[place] [facility] [place] Indication: CHEST PAIN BP: / HR: 56 Rhythm: Sinus Technical Quality: Adequate MEASUREMENTS (Male / Female) Normal Values 2D ECHO LV Diastolic Diameter PLAX 5.6 cm 4.2 - 5.9 / 3.9 - 5.3 cm LV Systolic Diameter PLAX 4.1 cm LV Chamber Size 3.7 cm IVS Diastolic Thickness 1.1 cm 0.6 - 1.0 / 0.6 - 0.9 cm IVS Systolic Thickness 1.6 cm LVPW Diastolic Thickness 1.2 cm 0.6 - 1.0 / 0.6 - 0.9 cm LVPW Systolic Thickness 1.3 cm RV Chamber Size 3.2 cm LVOT Diameter 2.0 cm LV Ejection Fraction 2D Teich 51.8 % LV Ejection Fraction MOD 2C 41.4 % LV Ejection Fraction 2C AL 40.2 % LA Diameter 3.9 cm LA Width 3.4 cm LA Height 4.2 cm RA Width 3.2 cm RA Height 3.6 cm Aorta at Sinotubular Diameter 3.2 cm M-MODE LV Diastolic Diameter MM 5.9 cm 4.2 - 5.9 / 3.9 - 5.3 cm LV Systolic Diameter MM 4.4 cm LV Ejection Fraction MM Teich 49.4 % IVS Diastolic Thickness MM 1.3 cm 0.6 - 1.0 / 0.6 - 0.9 cm IVS Systolic Thickness MM 1.7 cm LVPW Diastolic Thickness MM 1.3 cm 0.6 - 1.0 / 0.6 - 0.9 cm LVPW Systolic Thickness MM 1.7 cm RV Diastolic Diameter MM 1.4 cm Aortic Annulus Diameter 3.4 cm LA Ao Ratio MM 1.3 MV E Point Septal Separation 0.9 cm FINDINGS Left Ventricle Normal LV size with a diminished ejection fraction of around 50%. Mild hypokinesia of the mid and apical inferolateral and basal inferior wall segment.mild left ventricular hypertrophy. Right Ventricle Normal right ventricular size and systolic function. Right Atrium The right atrium is normal in size. Left Atrium The left atrium is normal in size. Mitral Valve Thickened mitral valve. Aortic Valve Thickened aortic valve. Tricuspid Valve Gesf-vs-wlscycra tricuspid valve regurgitation. Pulmonic Valve No gross abnormalities noted Pericardium No pericardial effusion. Aorta Normal ascending aorta dimension. CONCLUSIONS Normal LV size with a diminished ejection fraction of around 50%. Mild hypokinesia of the mid and apical inferolateral and basal inferior wall segment.mild left ventricular hypertrophy. Thickened mitral valve. There is no pericardial effusion. There are no intracardiac masses. Compared to the previous study from 03/07/2020, there may not be a significant change. Dr Emmanuel Turner MD FACC (Electronically Signed) Final Date: 19 May 2020 11:51 S
== END 2020-05-19 15:18 | disposition home or self-care (01) | DRG 282 ==
LOC: ER 15:18 → CSU 16:35
PROVIDERS: Internal Medicine Cardiovascular Disease; Admitting Provider Internal Medicine; Emergency Provider Family Medicine; Visit Provider Internal Medicine
DX: I21.4 Non-ST elevation (NSTEMI) myocardial infarction (principal); E78.5 Hyperlipidemia, unspecified; I10 Essential (primary) hypertension; E66.9 Obesity, unspecified; J44.9 Chronic obstructive pulmonary disease, unspecified; F17.210 Nicotine dependence, cigarettes, uncomplicated; Z91.81 History of falling; Z79.82 Long term (current) use of aspirin; Z79.02 Long term (current) use of antithrombotics/antiplatelets; R00.1 Bradycardia, unspecified; I25.10 Atherosclerotic heart disease of native coronary artery without angina pectoris; Z68.31 Body mass index [BMI] 31.0-31.9, adult
CPT/HCPCS: 36415; 70450; 70551; 71100; 72125; 74176; 80053; 80061; 80306; 80307; 81003; 82550; 83036; 83605; 83735; 83880; 84443; 84484; 85025; 93005; 93308; 94640; 96365; 96372; 96375; 99285; J1165; J1650; J1885; J1953; J2405; J3535; J7030

== ENCOUNTER 2020-05-23 08:12 | Outpatient (CLI) | payer SELFPAY ==
[2020-05-23 08:54] VITALS: BMI 31.7
--- NOTE | 2020-05-23 09:57 | NMCV_ITS ---
NM tahira perf SPECT r/s* [id number] Twin To Age: 49 Gender: M : 1970 Exam Date: 05/23/2020 09:57 Ordering Phys: Kaushik Vyas MD Technologist: CAM Ford Exam Location: [facility] Indications: NSTEMI STRESS TEST [facility] IMAGE PROTOCOL Rest/Stress 1 Lexiscan Day Radiopharmaceutical Dose (mCi) Administration Site Administered by Rest: Tc-99m 10.6 IV CAM Ford Sestamibi Stress:Tc-99m 33.0 IV CAM Bermudez Sestamibi Rest: 23-May-2020 60 Discovery 630 Stress: 23-May-2020 30 Discovery 630 0.4mg Lexiscan. Images obtained in supine and prone position. SPECT RESULTS Technical Quality: Excellent Raw Data Analysis: Normal Image Corrections: No attenuation or motion correction applied Summed Stress Score: 3 Summed Rest Score: 0 Summed Difference Score: 3 PERFUSION FINDINGS Small area of fixed perfusion defect noted in basal to mid inferior wall which showed medium-sized area of moderate to severe reversibility, suggestive of small area of old myocardial infarction surrounded by moderate to severe medium-sized area of latisha-infarct ischemia. It is suggestive of possible lesion in the RCA territory. FUNCTIONAL RESULTS (calculated via Gated SPECT) Stress Image LV EF (%): 57 Stress EDV (mL):181 TID: 0.82 Stress ESV (mL):77 Rest Image LV EF (%): 57 FUNCTIONAL FINDINGS: Inferior wall hypokinesis IMPRESSIONS Small area of old myocardial infarction surrounded by medium-sized area of moderate to severe latisha-infarct ischemia suggestive of possible lesion in the RCA territory noted. EKG segment will be documented separately. Anabella Huston MD (Electronically Signed) Final Date: 23 May 2020 16:35 S
--- NOTE | 2020-05-23 10:45 | ECG_ITS ---
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 The perfusion scan will be documented separately. DATA: Baseline heart rate was 55 beats per minute. Baseline blood pressure was 155/51 millimeters of mercury. Target heart rate was 170. Maximum heart rate achieved was 128. which was 75 % of the predicted target heart rate. Maximum blood pressure was 256/96 millimeters of mercury. The reason for ending the test was completion of the protocol. The patient did not experience any symptoms. ELECTROCARDIOGRAM: BASELINE: Sinus rhythm. Normal axis. Otherwise, no ST-T changes suggestive of ischemia noted. No arrhythmia noted. EXERCISE: After Lexiscan injection, no ST-T changes suggestive of ischemic noted. No arrhythmia noted. 1. EKG not suggestive of ischemia 2. Lexiscan injection unremarkable. 3. Perfusion scan will be documented separately. Electronically Signed On 05-23-2020 18:48:47 PRIME BROKER by VIKRAM PEARCE [email or web address]
[2020-05-23] MEDS: regadenoson 0.4 Mg/5 ml Syringe IVP (11:00)
[2020-05-23 11:18] VITALS: BP 221/79; PULSE 72
== END 2020-05-23 08:13 | disposition home or self-care (01) ==
LOC: RAD 08:18 → CDL 08:48
PROVIDERS: Visit Provider Internal Medicine
DX: I21.4 Non-ST elevation (NSTEMI) myocardial infarction (principal)
CPT/HCPCS: 78452; 93017; A9500; J2785

== ENCOUNTER 2021-01-06 20:50 | Inpatient (IN) | payer SELFPAY ==
--- NOTE | 2021-01-06 20:58 | ED_ITS ---
HPI - Chest Pain General: Chief Complaint: Chest Pain Stated Complaint: cp Time Seen by Provider: 01/06/21 20:57 History of Present Illness: HPI narrative: Mr. To is a 50-year-old gentleman with significant past medical history of obesity, tobaccoism, COPD, hypertension, hyperlipidemia, and NSTEMI status post PCI who presents the emergency department due to chest pain. He reports being at his baseline health recently he does occasionally get chest pain however had onset of symptoms at about 7 PM acutely while he was sitting. He describes midsternal chest pressure which is moderate in intensity with radiation of the left arm and tingling down the arm. He has mild associated shortness of breath which is worse than normal though he is still smoking. He reports compliance with his cardiac regimen of medications with exception of one missed dose approximately 2 days ago. He took 162 mg of aspirin prior to arrival. Overall the course of symptoms has persisted which is atypical. No other specific known exacerbating, alleviating, or provoking factors identified. He is unable to characterize if this is similar to prior MIs. At baseline patient has 2 or 3 short lasting episodes less than 1 minute of chest pain per week and this is different from his baseline. Review of Systems General: Reports: 10 or more systems reviewed and unremarkable except in HPI and below PFSH ED PFSH: Medical History Acute non-ST elevation myocardial infarction (NSTEMI) Atherosclerotic heart disease [place] coronary artery w/angina pectoris Bradycardia COPD (chronic obstructive pulmonary disease) Current smoker Dyslipidemia (high LDL; low HDL) Elevated blood pressure reading Surgical History Amputation finger traumatic, with surgical reattachment of both index fingers History of ankle surgery Previous back surgery Coccyx Family History Father CAD (coronary artery disease) of massive [place] in his 40s Diabetes Stroke Mother Cancer Lung cancer Lung disease Denies family history of Clotting disorder Dementia Chronic kidney disease (CKD) Suicide Anesthesia complication Bleeding disorder Social History Smoking and tobacco status: heavy tobacco smoker cigarettes Packs smoked per day: 1.5 [ Other cigarette details: Previously up to 4ppd, then 2, now down to 1 ] Alcohol intake: never Lives independently: Yes Household members: spouse Marital status: Current occupational status: employed Physical Exam Narrative: EXAM NARRATIVE: GENERAL/CONSTITUTIONAL -mildly ill-appearing. Uncomfortable. Eyes - PERRL, no conjunctival injection ENMT - Atraumatic external nose and ears. Moist mucous membranes NECK - supple. trachea midline CARDIOVASCULAR - regular rate and rhythm. Peripheral pulses 2+ and equal RESPIRATORY -clear to auscultation bilaterally. No retractions or accessory muscle use. ABDOMEN/GI - Nontender. Nondistended. MSK - Extremities without obvious deformity or tenderness to palpation SKIN - Warm, mildly diaphoretic NEURO - alert and appropriately oriented. strength and sensation intact. Moves all extremities equally. PSYCH - Appropriate mood and affect Course ED course: - Patient was seen and evaluated by me at bedside - Patient placed on cardiac monitors, IV access obtained - Initial evaluation notable for exam as noted above, chest pain not r eproducible with physical exam palpation -Patient had taken 2 baby aspirin prior to arrival, aspirin ordered. - Labs notable for minimal leukocytosis, no significant metabolic abnormalities, delta troponin negative. - Imaging notable for no acute abnormality to explain symptoms -Discussed with cardiology recommended admission given complex past medical history - Upon serial reexamination after treatment the patient was mildly improved - Based on patient history, evaluation, labs, and imaging as interpreted the most likely cause of the patient's condition is unclear, concern for unstable angina - The results of ED evaluation were discussed with the patient including plan for admission due to requirement for level of care not available if discharged to prevent significant worsening/deterioration. -Hospitalist service contacted and agreed admit the patient. - Patient was admitted without further deterioration or significant events. Vital Signs: Vital signs: Vital Signs Temperature 98.3 F 01/08/21 08:00 Pulse Rate 58 L 01/08/21 12:50 Respiratory Rate 18 01/08/21 08:00 Blood Pressure 131/75 01/08/21 08:00 Pulse Oximetry 96 01/08/21 12:50 MDM - Chest Pain Medical Records: Attestation: I reviewed the patient's medical records. Lab Data: Attestation: I reviewed the patient's lab results. Labs: Lab Results 01/06/21 01/06/21 01/06/21 21:05 21:05 21:05 WBC 11.1 10^3/uL H 10 ^3/uL (4.0-10.0) RBC 4.72 10^6/uL 10^6 /uL (4.1-5.3) Hgb 15.5 g/dL g/dL (11.7-16.6) Hct 45.5 % % (42.0-52.0) MCV 96.4 fl H fl (80-94) MCH 32.8 pg pg (28.0-34.0) MCHC 34.1 g/dL g/dL (30.0-36.0) RDW 12.5 % % (12.1-15.1) Plt Count 234 10^3/cmm 10^3 /cmm (130-400) MPV 11.0 fL H fL (7.4-10.4) Neut % (Auto) 50.2 % % Lymph % (Auto) 34.7 % % [place] % (Auto) 9.9 % % Eos % (Auto) 4.0 % % Baso % (Auto) 1.0 % % Neut # (Auto) 5.56 10^3/uL 10^3 /uL (1.8-7.7) Lymph # (Auto) 3.9 10^3/uL 10^3/ uL (0.8-4.8) [place] # (Auto) 1.1 10^3/uL H 10^ 3/uL (0.2-0.9) Eos # (Auto) 0.4 10^3/uL 10^3/ uL (0.0-0.8) Baso # (Auto) 0.1 10^3/uL 10^3/ uL (0.0-0.1) Nucleated RBC % (a uto) 0 % % Nucleated RBCs # 0.0 /100WBC /100W BC Sodium 140 mmol/L mmol/L (136-145) Potassium 4.0 mmol/L mmol/L (3.5-5.1) Chloride 104 mmol/L mmol/L (98-107) Carbon Dioxide 26 mmol/L mmol/L (22-29) Anion Gap 14.0 (5-19) BUN 13 mg/dL mg/dL (6-20) Creatinine 0.8 mg/dL mg/dL (0.7-1.2) GFR Calculation 101.9 mL/min mL/m in (90-130) Glucose 109 mg/dL mg/dL (65-115) Calculated Osmolal ity 291 mOsm/kg mOsm/ kg (285-295) Calcium 9.9 mg/dL mg/dL (8.5-10.5) Magnesium Total Bilirubin 0.2 mg/dL mg/dL (0.15-1.2) AST 15 U/L U/L (0-40) ALT 26 U/L U/L (0-41) Alkaline Phosphata se 103 IU/L IU/L (40-130) Troponin T Baselin e 7 ng/L ng/L (0-15) Troponin T 120 Min [place] Troponin T Troponin T Hi Sens 6Hr Troponin T Hi Sens 6Hr [place] Total Protein 6.8 g/dL g/dL (6.6-8.7) Albumin 4.3 g/dL g/dL (3.5-5.2) Globulin 2.5 g/dL g/dL (1.3-4.6) Triglycerides Cholesterol LDL Cholesterol, C alc HDL Cholesterol LDL/HDL Ratio Cholesterol/HDL Ra vidhya Procalcitonin TSH 01/06/21 01/06/21 01/07/21 22:47 22:47 03:11 WBC RBC Hgb Hct MCV MCH MCHC RDW Plt Count MPV Neut % (Auto) Lymph % (Auto) [place] % (Auto) Eos % (Auto) Baso % (Auto) Neut # (Auto) Lymph # (Auto) [place] # (Auto) Eos # (Auto) Baso # (Auto) Nucleated RBC % (a uto) Nucleated RBCs # Sodium Potassium Chloride Carbon Dioxide Anion Gap BUN Creatinine GFR Calculation Glucose Calculated Osmolal ity Calcium Magnesium Total Bilirubin AST ALT Alkaline Phosphata se Troponin T Baselin e Troponin T 120 Min [place] 6.68 ng/L ng/L (0-15) Delta Troponin T -0.32 ABS# L ABS# (0-10) Troponin T Hi Sens 6Hr 7.62 ng/L ng/L (0-15) Troponin T Hi Sens 6Hr [place] 0.62 ng/L ng/L (0-12) Total Protein Albumin Globulin Triglycerides Cholesterol LDL Cholesterol, C alc HDL Cholesterol LDL/HDL Ratio Cholesterol/HDL Ra vidhya Procalcitonin 0.05 ng/mL ng/mL (0-0.5) TSH 01/07/21 01/07/21 01/07/21 03:11 03:11 03:11 WBC 9.5 10^3/uL 10^3/ uL (4.0-10.0) RBC 4.66 10^6/uL 10^6 /uL (4.1-5.3) Hgb 14.9 g/dL g/dL (11.7-16.6) Hct 44.6 % % (42.0-52.0) MCV 95.7 fl H fl (80-94) MCH 32.0 pg pg (28.0-34.0) MCHC 33.4 g/dL g/dL (30.0-36.0) RDW 12.3 % % (12.1-15.1) Plt Count 219 10^3/cmm 10^3 /cmm (130-400) MPV 10.9 fL H fL (7.4-10.4) Neut % (Auto) 52.4 % % Lymph % (Auto) 33.8 % % [place] % (Auto) 8.4 % % Eos % (Auto) 3.9 % % Baso % (Auto) 1.3 % % Neut # (Auto) 5.01 10^3/uL 10^3 /uL (1.8-7.7) Lymph # (Auto) 3.2 10^3/uL 10^3/ uL (0.8-4.8) [place] # (Auto) 0.8 10^3/uL 10^3/ uL (0.2-0.9) Eos # (Auto) 0.4 10^3/uL 10^3/ uL (0.0-0.8) Baso # (Auto) 0.1 10^3/uL 10^3/ uL (0.0-0.1) Nucleated RBC % (a uto) 0 % % Nucleated RBCs # 0.0 /100WBC /100W BC Sodium 141 mmol/L mmol/L (136-145) Potassium 4.0 mmol/L mmol/L (3.5-5.1) Chloride 105 mmol/L mmol/L (98-107) Carbon Dioxide 27 mmol/L mmol/L (22-29) Anion Gap 13.0 (5-19) BUN 15 mg/dL mg/dL (6-20) Creatinine 0.9 mg/dL mg/dL (0.7-1.2) GFR Calculation 89.0 mL/min L mL/ min (90-130) Glucose 111 mg/dL mg/dL (65-115) Calculated Osmolal ity 294 mOsm/kg mOsm/ kg (285-295) Calcium 9.6 mg/dL mg/dL (8.5-10.5) Magnesium 2.3 mg/dL mg/dL (1.7-2.3) Total Bilirubin 0.3 mg/dL mg/dL (0.15-1.2) AST 12 U/L U/L (0-40) ALT 24 U/L U/L (0-41) Alkaline Phosphata se 101 IU/L IU/L (40-130) Troponin T Baselin e Troponin T 120 Min [place] Troponin T Troponin T Hi Sens 6Hr Troponin T Hi Sens 6Hr [place] Total Protein 6.2 g/dL L g/dL (6.6-8.7) Albumin 4.1 g/dL g/dL (3.5-5.2) Globulin 2.1 g/dL g/dL (1.3-4.6) Triglycerides 73 mg/dL mg/dL (0-150) Cholesterol 132 mg/dL mg/dL (0-200) LDL Cholesterol, C alc 81 mg/dL mg/dL (50-129) HDL Cholesterol 36 mg/dL L mg/dL (60-100) LDL/HDL Ratio 2.25 RATIO RATIO (0.00-3.22) Cholesterol/HDL Ra vidhya 3.67 mg/dL mg/dL (1.0-5.00) Procalcitonin TSH 1.79 uIU/mL uIU/m L (0.27-4.20) EKG Data^: EKG 1: Attestation: I personally reviewed and interpreted this EKG as follows: EKG interpretation date: 01/06/21 EKG interpretation time: 21:04 Interpretation: Twelve-lead EKG shows a regular rhythm at a rate of 54. OH interval 138, QRS duration 99, QTc 419. Normal axis. Interpretation: Sinus bradycardia. EKG 2: Attestation: I personally reviewed and interpreted this EKG as follows: EKG interpretation date: 01/06/21 EKG interpretation time: 23:01 Interpretation: Twelve-lead EKG shows a regular sinus rhythm at a rate of 51. OH interval 146, QRS duration 99, QTc 437. Normal axis. Interpretation: Sinus rhythm. Bradycardia. Similar to prior. Discharge Plan Discharge Patient Disposition: Admitted As Inpatient Admit Provider: Maxine Garcia Condition: Stable Discharge Diet: Cardiac Discharge Activity: Resume usual activity Coding Level of Care Code ED [place] Screen Operator for Rafaela Dow
[2021-01-06 21:04] VITALS: BP 139/82; PULSE 62; RESP 20; O2SAT 97; BMI 44.7
--- NOTE | 2021-01-06 21:06 | ECG_ITS ---
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
--- NOTE | 2021-01-06 21:06 | XRR_ITS ---
PROCEDURE INFORMATION: Exam: XR Chest Exam date and time: 01/06/2021 9:06 PM Age: 50 years old Clinical indication: Sternal or substernal pain; Patient HX: C/O cp w SOB; Additional info: Chest pain TECHNIQUE: Imaging protocol: XR of the chest. Views: 1 view. COMPARISON: CR XR chest 1V portable [id number] 03/07/2020 10:02 AM FINDINGS: Lungs: Unremarkable. No consolidation. Pleural spaces: Unremarkable. No pleural effusion. No pneumothorax. Heart/Mediastinum: Unremarkable. No cardiomegaly. Bones/joints: Unremarkable. XR/XR chest 1V portable [id number] IMPRESSION: No acute findings.
[2021-01-06 21:12] LABS: Basophils # 0.1 10^3/uL (0.0-0.1); Eosinophils # 0.4 10^3/uL (0.0-0.8); Hematocrit 45.5 % (42.0-52.0); Hemoglobin 15.5 g/dL (11.7-16.6); Lymphocytes # 3.9 10^3/uL (0.8-4.8); Lymphocytes % 34.7 %; Mean Corpuscular HGB Conc 34.1 g/dL (30.0-36.0); Mean Corpuscular Hemoglobin 32.8 pg (28.0-34.0); Mean Corpuscular Volume 96.4 fl (80-94); Monocytes # 1.1 10^3/uL (0.2-0.9); Monocytes % 9.9 %; Neutrophils # 5.56 10^3/uL (1.8-7.7); Neutrophils % 50.2 %; Nucleated Red Blood Cells % 0 %; Platelet Count 234 10^3/cmm (130-400); Red Blood Count 4.72 10^6/uL (4.1-5.3); Red Cell Distribution Width 12.5 % (12.1-15.1); White Blood Count 11.1 10^3/uL (4.0-10.0)
[2021-01-06 21:34] LABS: Alanine Aminotransferase 26 U/L (0-41); Albumin Level 4.3 g/dL (3.5-5.2); Alkaline Phosphatase 103 IU/L (40-130); Aspartate Amino Transferase 15 U/L (0-40); Blood Urea Nitrogen 13 mg/dL (6-20); Calcium 9.9 mg/dL (8.5-10.5); Carbon Dioxide 26 mmol/L (22-29); Chloride 104 mmol/L (98-107); Creatinine Clr Calc Pharmacy 164.4553; Globulin 2.5 g/dL (1.3-4.6); Glomerular Filtration Rate 101.9 mL/min (90-130); Glucose 109 mg/dL (65-115); Osmolality Calculated 291 mOsm/kg (285-295); Sodium 140 mmol/L (136-145); Total Bilirubin 0.2 mg/dL (0.15-1.2); Total Protein 6.8 g/dL (6.6-8.7)
[2021-01-06 21:35] LABS: Troponin(5th) Baseline 7 ng/L (0-15)
[2021-01-06 21:52] VITALS: BP 148/70; PULSE 55; RESP 18; O2SAT 96
[2021-01-06] MEDS: aspirin 81 mg Chew Tablet 162 MG PO (22:01)
[2021-01-06 22:03] VITALS: PULSE 50; RESP 16; O2SAT 96
[2021-01-06] MEDS: ipratropium-albuterol 3 mL Neb INHALATION (22:06)
--- NOTE | 2021-01-06 23:06 | ECG_ITS ---
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
--- NOTE | 2021-01-06 23:11 | PM.HP ---
Providers/Chief Complaint Admitting Physician: Maxine Garcia Chief Complaint: cp History of Present Illness 50 y/o With a past medical history significant for chronic obstructive pulmonary disease, tobacco abuse, hypertension, dyslipidemia, coronary artery disease with prior LAD stent and total RCA occlusion Is presented to the hospital with chest pain. States he has been getting intermittent episodes of chest pain for some time.Today noted some radiation towards left arm. Denies shortness of breath. No nausea vomiting. Upon arrival to emergency roomHis laboratory workup showed WBC of 9.5, hemoglobin of 14.9, hematocrit of 44.6, platelet count 219. Sodium 141, potassium 4.0, chloride 105, bicarb 27, BUN 15 and creatinine of 0.9. Troponin trend negative. Total cholesterol 132, LDL 81, HDL 36 and TSH of 1.79.Imaging studies included a chest x-ray which was negative. In review of records patient does have nuclear stress test performed on May 23, 2020 which a small area of old myocardial infarction surrounded by medium-sized area of moderate to severe latisha-infarct ischemia suggestive of possible lesion in the RCA territory noted. In Er patient was given NGT 0.4 mg SL x 1, and aspirin 162 mg PO x1. Patient was chest pain free at the time of my eval. Review of Systems General: Reports: 10 or more systems reviewed and unremarkable except in HPI and below Medications/Allergies Home Medications Medication Instructions Recorded Confirmed Last Taken Type Combivent Respimat 1 puff INHALATION Q6H #4 g 03/10/20 05/18/20 Unknown Rx albuterol sulfate [Ventolin HFA] 2 inh INHALATION Q6H PRN #8.5 g 03/10/20 05/18/20 05/17/20 Rx nicotine 1 patch TRANSDERMAL DAILY #30 ea 03/10/20 05/18/20 Unknown Rx Adult Aspirin Regimen 81 mg PO DAILY@109905/18/20 05/18/20 05/18/20 History clopidogrel 75 mg PO DAILY@109905/18/20 05/18/20 05/18/20 History metoprolol succinate 12.5 mg PO DAILY@109905/18/20 05/18/20 05/18/20 History atorvastatin 40 mg tablet See Rx Instructions .ROUTE 10/09/20 Unknown Rx .COMPLEX #30 tablet lisinopril 10 mg tablet 5 mg PO DAILY@1100 #45 tab 11/14/20 Unknown Rx Allergies Allergy/AdvReac Type Severity Reaction Status Date / Time meperidine [From Demerol] Allergy ALGY-Rash Verified 09/18/20 08:41 PFSH Acute PFSH: Medical History Acute non-ST elevation myocardial infarction (NSTEMI) Atherosclerotic heart disease [place] coronary artery w/angina pectoris Bradycardia COPD (chronic obstructive pulmonary disease) Current smoker Dyslipidemia (high LDL; low HDL) Elevated blood pressure reading Surgical History Amputation finger traumatic, with surgical reattachment of both index fingers History of ankle surgery Previous back surgery Coccyx Family History Father CAD (coronary artery disease) of massive [place] in his 40s Diabetes Stroke Mother Cancer Lung cancer Lung disease Denies family history of Clotting disorder Dementia Chronic kidney disease (CKD) Suicide Anesthesia complication Bleeding disorder Social History Smoking and tobacco status: heavy tobacco smoker cigarettes Packs smoked per day: 1.5 [ Other cigarette details: Previously up to 4ppd, then 2, now down to 1 ] Alcohol intake: never Lives independently: Yes Household members: spouse Marital status: Current occupational status: employed Vitals/I&O/Wt Last Vital Signs Temp 97.7 F 01/07/21 01:11 Pulse 49 L 01/07/21 01:11 Resp 16 01/07/21 01:11 BP 173/93 01/07/21 01:11 Pulse Ox 96 01/07/21 01:11 Weight last 48 hrs Weight 149.685 kg Physical Exam Narrative: EXAM NARRATIVE: General : alert awake and oriented x3, NA HEENT: Grossly unremarkable CVS; NSR CHEST: Nonlabored respiration Abd Soft, NT, ND Ext, No edema Data : 01/07/21 03:11 01/07/21 03:11 A&P Assessment and plan (1) Atherosclerotic heart disease [place] coronary artery w/angina pectoris: hx of LAD stent / Complete RCA occlusion Troponin trend negative Cp resolved with SL NGT Aspirin 81 mg PO daily Plavix 75 mg PO daily Lipitor 40 mg PO qhs Monitor on tele Cardiology consulted in ER - assess for cath 05/23 - nuclear stress - noted in HPI NPO overnight Status: Acute Qualifiers: [place] vs. transplanted heart: [place] heart Qualified Code(s): I25.119 - Atherosclerotic heart disease of [place] coronary artery with unspecified angina pectoris (2) Benign essential HTN: Resume home regimen Status: Acute (3) COPD (chronic obstructive pulmonary disease): Duoneb q6hr PRN Status: Acute (4) DVT prophylaxis: Heparin 5000 units q8hr Status: Acute Attestations Medical Necessity Statement*: Anticipate less than 2 midnight stay in hospital for evaluation and treatment Time Spent in Patient Care: Greater than 35 minutes (>than 50% of time spent in counselling and/or direct pt care on unit). Coding Level of Care Code Acute Food Safety Director for Rafaela Dow Diagnoses Atherosclerotic heart disease [place] coronary artery w/angina pectoris I25.119 [place] vs. transplanted heart: [place] heart Benign essential HTN I10 COPD (chronic obstructive pulmonary disease) J44.9 DVT prophylaxis Z29.9
[2021-01-06 23:20] LABS: Troponin 5 2HR 6.68 ng/L (0-15)
[2021-01-06 23:24] LABS: Troponin 5 2HR Delta -0.32 ABS# (0-10)
[2021-01-06 23:45] LABS: Procalcitonin 0.05 ng/mL (0-0.5)
[2021-01-07] VITALS (8 sets, daily range): BP systolic 106–173; BP diastolic 61–93; PULSE 48–86; RESP 16–20; TEMP 36.5–37.2; O2SAT 92–98
--- NOTE | 2021-01-07 03:06 | ECG_ITS ---
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
[2021-01-07 03:17] LABS: Basophils # 0.1 10^3/uL (0.0-0.1); Basophils % 1.3 %; Eosinophils # 0.4 10^3/uL (0.0-0.8); Eosinophils % 3.9 %; Hematocrit 44.6 % (42.0-52.0); Hemoglobin 14.9 g/dL (11.7-16.6); Lymphocytes # 3.2 10^3/uL (0.8-4.8); Lymphocytes % 33.8 %; Mean Corpuscular HGB Conc 33.4 g/dL (30.0-36.0); Mean Corpuscular Volume 95.7 fl (80-94); Mean Platelet Volume 10.9 fL (7.4-10.4); Monocytes # 0.8 10^3/uL (0.2-0.9); Monocytes % 8.4 %; Neutrophils # 5.01 10^3/uL (1.8-7.7); Neutrophils % 52.4 %; Nucleated Red Blood Cells % 0 %; Platelet Count 219 10^3/cmm (130-400); Red Blood Count 4.66 10^6/uL (4.1-5.3); Red Cell Distribution Width 12.3 % (12.1-15.1); White Blood Count 9.5 10^3/uL (4.0-10.0)
[2021-01-07 03:51] LABS: Troponin 5 6HR 7.62 ng/L (0-15); Troponin 5 6HR Delta 0.62 ng/L (0-12)
[2021-01-07 03:54] LABS: Chol HDL Ratio 3.67 mg/dL (1.0-5.00); Cholesterol 132 mg/dL (0-200); HDL Cholesterol 36 mg/dL (60-100); LDL Cholesterol Calculated 81 mg/dL (50-129); LDL HDL Ratio 2.25 RATIO (0.00-3.22); Triglycerides 73 mg/dL (0-150)
[2021-01-07 04:05] LABS: Alanine Aminotransferase 24 U/L (0-41); Albumin Level 4.1 g/dL (3.5-5.2); Alkaline Phosphatase 101 IU/L (40-130); Aspartate Amino Transferase 12 U/L (0-40); Blood Urea Nitrogen 15 mg/dL (6-20); Calcium 9.6 mg/dL (8.5-10.5); Carbon Dioxide 27 mmol/L (22-29); Chloride 105 mmol/L (98-107); Globulin 2.1 g/dL (1.3-4.6); Glucose 111 mg/dL (65-115); Magnesium 2.3 mg/dL (1.7-2.3); Osmolality Calculated 294 mOsm/kg (285-295); Sodium 141 mmol/L (136-145); Thyroid Stimulating Hormone 1.79 uIU/mL (0.27-4.20); Total Bilirubin 0.3 mg/dL (0.15-1.2); Total Protein 6.2 g/dL (6.6-8.7)
--- NOTE | 2021-01-07 04:47 | PC.NURSE ---
i reported low pulse 49 to nurse
[2021-01-07] MEDS: clopidogrel 75 mg Tablet PO (08:33)
[2021-01-07] MEDS: aspirin 81 mg EC Tablet PO (08:33)
[2021-01-07] MEDS: atorvastatin 40 mg Tablet PO (08:33)
--- NOTE | 2021-01-07 12:34 | PC.SOCIAL ---
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
--- NOTE | 2021-01-07 13:37 | P.CONIM_ITS ---
Providers/Reason For Consult Consulting Physician/Specialty*: SEKOU Turner MD/cardiology Reason for Consult*: Patient with unstable angina/ASHD Attending Physician: Sam Bryant MD History of Present Illness History of Present Illness Twin To is a 50 year old male with a history of coronary disease, status post multiple PCI's, apparently has been in his baseline state of health up until yesterday evening when he started having chest pain. He described as a pressure-like pain in the lower substernal area, radiating to the left shoulder and also the left arm. He had some associated shortness of breath and nausea. No palpitation, dizziness or syncopal episode. The intensity of the pain was 8/10. The pain made her lasted for 20 minutes or so. There was no definite precipitating factors. 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 Because of this episode of pain, he decided to come to the hospital emergency room. He is admitted to hospital for further evaluation and management. So far the enzymes are negative for myocardial injury. Patient was admitted to the hospital in May of this year with a syncopal episode. At that time, he had some features of a non-ST relation myocardial infarction. He had a subsequent myocardial perfusion imaging as an outpatient. He was found to have moderate area of fixed and reversible defects in the distribution of the right coronary artery. Patient had a follow-up appointment in the office but for some reason, this was canceled. In March 2020, is admitted to the hospital with features of non-ST elevation myocardial infraction. At that time the cardiac residual revealed the following * Coronary angiography shows right dominance. * The left main is a medium caliber vessel with no significant stenoticlesion. * The left anterior descending artery is a medium caliber vessel whichappears to wrap around the LV apex . After giving off a large septalperforator branch, the artery was found to have a high-grade stenosis ofaround 80 to 90%. The distal artery was found to have mild diffuse intimalirregularities. The first diagonal branch also was found to have minimalintimal irregularities with no significant stenotic lesions. The seconddiagonal branch was found to be a medium to large caliber tortuous vessel withmild diffuse intimal irregularities. * The left circumflex artery is a small to medium caliber nondominant vessel which also was found to have mild diffuse disease. [id number] collaterals were noted filling up the PDA and the PLV branch of the right coronary artery. * Right coronary artery is a medium caliber vessel which appears to be totally occluded after giving of the AV lou branch. He had a PCI of the LAD lesion. He has been doing okay with no significant recurrence of chest pain since May. Pt has a strong family history for premature atherosclerotic heart disease. His father, at age of 42 had a massive heart attack and of the same. His elder brother had 2 heart attacks. Details are not available. Patient is a heavy smoker. He used to smoke 4 pack a day for 30 years or so. He started cutting down on this 4 years ago. Currently he smokes 1-1/2 to 2 pack a day. Denies any alcohol abuse or any other substance abuse. 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 Review of Systems Narrative: CONSTITUTIONAL: No fever or chills. EYES: No blurring of vision or other visual disturbances lately. ENT: No hoarseness of voice, auditory disturbances or sore throat. CARDIOVASCULAR: As mentioned above. RESPIRATORY: No significant cough. GASTROINTESTINAL: No hematemesis or melena. GENITOURINARY: No dysuria or hematuria. INTEGUMENTARY: No skin rashes or history of skin cancer. NEURO: No transient ischemic attacks or amaurosis. PSYCHIATRIC: No history of psychosis or major depression. HEMATOLOGIC: No bleeding disorders or significant anemia. ENDOCRINE: No history of polyuria or polydipsia. MUSCULOSKELETAL: No recent joint pain or swelling. ALLERGY/IMMUNOLOGY: As mentioned above. Meds/Allergies Home Medications and Allergies Home Medications Medication Instructions Recorded Confirmed Last Taken Type Combivent Respimat 1 puff INHALATION Q6H #4 g 03/10/20 01/07/21 Unknown Rx albuterol sulfate [Ventolin HFA] 2 inh INHALATION Q6H PRN #8.5 g 03/10/20 01/07/21 05/17/20 Rx aspirin [Adult Aspirin Regimen] 81 mg PO DAILY@1100 05/18/20 01/07/21 05/18/20 History clopidogrel 75 mg PO DAILY@1100 05/18/20 01/07/21 05/18/20 History atorvastatin 40 mg tablet See Rx Instructions .ROUTE 07/06/21 10/04/21 Unknown Rx .COMPLEX #30 tablet lisinopril 10 mg tablet 5 mg PO DAILY@1100 #45 tab 11/14/20 01/07/21 Unknown Rx isosorbide mononitrate 30 mg PO DAILY 30 Days #30 tab 01/08/21 Unknown Rx Allergies Allergy/AdvReac Type Severity Reaction Status Date / Time meperidine [From Demerol] Allergy ALGY-Rash Verified 09/18/20 08:41 Current Medications Current Medications Generic Name Dose Route Start Last Admin Trade Name Shlomo PRFe Reason Stop Dose Admin Aspirin 81 mg 01/07/21 09:00 01/07/21 08:33 Aspirin 81 Mg Ec Tablet PO 81 mg DAILY NITISH Administration Atorvastatin Calcium 40 mg 01/07/21 09:00 01/07/21 08:33 Atorvastatin 40 Mg Tablet PO 40 mg DAILY NITISH Administration Clopidogrel Bisulfate 75 mg 01/07/21 09:00 01/07/21 08:33 Clopidogrel 75 Mg Tablet PO 75 mg DAILY NITISH Administration PFSH Acute PFSH: Medical History Acute non-ST elevation myocardial infarction (NSTEMI) Atherosclerotic heart disease [place] coronary artery w/angina pectoris Bradycardia COPD (chronic obstructive pulmonary disease) Current smoker Dyslipidemia (high LDL; low HDL) Elevated blood pressure reading Surgical History Amputation finger traumatic, with surgical reattachment of both index fingers History of ankle surgery Previous back surgery Coccyx Family History Father CAD (coronary artery disease) of massive [place] in his 40s Diabetes Stroke Mother Cancer Lung cancer Lung disease Denies family history of Clotting disorder Dementia Chronic kidney disease (CKD) Suicide Anesthesia complication Bleeding disorder Social History Smoking and tobacco status: heavy tobacco smoker cigarettes Packs smoked per day: 1.5 [ Other cigarette details: Previously up to 4ppd, then 2, now down to 1 ] Alcohol intake: never Lives independently: Yes Household members: spouse Marital status: Current occupational status: employed Vitals/I&O/Wt Last Vital Signs Temp 98.6 F 01/07/21 11:53 Pulse 78 01/07/21 11:53 Resp 17 01/07/21 11:53 BP 145/73 01/07/21 11:53 Pulse Ox 98 01/07/21 11:53 01/06/21 01/07/21 01/07/21 22:59 06:59 14:59 Intake Total 240 / 240 Balance 240 / 240 Weight last 48 hrs Weight 330 lb Physical Exam Narrative: EXAM NARRATIVE: GENERAL: The patient is alert and oriented times three. Not in any acute distress. HEENT: No significant pallor, icterus or lymphadenopathy. The pupils are reactant to light. Oral cavity: There are no mucous membrane lesions. Funduscopic examination: The fundus is not visualized NECK: Trachea appears to be central. No masses noted. No JVD or thyromegaly appreciated. No carotid bruit. RESPIRATORY: Chest is symmetrical. No intercostals muscle retraction or any accessory muscle activation. There is no chest wall tenderness. Breath sounds are heard bilaterally. No rales or rhonchi heard. No evidence of any consolidation. BREASTS: Deferred. HEART: The PMI could not be palpated. No palpable precordial events. S1 and S2 are normal. No S3 or S4 heard. No pericardial rub or any click heard. ABDOMEN: No vessel pulsations or distention. No tenderness. No organomegaly appreciated. No abdominal bruit. Bowel sounds are normally heard. : Deferred. RECTAL: Deferred. LYMPHATIC: No lymphadenopathy noted in the neck or groin. EXTREMITIES: No edema or cyanosis. No clubbing. The pulses are symmetrical bilaterally. The radial, femoral, dorsalis pedis and the posterior tibial pulses are palpated and found to be in good volume and amplitude. MUSCULOSKELETAL: No acute joint deformities or swelling. SKIN: Extensive tattoo markings in the upper extremities and trunk NEUROPSYCHIATRIC: The patient is alert and oriented x3. Appears to be in a good mood. The higher functions are grossly within normal limits. No tremors or rigidity noted. Data Labs: Other Labs: Laboratory Last Values WBC 9.5 10^3/uL (4.0- 10.0) 01/07/21 03:11 RBC 4.66 10^6/uL (4.1 -5.3) 01/07/21 03:11 Hgb 14.9 g/dL (11.7-1 6.6) 01/07/21 03:11 Hct 44.6 % (42.0-52.0 ) 01/07/21 03:11 MCV 95.7 fl (80-94) H 01/07/21 03:11 MCH 32.0 pg (28.0-34. 0) 01/07/21 03:11 MCHC 33.4 g/dL (30.0-3 6.0) 01/07/21 03:11 RDW 12.3 % (12.1-15.1 ) 01/07/21 03:11 Plt Count 219 10^3/cmm (130 -400) 01/07/21 03:11 MPV 10.9 fL (7.4-10.4 ) H 01/07/21 03:11 Neut % (Auto) 52.4 % 01/07/21 03:11 Lymph % (Auto) 33.8 % 01/07/21 03:11 [place] % (Auto) 8.4 % 01/07/21 03:11 Eos % (Auto) 3.9 % 01/07/21 03:11 Baso % (Auto) 1.3 % 01/07/21 03:11 Neut # (Auto) 5.01 10^3/uL (1.8 -7.7) 01/07/21 03:11 Lymph # (Auto) 3.2 10^3/uL (0.8- 4.8) 01/07/21 03:11 [place] # (Auto) 0.8 10^3/uL (0.2- 0.9) 01/07/21 03:11 Eos # (Auto) 0.4 10^3/uL (0.0- 0.8) 01/07/21 03:11 Baso # (Auto) 0.1 10^3/uL (0.0- 0.1) 01/07/21 03:11 Nucleated RBC % (a uto) 0 % 01/07/21 03:11 Nucleated RBCs # 0.0 /100WBC 01/07/21 03:11 Sodium 141 mmol/L (136-1 45) 01/07/21 03:11 Potassium 4.0 mmol/L (3.5-5 .1) 01/07/21 03:11 Chloride 105 mmol/L (98-10 7) 01/07/21 03:11 Carbon Dioxide 27 mmol/L (22-29) 01/07/21 03:11 Anion Gap 13.0 (5-19) 01/07/21 03:11 BUN 15 mg/dL (6-20) 01/07/21 03:11 Creatinine 0.9 mg/dL (0.7-1. 2) 01/07/21 03:11 GFR Calculation 89.0 mL/min (90-1 30) L 01/07/21 03:11 Glucose 111 mg/dL (65-115 ) 01/07/21 03:11 Calculated Osmolal ity 294 mOsm/kg (285- 295) 01/07/21 03:11 Calcium 9.6 mg/dL (8.5-10 .5) 01/07/21 03:11 Magnesium 2.3 mg/dL (1.7-2. 3) 01/07/21 03:11 Total Bilirubin 0.3 mg/dL (0.15-1 .2) 01/07/21 03:11 AST 12 U/L (0-40) 01/07/21 03:11 ALT 24 U/L (0-41) 01/07/21 03:11 Alkaline Phosphata se 101 IU/L (40-130) 01/07/21 03:11 Troponin T Baselin e 7 ng/L (0-15) 01/06/21 21:05 Troponin T 120 Min erasmo 6.68 ng/L (0-15) 01/06/21 22:47 Delta Troponin T -0.32 ABS# (0-10) L 01/06/21 22:47 Troponin T Hi Sens 6Hr 7.62 ng/L (0-15) 01/07/21 03:11 Troponin T Hi Sens 6Hr Delta 0.62 ng/L (0-12) 01/07/21 03:11 Total Protein 6.2 g/dL (6.6-8.7 ) L 01/07/21 03:11 Albumin 4.1 g/dL (3.5-5.2 ) 01/07/21 03:11 Globulin 2.1 g/dL (1.3-4.6 ) 01/07/21 03:11 Triglycerides 73 mg/dL (0-150) 01/07/21 03:11 Cholesterol 132 mg/dL (0-200) 01/07/21 03:11 LDL Cholesterol, C alc 81 mg/dL (50-129) 01/07/21 03:11 HDL Cholesterol 36 mg/dL (60-100) L 01/07/21 03:11 LDL/HDL Ratio 2.25 RATIO (0.00- 3.22) 01/07/21 03:11 Cholesterol/HDL Ra vidhya 3.67 mg/dL (1.0-5 .00) 01/07/21 03:11 Procalcitonin 0.05 ng/mL (0-0.5 ) 01/06/21 22:47 TSH 1.79 uIU/mL (0.27 -4.20) 01/07/21 03:11 EKG^: EKG 1: My Interpretation: The EKG showed sinus bradycardia with a rate of 52 bpm. Occasional PVCs. No acute ST-T changes. A&P Assessment and plan (1) Atherosclerotic heart disease of [place] coronary artery with unstable angina pectoris: Currently the patient is chest pain-free. No significant EKG changes. Hemodynamically seems to be stable. No evidence of myocardial injury. He may be kept on the current medications including Plavix, aspirin and subcu Lovenox. I may Rehan to be an echocardiogram to evaluate LV function. If there is no new wall motion normalities, the options are optimizing the medical treatment versus doing a repeat cardiac catheterization to reevaluate the coronary status. This was discussed in detail with the patient. After looking at the limited 2D echocardiogram, further recommendations will be made Status: Acute (2) Dyslipidemia (high LDL; low HDL): May continue on the current medications. Status: Acute (3) HTN (hypertension): Currently the blood pressure is a stage II. Need to optimize the antihypertensive medications. Status: Acute Qualifiers: Hypertension type: essential hypertension Qualified Code(s): I10 - Essential (primary) hypertension (4) Sleep apnea: Patient on CPAP. Status: Acute Qualifiers: Sleep apnea type: other type Qualified Code(s): G47.39 - Other sleep apnea (5) Current smoker: Once again strongly advised to quit smoking. Status: Acute Additional A&P Information After reviewing the above and also based on the patient's clinical progress, further recommendations will be made. 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
--- NOTE | 2021-01-07 14:09 | PC.RESP ---
Sent Smoking Cessation and Pulmonary Rehab information
--- NOTE | 2021-01-07 16:06 | PM.PN ---
Subjective Subjective: Interval history: Admitted last night. Lab appreciated. Denies any further chest pain today. Complaining of chest pain prior to admission which lasted longer for than his baseline. He usually states he would have pain on exertion and would go away in few minutes after resting but yesterday the pain persisted. States pain was in left precordium rating down to left arm with tingling sensation in fingers. Denies any further chest pain. Denies any nausea vomiting, headache. Has remained hemodynamically stable afebrile. Currently on room air. Vitals/I&O/Wt Last Vital Signs Temp 98.4 F 01/07/21 15:51 Pulse 48 L 01/07/21 15:51 Resp 17 01/07/21 15:51 BP 152/84 01/07/21 15:51 Pulse Ox 95 01/07/21 15:51 01/07/21 01/07/21 01/07/21 06:59 14:59 22:59 Intake Total 240 / 240 Balance 240 / 240 Weight last 48 hrs Weight 149.685 kg Data : 01/07/21 03:11 01/07/21 03:11 A&P Assessment and plan (1) Atherosclerotic heart disease [place] coronary artery w/angina pectoris: Status: Acute Qualifiers: [place] vs. transplanted heart: [place] heart Qualified Code(s): I25.119 - Atherosclerotic heart disease of [place] coronary artery with unspecified angina pectoris (2) Benign essential HTN: Resume home regimen Status: Acute (3) COPD (chronic obstructive pulmonary disease): Duoneb q6hr PRN Status: Acute (4) Obesity (BMI 30.0-34.9): Status: Acute (5) Positive cardiac stress test: Status: Acute Additional A&P Information Unstable angina: History of CAD: Post PCI to LAD/complete RCA occlusion. History of positive stress test in May 2020 with small area of fixed perfusion defect in the mid to basal inferior wall which showed medium sized area of moderate to severe reversibility suggestive of a small area of old MS surrounded by moderate to severe medium sized area of latisha-infarct ischemia in the RCA territory. Continue with aspirin, Plavix, statin. Troponin cycles negative. EKG appreciated. Check HbA1c, lipid panel. Hold off on beta-blockers given bradycardia. We will consult cardiology for possible cardiac angiogram and intervention. Full dose Lovenox 1 mg/kg body weight every 12 hourly. Hypertension: Goal blood pressure less than 140/90 mmHg. Restart home dose of lisinopril. We will up titrate accordingly. Full code. Cardiac diet. Lovenox for DVT prophylaxis. Attestations Medical Necessity Statement*: Twin To is being changed to inpatient status as stay will now exceed 2 midnights. Ongoing hospital care is necessary for unstable angina in setting of positive stress test with history of CAD post stenting Time Spent in Patient Care: Greater than 35 minutes (>than 50% of time spent in counselling and/or direct pt care on unit). Coding Level of Care Code Acute Care Coordination Manager for Chg Fwd Diagnoses Atherosclerotic heart disease [place] coronary artery w/angina pectoris I25.119 [place] vs. transplanted heart: [place] heart Benign essential HTN I10 COPD (chronic obstructive pulmonary disease) J44.9 Obesity (BMI 30.0-34.9) E66.9 Positive cardiac stress test R94.39
[2021-01-07] MEDS: enoxaparin 80 mg/0.8 mL Syringe 150 MG SUBCUT (17:26)
[2021-01-08] VITALS: BP 156/80; PULSE 49; RESP 19; TEMP 36.7; O2SAT 96
[2021-01-08 04:00] VITALS: BP 157/80; PULSE 58; RESP 17; TEMP 36.7; O2SAT 96
[2021-01-08] MEDS: enoxaparin 80 mg/0.8 mL Syringe 150 MG SUBCUT (04:52)
[2021-01-08 05:54] VITALS: PULSE 58
[2021-01-08 05:56] LABS: Basophils # 0.1 10^3/uL (0.0-0.1); Basophils % 1.5 %; Eosinophils # 0.3 10^3/uL (0.0-0.8); Eosinophils % 3.6 %; Hematocrit 47.7 % (42.0-52.0); Hemoglobin 15.9 g/dL (11.7-16.6); Lymphocytes # 3.1 10^3/uL (0.8-4.8); Lymphocytes % 33.5 %; Mean Corpuscular HGB Conc 33.3 g/dL (30.0-36.0); Mean Corpuscular Hemoglobin 31.9 pg (28.0-34.0); Mean Corpuscular Volume 95.6 fl (80-94); Mean Platelet Volume 11.1 fL (7.4-10.4); Monocytes # 0.7 10^3/uL (0.2-0.9); Monocytes % 7.8 %; Neutrophils # 4.85 10^3/uL (1.8-7.7); Neutrophils % 53.4 %; Nucleated Red Blood Cells % 0 %; Platelet Count 243 10^3/cmm (130-400); Red Blood Count 4.99 10^6/uL (4.1-5.3); Red Cell Distribution Width 12.2 % (12.1-15.1); White Blood Count 9.1 10^3/uL (4.0-10.0)
[2021-01-08 06:31] LABS: Estmated Average Glucose 117; Hemoglobin A1C 5.7 % (4.0-6.0)
[2021-01-08 06:32] LABS: Alanine Aminotransferase 25 U/L (0-41); Alkaline Phosphatase 101 IU/L (40-130); Anion Gap 12.8 (5-19); Aspartate Amino Transferase 14 U/L (0-40); Blood Urea Nitrogen 17 mg/dL (6-20); Calcium 9.5 mg/dL (8.5-10.5); Carbon Dioxide 26 mmol/L (22-29); Chloride 103 mmol/L (98-107); Creatinine Clr Calc Pharmacy 131.5643; Globulin 2.4 g/dL (1.3-4.6); Glomerular Filtration Rate 78.8 mL/min (90-130); Glucose 99 mg/dL (65-115); Osmolality Calculated 288 mOsm/kg (285-295); Potassium 3.8 mmol/L (3.5-5.1); Sodium 138 mmol/L (136-145); Total Bilirubin 0.4 mg/dL (0.15-1.2); Total Protein 6.4 g/dL (6.6-8.7)
[2021-01-08 08:00] VITALS: BP 131/75; PULSE 52; RESP 18; TEMP 36.8; O2SAT 97
[2021-01-08] MEDS: isosorbide mononitrate ER 30 mg Tablet PO (08:47)
[2021-01-08] MEDS: atorvastatin 40 mg Tablet PO (08:47)
[2021-01-08] MEDS: aspirin 81 mg EC Tablet PO (08:47)
[2021-01-08] MEDS: clopidogrel 75 mg Tablet PO (08:47)
--- NOTE | 2021-01-08 10:07 | PC.CHAP ---
Pastoral Care Encounter/Spiritual Assessment Type of Contact [] Declined food and beverage server visit [] Patient/Family/Request visit [] Outpatient visit [] Follow-up visit [] Physician referral [] Code/Alert [] Routine visit [] Staff referral [] Actively dying [] Patient sleeping [] Family support [] [] Out of room [] Palliative care [] [x] Receiving care in room [] Pre-surgical visit [] Trauma [] Long length of stay [] ICU visit [] Other: Relational/Emotional Strength [] Patient feels connected with others/family/visitors/staff [] Distress [] Loneliness/isolation [] Abandonment Spirituality of Patient [] Person of [place] [] Attends Islam of their [place] [] Believes in Prayer [] Reads Bible or Sabianism materials [] There are Spiritual issues to be addressed Piping Designer Interventions [] Prayer [] Active listening [] Non-anxious presence [] Spiritual/emotional support [] Crisis/trauma care [] Spiritual counseling [] Bereavement support [] Provided bereavement packet [] Provided Bible/devotional materials [] Provided toy/stuffed animal, coloring book to patient or family member [] Provided Communion [] Anointing/[place] [] Salvation [] Completed spiritual assessment [] Other: Impact on Illness or Injury [] Angry [] Fearful [] Anxious [] Often cries [] Exhaustion [] Unable to work [] Unable to attend gnosticism [] Unable to walk/stand [] Unable to read [] Unable to drive [] Unable to eat/drink [] Unable to sleep [] Unable to be with family [] Patient intubated [] Other: Summary Time spent with patient
[2021-01-08 10:44] VITALS: PULSE 58; O2SAT 96
--- NOTE | 2021-01-08 10:44 | PM.DCS ---
Discharge Providers Date of Admission: 01/07/21 16:08 Date of Discharge: January 08, 2021 Attending Provider at Admission: Maxine Garcia Attending Provider at Discharge: Sam Bryant MD Consults: Cardiology: Dr. Turner Diagnoses at Discharge Discharge Diagnosis (1) Atherosclerotic heart disease of [place] coronary artery with unstable angina pectoris: Status: Acute (2) Dyslipidemia (high LDL; low HDL): Status: Acute (3) HTN (hypertension): Status: Acute Qualifiers: Hypertension type: essential hypertension Qualified Code(s): I10 - Essential (primary) hypertension (4) Sleep apnea: Status: Acute Qualifiers: Sleep apnea type: other type Qualified Code(s): G47.39 - Other sleep apnea (5) Current smoker: Status: Acute Reason for Visit Reason for Visit: cp Hospital Course Hospital Course Twin To is a 50 year old male with a history of coronary disease, status post multiple PCI's, apparently has been in his baseline state of health up until January 06 evening when he started having chest pain. He described as a pressure-like pain in the lower substernal area, radiating to the left shoulder and also the left arm. He had some associated shortness of breath and nausea. No palpitation, dizziness or syncopal episode. The intensity of the pain was 8/10. The pain made her lasted for 20 minutes or so. There was no definite precipitating factors. 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 Because of this episode of pain, he decided to come to the hospital emergency room. He is admitted to hospital for further evaluation and management. So far the enzymes are negative for myocardial injury. Patient was admitted to the hospital in May of this year with a syncopal episode. At that time, he had some features of a non-ST relation myocardial infarction. He had a subsequent myocardial perfusion imaging as an outpatient. He was found to have moderate area of fixed and reversible defects in the distribution of the right coronary artery. Patient had a follow-up appointment in the office but for some reason, this was canceled. In March 2020, is admitted to the hospital with features of non-ST elevation myocardial infraction. At that time the cardiac residual revealed the following * Coronary angiography shows right dominance. * The left main is a medium caliber vessel with no significant stenoticlesion. * The left anterior descending artery is a medium caliber vessel whichappears to wrap around the LV apex . After giving off a large septalperforator branch, the artery was found to have a high-grade stenosis ofaround 80 to 90%. The distal artery was found to have mild diffuse intimalirregularities. The first diagonal branch also was found to have minimalintimal irregularities with no significant stenotic lesions. The seconddiagonal branch was found to be a medium to large caliber tortuous vessel withmild diffuse intimal irregularities. * The left circumflex artery is a small to medium caliber nondominant vessel which also was found to have mild diffuse disease. [id number] collaterals were noted filling up the PDA and the PLV branch of the right coronary artery. * Right coronary artery is a medium caliber vessel which appears to be totally occluded after giving of the AV lou branch. He had a PCI of the LAD lesion. He has been doing okay with no significant recurrence of chest pain since May. Pt has a strong family history for premature atherosclerotic heart disease. His father, at age of 42 had a massive heart attack and of the same. His elder brother had 2 heart attacks. Details are not available. Patient is a heavy smoker. He used to smoke 4 pack a day for 30 years or so. He started cutting down on this 4 years ago. Currently he smokes 1-1/2 to 2 pack a day. Denies any alcohol abuse or any other substance abuse. 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 Patient was admitted to the hospital for further management of unstable angina in setting of positive stress test. He had cardiac enzymes remain negative. Echocardiogram was done which showed improvement in his ejection fraction. Cardiology was consulted. Because patient did not have any further chest pain with improvement in echocardiogram and negative cardiac enzymes after discussion with the patient decision was made to manage medically with advised to follow-up as an outpatient within next 1 month. It was advised if patient has further chest pain on optimization of medication to present to the ER for possible cardiac angiogram. Patient verbalized understanding. During hospitalization he was found to have bradycardia for which his home dose of metoprolol was withheld. Imdur has been added to his medication list. Physical Exam Narrative: EXAM NARRATIVE: General : alert awake and oriented x3, NA HEENT: Grossly unremarkable CVS; NSR CHEST: Nonlabored respiration Abd Soft, NT, ND Ext, No edema Discharge Data Data Completed and Pending: Completed Studies During Hospitalization Category Date Time Status XR chest 1V jc ble [id number] Stat Exams 01/06/21 21:06 Completed CV. echo limited [id number] Routine Ultrasound 01/08/21 22:37 Completed Labs from last 24 hours 01/08/21 01/08/21 01/08/21 05:18 05:18 05:18 WBC 9.1 RBC 4.99 Hgb 15.9 Hct 47.7 MCV 95.6 H MCH 31.9 MCHC 33.3 RDW 12.2 Plt Count 243 MPV 11.1 H Neut % (Auto) 53.4 Lymph % (Auto) 33.5 [place] % (Auto) 7.8 Eos % (Auto) 3.6 Baso % (Auto) 1.5 Neut # (Auto) 4.85 Lymph # (Auto) 3.1 [place] # (Auto) 0.7 Eos # (Auto) 0.3 Baso # (Auto) 0.1 Nucleated RBC % (a uto) 0 Nucleated RBCs # 0.0 Sodium 138 Potassium 3.8 Chloride 103 Carbon Dioxide 26 Anion Gap 12.8 BUN 17 Creatinine 1.0 GFR Calculation 78.8 L Glucose 99 Estimat Average Gl ucose 117 Hemoglobin A1c 5.7 Calculated Osmolal ity 288 Calcium 9.5 Total Bilirubin 0.4 AST 14 ALT 25 Alkaline Phosphata se 101 Total Protein 6.4 L Albumin 4.0 Globulin 2.4 Addt'l Data from Hospital Stay: Laboratory Results WBC 9.1 10^3/uL (4.0- 10.0) 01/08/21 05:18 RBC 4.99 10^6/uL (4.1 -5.3) 01/08/21 05:18 Hgb 15.9 g/dL (11.7-1 6.6) 01/08/21 05:18 Hct 47.7 % (42.0-52.0 ) 01/08/21 05:18 MCV 95.6 fl (80-94) H 01/08/21 05:18 MCH 31.9 pg (28.0-34. 0) 01/08/21 05:18 MCHC 33.3 g/dL (30.0-3 6.0) 01/08/21 05:18 RDW 12.2 % (12.1-15.1 ) 01/08/21 05:18 Plt Count 243 10^3/cmm (130 -400) 01/08/21 05:18 MPV 11.1 fL (7.4-10.4 ) H 01/08/21 05:18 Neut % (Auto) 53.4 % 01/08/21 05:18 Lymph % (Auto) 33.5 % 01/08/21 05:18 [place] % (Auto) 7.8 % 01/08/21 05:18 Eos % (Auto) 3.6 % 01/08/21 05:18 Baso % (Auto) 1.5 % 01/08/21 05:18 Neut # (Auto) 4.85 10^3/uL (1.8 -7.7) 01/08/21 05:18 Lymph # (Auto) 3.1 10^3/uL (0.8- 4.8) 01/08/21 05:18 [place] # (Auto) 0.7 10^3/uL (0.2- 0.9) 01/08/21 05:18 Eos # (Auto) 0.3 10^3/uL (0.0- 0.8) 01/08/21 05:18 Baso # (Auto) 0.1 10^3/uL (0.0- 0.1) 01/08/21 05:18 Nucleated RBC % (a uto) 0 % 01/08/21 05:18 Nucleated RBCs # 0.0 /100WBC 01/08/21 05:18 Sodium 138 mmol/L (136-1 45) 01/08/21 05:18 Potassium 3.8 mmol/L (3.5-5 .1) 01/08/21 05:18 Chloride 103 mmol/L (98-10 7) 01/08/21 05:18 Carbon Dioxide 26 mmol/L (22-29) 01/08/21 05:18 Anion Gap 12.8 (5-19) 01/08/21 05:18 BUN 17 mg/dL (6-20) 01/08/21 05:18 Creatinine 1.0 mg/dL (0.7-1. 2) 01/08/21 05:18 GFR Calculation 78.8 mL/min (90-1 30) L 01/08/21 05:18 Glucose 99 mg/dL (65-115) 01/08/21 05:18 Estimat Average Gl ucose 117 01/08/21 05:18 Hemoglobin A1c 5.7 % (4.0-6.0) 01/08/21 05:18 Calculated Osmolal ity 288 mOsm/kg (285- 295) 01/08/21 05:18 Calcium 9.5 mg/dL (8.5-10 .5) 01/08/21 05:18 Magnesium 2.3 mg/dL (1.7-2. 3) 01/07/21 03:11 Total Bilirubin 0.4 mg/dL (0.15-1 .2) 01/08/21 05:18 AST 14 U/L (0-40) 01/08/21 05:18 ALT 25 U/L (0-41) 01/08/21 05:18 Alkaline Phosphata se 101 IU/L (40-130) 01/08/21 05:18 Troponin T Baselin e 7 ng/L (0-15) 01/06/21 21:05 Troponin T 120 Min erasmo 6.68 ng/L (0-15) 01/06/21 22:47 Delta Troponin T -0.32 ABS# (0-10) L 01/06/21 22:47 Troponin T Hi Sens 6Hr 7.62 ng/L (0-15) 01/07/21 03:11 Troponin T Hi Sens 6Hr Delta 0.62 ng/L (0-12) 01/07/21 03:11 Total Protein 6.4 g/dL (6.6-8.7 ) L 01/08/21 05:18 Albumin 4.0 g/dL (3.5-5.2 ) 01/08/21 05:18 Globulin 2.4 g/dL (1.3-4.6 ) 01/08/21 05:18 Triglycerides 73 mg/dL (0-150) 01/07/21 03:11 Cholesterol 132 mg/dL (0-200) 01/07/21 03:11 LDL Cholesterol, C alc 81 mg/dL (50-129) 01/07/21 03:11 HDL Cholesterol 36 mg/dL (60-100) L 01/07/21 03:11 LDL/HDL Ratio 2.25 RATIO (0.00- 3.22) 01/07/21 03:11 Cholesterol/HDL Ra vidhya 3.67 mg/dL (1.0-5 .00) 01/07/21 03:11 Procalcitonin 0.05 ng/mL (0-0.5 ) 01/06/21 22:47 TSH 1.79 uIU/mL (0.27 -4.20) 01/07/21 03:11 Impressions Chest X-Ray 01/06/21 21:06 IMPRESSION: No acute findings. Limited echo cardiogram: CONCLUSIONS Normal LV size and ejection fraction of around 60%. Mild concentric left ventricular hypertrophy. Mild hypokinesia of the inferobasal segment. Normal cardiac chamber sizes. No obvious valvular abnormalities There is no pericardial effusion. Compared to the study from 05/19/2020, there is improvement in the LV ejection fraction and wall motion abnormalities Dr Emmanuel Turner MD [facility] (Electronically Signed) Final Date: 08 January 2021 08:46 Vitals: Last Vital Signs Temp 98.3 F 01/08/21 08:00 Pulse 52 L 01/08/21 08:00 Resp 18 01/08/21 08:00 BP 131/75 01/08/21 08:00 Pulse Ox 97 01/08/21 08:00 Discharge Plan Discharge Patient Disposition: Home Condition: Stable Prescriptions: New isosorbide mononitrate 30 mg Tablet Extended Release 24 Hr 30 mg PO DAILY 30 Days Qty: 30 RF: 0 Continued atorvastatin 40 mg tablet See Rx Instructions .ROUTE .COMPLEX Qty: 30 RF: 6 lisinopril 10 mg tablet 5 mg PO DAILY@1100 Qty: 45 RF: 3 Combivent Respimat 20-100 mcg/actuation mist 1 puff inhalation Q6H Qty: 4 RF: 0 albuterol sulfate [Ventolin HFA] 90 mcg/actuation HFA aerosol inhaler 2 inh inhalation Q6H PRN (Reason: shortness of breath or wheezing) Qty: 8.5 RF: 0 clopidogrel 75 mg tablet 75 mg PO DAILY@1100 RF: 0 aspirin [Adult Aspirin Regimen] 81 mg tablet,delayed release (DR/EC) 81 mg PO DAILY@1100 RF: 0 Discontinued metoprolol succinate 25 mg capsule,sprinkle,ER 24hr 12.5 mg PO DAILY@1100 RF: 0 Discharge Orders: Discharge Order (Routine); Ordered 01/08/21 Ordered By: Sam Bryant Referrals: Emmanuel Turner MD [Physician] - 1 month Discharge Diet: Cardiac Discharge Activity: Resume usual activity Patient Instructions: Opioid Safety Activity Restrictions/Additional Instructions: Please follow-up with cardiology within next 1 month. Metoprolol has been stopped. Imdur has been added to your medication list. Please follow-up with your primary care provider within next 10 days. Discharge Attestations Time Spent in Discharge Care*: greater than 30 min Specific Discharge Activities: educating patient, discussing with pcp/other providers, discussing with registered nurse hh case manager/social workers/dc planners, documenting/other paperwork and evaluating patient/reviewing data Time Spent in Smoking Cessation: more than 10 minutes Status at Discharge: Cognitive status at discharge: cognitively intact, Behavioral status at discharge: cooperative, Functional status at discharge: independent ambulation Overall status at discharge: patient is back to baseline Quality Metrics Clinical Quality Measures During this hospital stay, did patient experience: None Coding Level of Care Code Acute Chg FW DC note Diagnoses Atherosclerotic heart disease of [place] coronary artery with unstable angina pectoris I25.110 Dyslipidemia (high LDL; low HDL) E78.5 HTN (hypertension) I10 Hypertension type: essential hypertension Sleep apnea G47.39 Sleep apnea type: other type Current smoker F17.200
[2021-01-08 12:50] VITALS: PULSE 58; O2SAT 96
--- NOTE | 2021-01-08 13:27 | P.PN_ITS ---
Subjective Subjective: Interval history: Patient is feeling okay with no recurrence of chest pain. No arrhythmias on the monitor. Vital signs remained stable. He had an echocardiogram which revealed a normal LV size ejection fraction of around 60%. Mild hypokinesia of the basal inferior wall segment. Compared to the previous echo, there is some improvement in the LV ejection fraction. Medications: Reviewed: Yes Medication Review Details: Current Medications Acetaminophen (Acetaminophen 325 Mg Tablet) 650 mg PO Q6H PRN PRN Reason: Mild/Mod Pain Or Temp >/= 101 Hydrocodone Bitart/Acetaminophen (Hydrocodone-Acetaminophen 5-325 Mg Tablet) 1 tab PO Q4H PRN PRN Reason: MODERATE TO SEVERE PAIN Aspirin (Aspirin 81 Mg Ec Tablet) 81 mg PO DAILY [facility] Last Admin: 01/08/21 08:47 Dose: 81 mg Documented by: Atorvastatin Calcium (Atorvastatin 40 Mg Tablet) 40 mg PO DAILY [facility] Last Admin: 01/08/21 08:47 Dose: 40 mg Documented by: Clopidogrel Bisulfate (Clopidogrel 75 Mg Tablet) 75 mg PO DAILY [facility] Last Admin: 01/08/21 08:47 Dose: 75 mg Documented by: Isosorbide Mononitrate (Isosorbide Mononitrate Er 30 Mg Tablet) 30 mg PO DAILY [facility] Last Admin: 01/08/21 08:47 Dose: 30 mg Documented by: Lisinopril (Lisinopril 5 Mg Tablet) 5 mg PO DAILY@1100 [facility] Morphine Sulfate (Morphine 4 Mg/Ml Sdv 1 Ml) 2 mg IVP Q4H PRN PRN Reason: SEVERE PAIN Nitroglycerin (Nitroglycerin 0.4 Mg Sublingual Tablet) 0.4 mg SUBLINGUAL Q5M PRN PRN Reason: CHEST PAIN Ondansetron HCl (Ondansetron 2 Mg/Ml Sdv 2 Ml) 4 mg IVP Q8H PRN PRN Reason: vomiting, or N/V if npo Vitals/I&O/Wt Last Vital Signs Temp 98.3 F 01/08/21 08:00 Pulse 58 L 01/08/21 12:50 Resp 18 01/08/21 08:00 BP 131/75 01/08/21 08:00 Pulse Ox 96 01/08/21 12:50 01/07/21 01/08/21 01/08/21 22:59 06:59 14:59 Intake Total 240 / 480 600 / 1080 600 / 600 Output Total 700 / 700 150 / 850 Balance -460 / -220 450 / 230 600 / 600 Weight last 48 hrs Weight 330 lb Physical Exam Narrative: EXAM NARRATIVE: GENERAL: The patient is alert and oriented times three. Not in any acute distress. HEENT: No significant pallor, icterus or lymphadenopathy. The pupils are symmetrical. NECK: Trachea appears to be central. No masses noted. No JVD or thyromegaly appreciated. No carotid bruit. RESPIRATORY: Chest is symmetrical. No intercostals muscle retraction or any accessory muscle activation. There is no chest wall tenderness. Breath sounds are heard bilaterally. No rales or rhonchi heard. No evidence of any consolidation. BREASTS: Deferred. HEART: The PMI could not be palpated. No palpable precordial events. S1 and S2 are normal. No S3 or S4 heard. No pericardial rub or any click heard. ABDOMEN: No vessel pulsations or distention. No tenderness. No organomegaly appreciated. No abdominal bruit. Bowel sounds are normally heard. : Deferred. RECTAL: Deferred. LYMPHATIC: No lymphadenopathy noted in the neck or groin. EXTREMITIES: No edema or cyanosis MUSCULOSKELETAL: No acute joint deformities or swelling. SKIN: Extensive tattoo markings in the upper extremities and trunk NEUROPSYCHIATRIC: The patient is alert and oriented x3. No focal motor deficits. Data : 01/08/21 05:18 01/08/21 05:18 Other Labs: Laboratory Last Values WBC 9.1 10^3/uL (4.0-10.0) 01/08/21 05:18 RBC 4.99 10^6/uL (4.1-5.3) 01/08/21 05:18 Hgb 15.9 g/dL (11.7-16.6) 01/08/21 05:18 Hct 47.7 % (42.0-52.0) 01/08/21 05:18 MCV 95.6 fl (80-94) H 01/08/21 05:18 MCH 31.9 pg (28.0-34.0) 01/08/21 05:18 MCHC 33.3 g/dL (30.0-36.0) 01/08/21 05:18 RDW 12.2 % (12.1-15.1) 01/08/21 05:18 Plt Count 243 10^3/cmm (130-400) 01/08/21 05:18 MPV 11.1 fL (7.4-10.4) H 01/08/21 05:18 Neut % (Auto) 53.4 % 01/08/21 05:18 Lymph % (Auto) 33.5 % 01/08/21 05:18 [place] % (Auto) 7.8 % 01/08/21 05:18 Eos % (Auto) 3.6 % 01/08/21 05:18 Baso % (Auto) 1.5 % 01/08/21 05:18 Neut # (Auto) 4.85 10^3/uL (1.8-7.7) 01/08/21 05:18 Lymph # (Auto) 3.1 10^3/uL (0.8-4.8) 01/08/21 05:18 [place] # (Auto) 0.7 10^3/uL (0.2-0.9) 01/08/21 05:18 Eos # (Auto) 0.3 10^3/uL (0.0-0.8) 01/08/21 05:18 Baso # (Auto) 0.1 10^3/uL (0.0-0.1) 01/08/21 05:18 Nucleated RBC % (auto) 0 % 01/08/21 05:18 Nucleated RBCs # 0.0 /100WBC 01/08/21 05:18 Sodium 138 mmol/L (136-145) 01/08/21 05:18 Potassium 3.8 mmol/L (3.5-5.1) 01/08/21 05:18 Chloride 103 mmol/L (98-107) 01/08/21 05:18 Carbon Dioxide 26 mmol/L (22-29) 01/08/21 05:18 Anion Gap 12.8 (5-19) 01/08/21 05:18 BUN 17 mg/dL (6-20) 01/08/21 05:18 Creatinine 1.0 mg/dL (0.7-1.2) 01/08/21 05:18 GFR Calculation 78.8 mL/min (90-130) L 01/08/21 05:18 Glucose 99 mg/dL (65-115) 01/08/21 05:18 Estimat Average Glucose 117 01/08/21 05:18 Hemoglobin A1c 5.7 % (4.0-6.0) 01/08/21 05:18 Calculated Osmolality 288 mOsm/kg (285-295) 01/08/21 05:18 Calcium 9.5 mg/dL (8.5-10.5) 01/08/21 05:18 Magnesium 2.3 mg/dL (1.7-2.3) 01/07/21 03:11 Total Bilirubin 0.4 mg/dL (0.15-1.2) 01/08/21 05:18 AST 14 U/L (0-40) 01/08/21 05:18 ALT 25 U/L (0-41) 01/08/21 05:18 Alkaline Phosphatase 101 IU/L (40-130) 01/08/21 05:18 Troponin T Baseline 7 ng/L (0-15) 01/06/21 21:05 Troponin T 120 Minute 6.68 ng/L (0-15) 01/06/21 22:47 Delta Troponin T -0.32 ABS# (0-10) L 01/06/21 22:47 Troponin T Hi Sens 6Hr 7.62 ng/L (0-15) 01/07/21 03:11 Troponin T Hi Sens 6Hr Delta 0.62 ng/L (0-12) 01/07/21 03:11 Total Protein 6.4 g/dL (6.6-8.7) L 01/08/21 05:18 Albumin 4.0 g/dL (3.5-5.2) 01/08/21 05:18 Globulin 2.4 g/dL (1.3-4.6) 01/08/21 05:18 Triglycerides 73 mg/dL (0-150) 01/07/21 03:11 Cholesterol 132 mg/dL (0-200) 01/07/21 03:11 LDL Cholesterol, Calc 81 mg/dL (50-129) 01/07/21 03:11 HDL Cholesterol 36 mg/dL (60-100) L 01/07/21 03:11 LDL/HDL Ratio 2.25 RATIO (0.00-3.22) 01/07/21 03:11 Cholesterol/HDL Ratio 3.67 mg/dL (1.0-5.00) 01/07/21 03:11 Procalcitonin 0.05 ng/mL (0-0.5) 01/06/21 22:47 TSH 1.79 uIU/mL (0.27-4.20) 01/07/21 03:11 A&P Assessment and plan (1) Atherosclerotic heart disease of [place] coronary artery with unstable angina pectoris: Patient has no evidence of ischemia based on the EKG or echocardiogram. There was no evidence of medical injury based on the troponin T. Once again I discussed the patient about the options. It was decided to continue the medical treatment. He is tolerating isosorbide mononitrate so far well. May continue on this current medications. Status: Acute (2) Dyslipidemia (high LDL; low HDL): May continue on the current medications. Status: Acute (3) HTN (hypertension): Her blood pressure seems to be getting under control. May continue on the current medications. Status: Acute Qualifiers: Hypertension type: essential hypertension Qualified Code(s): I10 - Essential (primary) hypertension (4) Sleep apnea: Continue on the current management. Status: Acute Qualifiers: Sleep apnea type: other type Qualified Code(s): G47.39 - Other sleep apnea (5) Current smoker: Once again strongly advised to quit smoking. Patient is planning to. Status: Acute Additional A&P Information If the patient continues remain stable, may be discharged home from a cardiac standpoint. If he has any recurrence of chest pain, advised to contact our office or come back to the hospital. I will be seen in the office in a month. 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
--- NOTE | 2021-01-08 22:37 | USCV_ITS ---
Twin To Age: 50 Gender: M : 1970 Exam Date: 01/08/2021 06:15 Ordering Phys: Emmanuel Turner MD ([email or web address]) Technologist: Exam Location: [facility] [place] Indication: EF BP: 157 / 80 HR: Rhythm: Sinus Technical Quality: Adequate MEASUREMENTS (Male / Female) Normal Values 2D ECHO LV Diastolic Diameter PLAX 3.7 cm 4.2 - 5.9 / 3.9 - 5.3 cm LV Systolic Diameter PLAX 2.3 cm IVS Diastolic Thickness 1.3 cm 0.6 - 1.0 / 0.6 - 0.9 cm IVS Systolic Thickness 1.5 cm LVPW Diastolic Thickness 1.1 cm 0.6 - 1.0 / 0.6 - 0.9 cm LVPW Systolic Thickness 1.3 cm LVOT Diameter 2.0 cm LV Ejection Fraction 2D Teich 70.5 % LV Ejection Fraction MOD 2C 61.8 % LV Ejection Fraction 2C AL 62.8 % LA Diameter 3.6 cm LA Width 3.2 cm LA Height 5.8 cm RA Width 4.2 cm RA Height 5.1 cm FINDINGS Left Ventricle Normal LV size and ejection fraction of around 60%. Mild concentric left ventricular hypertrophy. Mild hypokinesia of the inferobasal segment. Right Ventricle Normal right ventricular size and systolic function. Right Atrium Normal right atrial size. Left Atrium The left atrium is normal in size. Mitral Valve No gross abnormalities noted Aortic Valve No gross abnormalities noted Tricuspid Valve No gross abnormalities noted Pulmonic Valve No gross abnormalities noted Pericardium No pericardial effusion. Aorta Normal ascending aorta dimension. CONCLUSIONS Normal LV size and ejection fraction of around 60%. Mild concentric left ventricular hypertrophy. Mild hypokinesia of the inferobasal segment. Normal cardiac chamber sizes. No obvious valvular abnormalities There is no pericardial effusion. Compared to the study from 05/19/2020, there is improvement in the LV ejection fraction and wall motion abnormalities Dr Emmanuel Turner MD [facility] (Electronically Signed) Final Date: 08 January 2021 08:46 S
--- NOTE | 2021-01-09 12:40 | PC.SOCIAL ---
discharge follow up call made, spoke with patient. 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 patient denies any chest pain or sob. patient hasn't smoked since thursday. patient hasn't picked up [facility] but [facility] patient is aware of follow up appointment date and time with dr. thomas. patient declines wanting nurse to make follow up appointment with pcp.
== END 2021-01-08 13:15 | disposition home or self-care (01) | DRG 303 ==
LOC: ER 23:41 → MEDSURG 01-07 00:56
PROVIDERS: Admitting Provider Hospitalist; Emergency Provider Emergency Medicine; Visit Provider Student in an Organized Health Care Education/Training Program
DX: I25.110 Atherosclerotic heart disease of native coronary artery with unstable angina pectoris (principal); Z68.41 Body mass index [BMI] 40.0-44.9, adult; E66.9 Obesity, unspecified; F17.210 Nicotine dependence, cigarettes, uncomplicated; J44.9 Chronic obstructive pulmonary disease, unspecified; I10 Essential (primary) hypertension; E78.5 Hyperlipidemia, unspecified; I25.2 Old myocardial infarction; Z95.5 Presence of coronary angioplasty implant and graft; Z82.49 Family history of ischemic heart disease and other diseases of the circulatory system; G47.30 Sleep apnea, unspecified; Z79.02 Long term (current) use of antithrombotics/antiplatelets
CPT/HCPCS: 36415; 71045; 80053; 80061; 83036; 83735; 84145; 84443; 84484; 85025; 93005; 93308; 94640; 96372; 99285; G0378; J1650

== ENCOUNTER 2021-08-18 21:10 | Emergency (ER) | payer SELFPAY ==
[2021-08-18 21:18] VITALS: BP 153/87; PULSE 58; RESP 20; TEMP 36.6; O2SAT 94; BMI 38.0
--- NOTE | 2021-08-18 22:43 | ECG_ITS ---
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 Measurements Intervals [place] Rate: 51 P: 69 DC: 139 QRS: 92 QRSD: 107 T: 71 QT: 439 QTc: 408 Interpretive Statements SINUS BRADYCARDIA WITH OCCASIONAL VENTRICULAR PREMATURE COMPLEXES BORDERLINE RIGHT AXIS DEVIATION [QRS AXIS > 90] Compared to ECG 01/07/2021 03:47:12 No significant changes Electronically Signed On 08-19-2021 17:38:23 CDT by Samina Mercado M.D. [id number]
--- NOTE | 2021-08-18 22:43 | XRR_ITS ---
PROCEDURE INFORMATION: Exam: XR Chest Exam date and time: 08/19/2021 12:10 AM Age: 50 years old Clinical indication: Angina pectoris; Patient HX: Chest pain x 1 week. Upper ext tingling, nausea x 2 days TECHNIQUE: Imaging protocol: XR of the chest. Views: 1 view. COMPARISON: CR XR chest 1V portable [id number] 01/06/2021 9:17 PM FINDINGS: Lungs: No focal airspace disease. Pleural spaces: Unremarkable. No pleural effusion. No pneumothorax. Heart/Mediastinum: Cardiomediastinal silhouette is within normal limits. Bones/joints: Unremarkable. XR/XR chest 1V portable [id number] IMPRESSION: No acute cardiopulmonary abnormality.
--- NOTE | 2021-08-18 23:17 | W.ED.CHESTPA ---
Documented by User: BLAISE Martines 08/19/21 03:35 HPI - Chest Pain General: Chief Complaint: Chest Pain Stated Complaint: Chest pain\Tingeling\Legs Numb Time Seen by Provider: 08/18/21 23:07 History of Present Illness: Patient is a 50-year-old male comes to the ED with chest pain. History of NSTEMI, hypertension, dyslipidemia and stroke. He has had cardiac stent placed approximately a year and a half ago. He is currently on Plavix. He has been having chest pain for over a week now and it started while he was at rest. The past 2 days his chest pain is gotten worse. chest pain sometimes worsens with exertion, but not always. He rates his pain currently a 7 out of 10. Pain is located in the left side of chest and described as constant and achy. He also complains of some left and right shoulder pain as well. Endorses some mild nausea. He is a current tobacco smoker. He also takes a daily baby aspirin. Associated symptoms: Deny abdominal pain, dyspnea, fever(s), nausea, palpitations or vomiting Review of Systems Const: Denies: fever(s), chills or fatigue Eyes: Denies: change in vision or eye discomfort ENMT: Denies: throat pain, odynophagia, nasal discharge or nasal congestion Card: Reports: chest pain; Denies: palpitations, edema, swelling of feet/ankles, dyspnea on exertion or orthopnea Resp: Denies: dyspnea, productive cough or non-productive cough GI: Denies: abdominal pain, nausea, vomiting, diarrhea, constipation or hematochezia : Denies: flank pain, difficulty urinating, dysuria or hematuria Musc: Denies: neck pain, back pain or extremity swelling Skin/Breast: Denies: rash or new lesions Neuro: Denies: headache(s), numbness in extremities or weakness in extremities PFSH ED PFSH: Medical History Acute non-ST elevation myocardial infarction (NSTEMI) Atherosclerotic heart disease [place] coronary artery w/angina pectoris Benign essential HTN Bradycardia COPD (chronic obstructive pulmonary disease) Current smoker Dyslipidemia (high LDL; low HDL) Elevated blood pressure reading HTN (hypertension) Obesity (BMI 30.0-34.9) Sleep apnea Surgical History Amputation finger traumatic, with surgical reattachment of both index fingers History of ankle surgery Previous back surgery Coccyx Family History Father CAD (coronary artery disease) of massive PA in his 40s Diabetes Stroke Mother Cancer Lung cancer Lung disease Denies family history of Clotting disorder Dementia Chronic kidney disease (CKD) Suicide Anesthesia complication Bleeding disorder Social History Smoking and tobacco status: heavy tobacco smoker cigarettes Packs smoked per day: 1.5 [ Other cigarette details: Previously up to 4ppd, then 2, now down to 1] Alcohol intake: never Lives independently: Yes Household members: spouse Marital status: Current occupational status: employed Physical Exam Const: COMMON NORMALS: patient oriented x3 and alert GENERAL APPEARANCE: cooperative HENMT: COMMON NORMALS: normocephalic HEAD & SCALP: normocephalic MOUTH: Normal oral and palatal mucosa present THROAT: posterior oropharynx normal and uvula midline Neck/C-Spine: COMMON NORMALS: supple GENERAL: Yes normal visual inspection Resp: COMMON NORMALS: normal respiratory effort, No retractions, No use of accessory muscles and clear to auscultation bilaterally AUSCULTATION: clear to auscultation bilaterally Cardio: COMMON NORMALS: regular rate, regular rhythm, S1 normal heart sound present, S2 normal heart sound present, No gallops present (Cardio), No clicks present (Cardio), No murmurs present (Cardio) and Peripheral pulses 2+ throughout RATE: regular rate RHYTHM: regular rhythm HEART SOUNDS: S1 normal heart sound present and S2 normal heart sound present PERIPHERAL PULSES: Peripheral pulses 2+ throughout GI: COMMON NORMALS: Normal to inspection, nondistended, normoactive bowel sounds present, Soft to palpation, non-tender and no masses PALPATION: Yes Soft to palpation : COMMON NORMALS: Yes no CVA tenderness BLADDER/KIDNEY EXAM: Yes no CVA tenderness Back/Pelvis: COMMON NORMALS: no CVA tenderness Extremity: COMMON NORMALS: normal to inspection and no pedal edema Neuro: COMMON NORMALS: patient oriented x3 and moves all extremities SENSORIUM/ORIENTATION: Yes alert Skin: GENERAL SKIN EXAM: dry skin Course Reevaluation(s): Reevaluation #1: Patient's chest pain had resolved and he is feeling better. He is stable for discharge home. Time: 03:10 Vital Signs: Vital signs: Vital Signs Temperature 97.8 F 08/18/21 21:18 Pulse Rate 64 08/19/21 01:30 Respiratory Rate 16 08/19/21 02:31 Blood Pressure 142/84 08/19/21 01:30 Pulse Oximetry 97 08/19/21 02:31 MDM - Chest Pain Medical Decision Making Patient is a 50-year-old male who comes to the ED with chest pain. He has a history of past PA with cardiac stent placed, hypertension, dyslipidemia. Patient is currently on Plavix. Chest pain started at rest and has been going on for the past week. Chest pain got worse over the last 2 days. Vitals are stable. Exam of patient is benign. Troponins were negative. EKG showed no ST segment elevation or depression seen. Rest of his labs were unremarkable. Heart score of 3. Patient's chest pain resolved with morphine. I discussed patient case with Dr. Aburto and he agreed that he is stable for discharge home and he will have close follow-up with his PCP this coming week and I also placed an order with case management for patient to be set up with cardiology. He was given strict return to ED precautions. Patient said he was just about out of his Plavix so I sent him home with a prescription for some Plavix but I told him to talk to his PCP about blood thinner medication management at his next appointment. Patient understood and agreed with plan. Lab Data I reviewed the patient's lab results. : 08/18/21 23:20 08/18/21 23:20 Laboratory Results WBC 10.4 10^3/uL (4.0-10.0) H 08/18/21 23:20 RBC 4.40 10^6/uL (4.1-5.3) 08/18/21 23:20 Hgb 14.2 g/dL (11.7-16.6) 08/18/21 23:20 Hct 41.9 % (42.0-52.0) L 08/18/21 23:20 MCV 95.2 fl (80-94) H 08/18/21 23:20 MCH 32.3 pg (28.0-34.0) 08/18/21 23:20 MCHC 33.9 g/dL (30.0-36.0) 08/18/21 23:20 RDW 12.4 % (12.1-15.1) 08/18/21 23:20 Plt Count 211 10^3/cmm (130-400) 08/18/21 23:20 MPV 11.1 fL (7.4-10.4) H 08/18/21 23:20 Neut % (Auto) 48.9 % 08/18/21 23:20 Lymph % (Auto) 35.7 % 08/18/21 23:20 Pike % (Auto) 10.0 % 08/18/21 23:20 Eos % (Auto) 4.0 % 08/18/21 23:20 Baso % (Auto) 1.1 % 08/18/21 23:20 Neut # (Auto) 5.08 10^3/uL (1.8-7.7) 08/18/21 23:20 Lymph # (Auto) 3.7 10^3/uL (0.8-4.8) 08/18/21 23:20 Pike # (Auto) 1.0 10^3/uL (0.2-0.9) H 08/18/21 23:20 Eos # (Auto) 0.4 10^3/uL (0.0-0.8) 08/18/21 23:20 Baso # (Auto) 0.1 10^3/uL (0.0-0.1) 08/18/21 23:20 Nucleated RBC % (auto) 0 % 08/18/21 23:20 Nucleated RBCs # 0.0 /100WBC 08/18/21 23:20 Sodium 138 mmol/L (136-145) 08/18/21 23:20 Potassium 3.7 mmol/L (3.5-5.1) 08/18/21 23:20 Chloride 104 mmol/L (98-107) 08/18/21 23:20 Carbon Dioxide 25 mmol/L (22-29) 08/18/21 23:20 Anion Gap 12.7 (5-19) 08/18/21 23:20 BUN 16 mg/dL (6-20) 08/18/21 23:20 Creatinine 1.0 mg/dL (0.7-1.2) 08/18/21 23:20 GFR Calculation 78.8 mL/min (90-130) L 08/18/21 23:20 Glucose 103 mg/dL (65-115) 08/18/21 23:20 Calculated Osmolality 287 mOsm/kg (285-295) 08/18/21 23:20 Calcium 8.6 mg/dL (8.5-10.5) 08/18/21 23:20 Troponin T Baseline 9 ng/L (0-15) 08/18/21 23:20 Troponin T 120 Minute 9.41 ng/L (0-15) 08/19/21 01:35 Delta Troponin T 0.41 ABS# (0-10) 08/19/21 01:35 EKG Data EKG 1: EKG interpretation date: 08/18/21 Interpretation: Sinus bradycardia with occasional PVCs. [address] segment elevation or depression seen. EKG 2: EKG interpretation date: 08/19/21 Interpretation: 2-hour EKG?normal sinus rhythm, 60 bpm, no ST segment elevation or depression seen. No acute change compared to initial EKG today. Discharge Plan Discharge Patient Disposition: Home Clinical Impression: Atypical chest pain Condition: Stable Prescriptions: New clopidogrel 75 mg tablet 75 mg PO DAILY Qty: 30 0RF No Action lisinopril 10 mg tablet 5 mg PO DAILY@1100 Qty: 45 3RF atorvastatin 40 mg tablet See Rx Instructions .ROUTE .COMPLEX Qty: 30 6RF Dose Instruction: Take 1 tablet by mouth once daily Rx Instructions: Take 1 tablet by mouth once daily clopidogrel 75 mg tablet See Rx Instructions .ROUTE .COMPLEX Qty: 60 0RF Dose Instruction: TAKE ONE TABLET BY MOUTH DAILY AT 11:00 MUST MAKE FOLLOW-UP FOR FURTHER REFILLS Rx Instructions: TAKE ONE TABLET BY MOUTH DAILY AT 11:00 MUST MAKE FOLLOW-UP FOR FURTHER REFILLS Combivent Respimat 20-100 mcg/actuation mist 1 puff inhalation Q6H Qty: 4 0RF albuterol sulfate [Ventolin HFA] 90 mcg/actuation HFA aerosol inhaler 2 inh inhalation Q6H PRN (Reason: shortness of breath or wheezing) Qty: 8.5 0RF aspirin [Adult Aspirin Regimen] 81 mg tablet,delayed release (DR/EC) 81 mg PO DAILY@1100 0RF Discharge Orders: Discharge ED (Routine); Ordered 08/19/21 Ordered By: Andrew Abarca Discharge Diet: Regular Discharge Activity: Increase activity as tolerated Activity Restrictions/Additional Instructions: Follow-up with your PCP in the next 3 to 5 days for reevaluation. Also case management will contact you in the next several days to setup appointment with radiologist diagnostic for follow-up as well. Continue taking all home medications as previously prescribed. return to the ER or your medical provider if condition worsens. Please read and understand discharge instructions. Thank you for choosing [facility] for your healthcare needs today. Please realize this is an emergency room and that we are providing you with a medical screening exam and this may not be complete and all inclusive of all the testing and or work up that you may need to determine your ailment or severity of your illness. It is very important that you follow up as instructed or that you return to the Emergency Department should you have concerns or if your condition changes or worsens in any way. Coding Level of Care Code ED Test Man for Chg Fwd Exam Comprehensive Documented by User: Otoniel Aburto DO 08/19/21 04:09 HPI - Chest Pain General: Chief Complaint: Chest Pain Stated Complaint: Chest pain\Tingeling\Legs Numb Time Seen by Provider: 08/18/21 23:07 [facility] ED PFSH: Medical History Acute non-ST elevation myocardial infarction (NSTEMI) Atherosclerotic heart disease [place] coronary artery w/angina pectoris Benign essential HTN Bradycardia COPD (chronic obstructive pulmonary disease) Current smoker Dyslipidemia (high LDL; low HDL) Elevated blood pressure reading HTN (hypertension) Obesity (BMI 30.0-34.9) Sleep apnea Surgical History Amputation finger traumatic, with surgical reattachment of both index fingers History of ankle surgery Previous back surgery Coccyx Family History Father CAD (coronary artery disease) of massive PA in his 40s Diabetes Stroke Mother Cancer Lung cancer Lung disease Denies family history of Clotting disorder Dementia Chronic kidney disease (CKD) Suicide Anesthesia complication Bleeding disorder Social History Smoking and tobacco status: heavy tobacco smoker cigarettes Packs smoked per day: 1.5 [ Other cigarette details: Previously up to 4ppd, then 2, now down to 1] Alcohol intake: never Lives independently: Yes Household members: spouse Marital status: Current occupational status: employed Course Vital Signs: Vital signs: Vital Signs Temperature 97.8 F 08/18/21 21:18 Pulse Rate 64 08/19/21 01:30 Respiratory Rate 16 08/19/21 02:31 Blood Pressure 142/84 08/19/21 01:30 Pulse Oximetry 97 08/19/21 02:31 MDM - Chest Pain Medical Decision Making Patient is a 50-year-old male who comes to the ED with chest pain. He has a history of past PA with cardiac stent placed, hypertension, dyslipidemia. Patient is currently on Plavix. Chest pain started at rest and has been going on for the past week. Chest pain got worse over the last 2 days. Vitals are stable. Exam of patient is benign. Troponins were negative. EKG showed no ST segment elevation or depression seen. Rest of his labs were unremarkable. Heart score of 3. Patient's chest pain resolved with morphine. I discussed patient case with Dr. Aburto and he agreed that he is stable for discharge home and he will have close follow-up with his PCP this coming week and I also placed an order with case management for patient to be set up with cardiology. He was given strict return to ED precautions. Patient said he was just about out of his Plavix so I sent him home with a prescription for some Plavix but I told him to talk to his PCP about blood thinner medication management at his next appointment. Patient understood and agreed with plan. This patient was originally seen by Mr. Rima PA-C.? I agree with his history, evaluation, and treatment. Lab Data : 08/18/21 23:20 08/18/21 23:20 Laboratory Results WBC 10.4 10^3/uL (4.0-10.0) H 08/18/21 23:20 RBC 4.40 10^6/uL (4.1-5.3) 08/18/21 23:20 Hgb 14.2 g/dL (11.7-16.6) 08/18/21 23:20 Hct 41.9 % (42.0-52.0) L 08/18/21 23:20 MCV 95.2 fl (80-94) H 08/18/21 23:20 MCH 32.3 pg (28.0-34.0) 08/18/21 23:20 MCHC 33.9 g/dL (30.0-36.0) 08/18/21 23:20 RDW 12.4 % (12.1-15.1) 08/18/21 23:20 Plt Count 211 10^3/cmm (130-400) 08/18/21 23:20 MPV 11.1 fL (7.4-10.4) H 08/18/21 23:20 Neut % (Auto) 48.9 % 08/18/21 23:20 Lymph % (Auto) 35.7 % 08/18/21 23:20 Pike % (Auto) 10.0 % 08/18/21 23:20 Eos % (Auto) 4.0 % 08/18/21 23:20 Baso % (Auto) 1.1 % 08/18/21 23:20 Neut # (Auto) 5.08 10^3/uL (1.8-7.7) 08/18/21 23:20 Lymph # (Auto) 3.7 10^3/uL (0.8-4.8) 08/18/21 23:20 Pike # (Auto) 1.0 10^3/uL (0.2-0.9) H 08/18/21 23:20 Eos # (Auto) 0.4 10^3/uL (0.0-0.8) 08/18/21 23:20 Baso # (Auto) 0.1 10^3/uL (0.0-0.1) 08/18/21 23:20 Nucleated RBC % (auto) 0 % 08/18/21 23:20 Nucleated RBCs # 0.0 /100WBC 08/18/21 23:20 Sodium 138 mmol/L (136-145) 08/18/21 23:20 Potassium 3.7 mmol/L (3.5-5.1) 08/18/21 23:20 Chloride 104 mmol/L (98-107) 08/18/21 23:20 Carbon Dioxide 25 mmol/L (22-29) 08/18/21 23:20 Anion Gap 12.7 (5-19) 08/18/21 23:20 BUN 16 mg/dL (6-20) 08/18/21 23:20 Creatinine 1.0 mg/dL (0.7-1.2) 08/18/21 23:20 GFR Calculation 78.8 mL/min (90-130) L 08/18/21 23:20 Glucose 103 mg/dL (65-115) 08/18/21 23:20 Calculated Osmolality 287 mOsm/kg (285-295) 08/18/21 23:20 Calcium 8.6 mg/dL (8.5-10.5) 08/18/21 23:20 Troponin T Baseline 9 ng/L (0-15) 08/18/21 23:20 Troponin T 120 Minute 9.41 ng/L (0-15) 08/19/21 01:35 Delta Troponin T 0.41 ABS# (0-10) 08/19/21 01:35 Discharge Plan Discharge Patient Disposition: Home Clinical Impression: Atypical chest pain Condition: Stable Prescriptions: New clopidogrel 75 mg tablet 75 mg PO DAILY Qty: 30 0RF No Action lisinopril 10 mg tablet 5 mg PO DAILY@1100 Qty: 45 3RF atorvastatin 40 mg tablet See Rx Instructions .ROUTE .COMPLEX Qty: 30 6RF Dose Instruction: Take 1 tablet by mouth once daily Rx Instructions: Take 1 tablet by mouth once daily clopidogrel 75 mg tablet See Rx Instructions .ROUTE .COMPLEX Qty: 60 0RF Dose Instruction: TAKE ONE TABLET BY MOUTH DAILY AT 11:00 MUST MAKE FOLLOW-UP FOR FURTHER REFILLS Rx Instructions: TAKE ONE TABLET BY MOUTH DAILY AT 11:00 MUST MAKE FOLLOW-UP FOR FURTHER REFILLS Combivent Respimat 20-100 mcg/actuation mist 1 puff inhalation Q6H Qty: 4 0RF albuterol sulfate [Ventolin HFA] 90 mcg/actuation HFA aerosol inhaler 2 inh inhalation Q6H PRN (Reason: shortness of breath or wheezing) Qty: 8.5 0RF aspirin [Adult Aspirin Regimen] 81 mg tablet,delayed release (DR/EC) 81 mg PO DAILY@1100 0RF Discharge Orders: Discharge ED (Routine); Ordered 08/19/21 Ordered By: Andrew Abarca Discharge Diet: Regular Discharge Activity: Increase activity as tolerated Activity Restrictions/Additional Instructions: Follow-up with your PCP in the next 3 to 5 days for reevaluation. Also case management will contact you in the next several days to setup appointment with radiologist diagnostic for follow-up as well. Continue taking all home medications as previously prescribed. return to the ER or your medical provider if condition worsens. Please read and understand discharge instructions. Thank you for choosing [facility] for your healthcare needs today. Please realize this is an emergency room and that we are providing you with a medical screening exam and this may not be complete and all inclusive of all the testing and or work up that you may need to determine your ailment or severity of your illness. It is very important that you follow up as instructed or that you return to the Emergency Department should you have concerns or if your condition changes or worsens in any way. Coding Level of Care Code ED Test Man for Rafaela Dow Exam Comprehensive
[2021-08-18 23:24] VITALS: BP 161/89; PULSE 72; RESP 22; O2SAT 97
[2021-08-18 23:28] VITALS: RESP 22; O2SAT 96
[2021-08-18] MEDS: morphine 4 mg/mL SDV 1 mL IVP (23:28)
[2021-08-18] MEDS: ondansetron 2 mg/ML SDV 2 mL 4 MG IVP (23:28)
[2021-08-18 23:30] VITALS: BP 127/69; PULSE 65; RESP 18; O2SAT 96
[2021-08-18 23:36] LABS: Basophils # 0.1 10^3/uL (0.0-0.1); Basophils % 1.1 %; Eosinophils # 0.4 10^3/uL (0.0-0.8); Hematocrit 41.9 % (42.0-52.0); Hemoglobin 14.2 g/dL (11.7-16.6); Lymphocytes # 3.7 10^3/uL (0.8-4.8); Lymphocytes % 35.7 %; Mean Corpuscular HGB Conc 33.9 g/dL (30.0-36.0); Mean Corpuscular Hemoglobin 32.3 pg (28.0-34.0); Mean Corpuscular Volume 95.2 fl (80-94); Mean Platelet Volume 11.1 fL (7.4-10.4); Neutrophils # 5.08 10^3/uL (1.8-7.7); Neutrophils % 48.9 %; Nucleated Red Blood Cells % 0 %; Platelet Count 211 10^3/cmm (130-400); Red Cell Distribution Width 12.4 % (12.1-15.1); White Blood Count 10.4 10^3/uL (4.0-10.0)
[2021-08-19] VITALS: BP 136/86; PULSE 88; RESP 18; O2SAT 95
[2021-08-19] LABS: Anion Gap 12.7 (5-19); Blood Urea Nitrogen 16 mg/dL (6-20); Calcium 8.6 mg/dL (8.5-10.5); Carbon Dioxide 25 mmol/L (22-29); Chloride 104 mmol/L (98-107); Glucose 103 mg/dL (65-115); Osmolality Calculated 287 mOsm/kg (285-295); Potassium 3.7 mmol/L (3.5-5.1); Sodium 138 mmol/L (136-145)
[2021-08-19 00:02] LABS: Troponin(5th) Baseline 9 ng/L (0-15)
[2021-08-19 00:14] LABS: Glomerular Filtration Rate 78.8 mL/min (90-130)
--- NOTE | 2021-08-19 00:43 | ECG_ITS ---
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 Measurements Intervals [place] Rate: 60 P: 70 NH: 150 QRS: 94 QRSD: 101 T: 64 QT: 440 QTc: 440 Interpretive Statements SINUS RHYTHM BORDERLINE RIGHT AXIS DEVIATION [QRS AXIS > 90] Compared to ECG 08/18/2021 21:22:26 Sinus bradycardia no longer present Ventricular premature complex(es) no longer present Electronically Signed On 08-19-2021 17:42:35 CDT by Samina Mercado M.D. [email or web address]
[2021-08-19 01:30] VITALS: BP 142/84; PULSE 64; RESP 19; O2SAT 95
[2021-08-19 02:12] LABS: Troponin 5 2HR 9.41 ng/L (0-15)
[2021-08-19 02:21] LABS: Troponin 5 2HR Delta 0.41 ABS# (0-10)
[2021-08-19 02:31] VITALS: RESP 16; O2SAT 97
[2021-08-19] MEDS: morphine 4 mg/mL SDV 1 mL IVP (02:31)
[2021-08-19 04:00] VITALS: BP 114/68; PULSE 80; RESP 17; O2SAT 94
[2021-08-19 04:22] VITALS: BP 114/68; PULSE 80; RESP 17; O2SAT 94
--- NOTE | 2021-08-21 17:36 | DCPLANNER ---
Addendum entered by Anusha Omalley 09/23/21 07:21: Patient had a follow up appointment scheduled with heart care - patient did not attend appointment. Addendum entered by Anusha Omalley 08/30/21 16:10: Patient has a follow up appointment scheduled for Thursday, September 13, 2021 at 10:45 with [facility] APPRENTICE, Rosa Fernando. Clinic will call patient with appointment information. Original Note: manager salt had message to schedule a follow up appointment for patient with [facility]. manager salt sent patients information to the front office staff at [facility]. Patients information will be printed and reviewed. Clinic will call patient with appointment information.
== END 2021-08-19 04:26 | disposition home or self-care (01) ==
PROVIDERS: Emergency Medicine; Emergency Provider Physician Assistant
DX: R07.89 Other chest pain (principal); I25.2 Old myocardial infarction; I10 Essential (primary) hypertension; F17.210 Nicotine dependence, cigarettes, uncomplicated; Z79.02 Long term (current) use of antithrombotics/antiplatelets; Z95.5 Presence of coronary angioplasty implant and graft; Z79.82 Long term (current) use of aspirin; Z82.49 Family history of ischemic heart disease and other diseases of the circulatory system
CPT/HCPCS: 71045; 80048; 84484; 85025; 93005; 96374; 96375; 96376; 99285; J2270; J2405

== ENCOUNTER 2022-12-05 11:34 | Emergency (ER) | payer SELFPAY ==
[2022-12-05] VITALS (7 sets, daily range): BP systolic 137–187; BP diastolic 80–141; PULSE 61–96; RESP 12–25; TEMP 37; O2SAT 97–99
--- NOTE | 2022-12-05 | CT_ITS ---
WS: [id number] CT HEAD NONCONTRAST HISTORY: TRAUMA TECHNIQUE: Contiguous axial imaging performed through the brain in 2.5 mm imaging. Bone and soft tiss ue windows. Sagittal and coronal reformats reviewed. All CT scans at [facility] use at least one of these dose optimization techniques: automated exposure control; mA and/or kV adjustment per pa tient size (includes targeted exams where dose is matched to clinical indication); or iterative recon struction. DLP: 1676.30 mGy.cm COMPARISON: 05/18/2020 No acute intracranial hemorrhage, midline shift or mass effect. No atrophy or prior infarcts or herniation. Ventricles: Normal size with no hydrocephalus. Paranasal sinuses: Mild mucoperiosteal thickening RIGHT maxillary sinus. No fractures are identified by head CT imaging. No overlying facial bone edema or hematoma. Mastoid air cells: Well pneumatized. Calvarium and scalp: Skull is intact with no soft tissue edema or swelling. IMPRESSION: Negative head CT.
--- NOTE | 2022-12-05 | CT_ITS ---
WS: [id number] CT CHEST, ABDOMEN AND PELVIS WITH CONTRAST HISTORY: TRAUMA TECHNIQUE: Contiguous 5 mm axial imaging performed through the chest, abdomen and pelvis with IV cont rast, oral contrast has not been provided. Coronal and sagittal reformats chest. Coronal and sagittal reformats through the abdomen and pelvis. All CT scans at [facility] use at least one of the se dose optimization techniques: automated exposure control; mA and/or kV adjustment per patient size (includes targeted exams where dose is matched to clinical indication); or iterative reconstruction. CONTRAST: Omnipaque 350; 100 mL IV. DLP: 1685.39 mGy.cm COMPARISON: 05/18/[address]: Normal lungs. No pneumothorax or pulmonary contusion. No pericardial or pleural effusion. N ormal thoracic aorta. Normal size pulmonary artery. Normal size heart and soft tissues. No rib or spi ne fractures. Abdomen CT: Normal liver and spleen. Normal gallbladder. Negative pancreas and adrenal glands. Mild h yperplasia of the LEFT adrenal gland. Similar to the prior study from 2020. No renal injury or lacera tion. Mild atherosclerosis aorta. No mesenteric injury. No edema or hematoma. No free fluid or free a ir. No small bowel or colon obstruction. Mild diverticular disease in the distal colon. Pelvic CT: No free fluid or adenopathy. Negative urinary bladder. No spine fracture identified. IMPRESSION: Negative CT of chest, abdomen and pelvis. No evidence for injury from the recent trauma.
--- NOTE | 2022-12-05 | CT_ITS ---
WS: [id number] CT CERVICAL SPINE HISTORY: TRAUMA TECHNIQUE: Contiguous 2.0 mm axial imaging performed through the entire cervical spine. Sagittal and coronal reformats also performed. All CT scans at [facility] use at least one of these dose o ptimization techniques: automated exposure control; mA and/or kV adjustment per patient size (include s targeted exams where dose is matched to clinical indication); or iterative reconstruction. DLP: 1676.30 mGy.cm COMPARISON: 05/18/2020 Normal cervical alignment. Craniocervical junction, atlantodental interval and C1-C2 alignment is nor mal. Small osseous densities adjacent to the posterior C1 ring were present in 2020. C2-C3: Normal. C3-C4: Normal. C4-C5: Normal. C5-C6: Osteophytic ridging with mild central and bilateral foraminal stenosis. C6-C7: Normal. C7-T1: Normal. Soft tissues are normal. Lung apices are clear. IMPRESSION: No cervical spine fracture.
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
--- NOTE | 2022-12-05 11:45 | PC.NURSE ---
PT REFUSED C-COLLAR
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
[2022-12-05] MEDS: iohexol 350 mg/mL 500 mL Btl (per mL) IV (11:49)
[2022-12-05 11:54] LABS: Basophils # 0.1 10^3/uL (0.0-0.1); Eosinophils # 0.2 10^3/uL (0.0-0.8); Eosinophils % 1.7 %; Hematocrit 41.4 % (37-53); Lymphocytes # 2.6 10^3/uL (0.8-4.8); Lymphocytes % 24.8 %; Mean Corpuscular HGB Conc 34.1 g/dL (30-55); Mean Corpuscular Hemoglobin 32.7 pg (27-33); Mean Corpuscular Volume 96.1 fl (82-101); Mean Platelet Volume 11.3 fL (7.4-10.4); Monocytes # 0.8 10^3/uL (0.2-0.9); Monocytes % 7.8 %; Neutrophils # 6.66 10^3/uL (1.8-7.7); Neutrophils % 64.2 %; Nucleated Red Blood Cells % 0 %; Platelet Count 209 10^3/cmm (157-399); Red Blood Count 4.31 10^6/uL (3.85-5.65); Red Cell Distribution Width 12.4 % (12.1-15.1); White Blood Count 10.37 10^3/uL (3.29-11.43)
[2022-12-05 12:19] LABS: INR 0.91 (0.8-1.2)
[2022-12-05 12:23] LABS: Slide Review Slide Review Perform
[2022-12-05 12:27] LABS: Alanine Aminotransferase 32 U/L (0-41); Albumin Level 4.1 g/dL (3.5-5.2); Alkaline Phosphatase 99 U/L (40-130); Anion Gap 13.8 (5-19); Aspartate Amino Transferase 20 U/L (0-40); Blood Urea Nitrogen 10 mg/dL (6-20); Calcium 9.2 mg/dL (8.5-10.5); Carbon Dioxide 24 mmol/L (22-29); Chloride 106 mmol/L (98-107); Glomerular Filtration Rate 78.2 mL/min (90-130); Glucose 125 mg/dL (65-115); Osmolality Calculated 291 mOsm/kg (285-295); Potassium 3.8 mmol/L (3.5-5.1); Sodium 140 mmol/L (136-145); Total Bilirubin 0.5 mg/dL (0.15-1.2); Total Protein 6.1 g/dL (6.6-8.7)
--- NOTE | 2022-12-05 12:43 | PC.NURSE ---
ATTEMPTED RING REMOVAL, UNSUCCESSFUL. PHYSICIAN NOTIFIED
--- NOTE | 2022-12-05 12:49 | PC.PHAR ---
PT STATES HE TAKES CARE OF HIS OWN MEDICATIONS-PT STATES HE IS SUPPOSE TO TAKES A 81MG OF ASPIRIN DAILY PT STATES HE ONLY TAKES THREE TIMES A WEEK-PT STATES HE NO LONGER USES THE COMBIVENT RESPIMAT INHALER RX WRITTEN 03/10/2020-PT STATES HE IS ONLY TAKING THE MEDICATIONS ENTERED
[2022-12-05 13:18] LABS: Add Urine Microscopic? NO; Charge for UA Resulting for Rev
[2022-12-05] MEDS: ketorolac 30 mg/mL INJ IVP (13:31)
--- NOTE | 2022-12-05 13:34 | XR_ITS ---
WS: [email or web address] Exam: XR ankle RT min 3V* [id number] Date/Time of Exam: 12/05/2022 1:34 PM Reason For Exam: pain Exam: XR ankle RT min 3V* [id number] Date/Time of Exam: 12/05/2022 1:34 PM Reason For Exam: pain No fracture or dislocation. Mild degenerative change of the ankle mortise. Soft tissues are unremarka ble. IMPRESSION: 1. No fracture or dislocation. Mild degenerative changes.
--- NOTE | 2022-12-05 13:34 | XR_ITS ---
WS: [id number] Exam: XR hand LT min 3V* [id number] Date/Time of Exam: 12/05/2022 1:34 PM Reason For Exam: post reduciton 4th finger Previously noted PIP joint dislocation of the fourth finger has been reduced. Articular relationships are restored. Again noted is an indeterminate fracture along the dorsal margin at the base of the di stal phalanx of the ring finger. IMPRESSION: 1. Satisfactory reduction of fourth PIP joint dislocation.
[2022-12-05 13:36] LABS: Bilirubin Urine Neg (Negative); Blood Urine Neg (Negative); Glucose Urine UA 1+ (Normal); Ketones Urine Negative (Negative); Leukocyte Esterase Urine Negative (Negative); Nitrate Urine Negative (Negative); Protein Urine Neg (Negative); Specific Gravity, Urine 1.005 (1.005-1.030); Urine Appearance Clear (CLEAR); Urine Color Yellow (Yellow); Urobilinogen Urine Norm (Negative); pH Urine 7 (5-7)
[2022-12-05] MEDS: orphenadrine 30 mg/mL Inj 2 mL 60 MG IVP (13:52)
--- NOTE | 2022-12-05 15:14 | PC.NURSE ---
LEFT 3RD AND 4TH DIGIT JUAN JOSÉ TAPED PER VERBAL ORDER ED PHYSICIAN
--- NOTE | 2022-12-08 07:17 | DCPLANNER ---
Addendum entered by Anusha Omalley 12/18/22 15:04: manager background received the following message from the ortho clinic regarding follow up appointment: this is still pending - waiting to hear back from patient accounts regarding patients balance and if we would be ok to schedule. Dr Abarca stated patient could also be referred out to [facility] if there were any issues. Original Note: manager background had message to schedule a follow up appointment for patient with ortho. manager background sent patients information to the front office staff at ortho. Patients information will be printed and reviewed. Clinic will call patient with appointment information.
== END 2022-12-05 15:17 | disposition home or self-care (01) ==
PROVIDERS: Emergency Provider Family Medicine
DX: S63.285A Dislocation of proximal interphalangeal joint of left ring finger, initial encounter (principal); M54.50 Low back pain, unspecified; V29.408A Other motorcycle driver injured in collision with unspecified motor vehicles in traffic accident, initial encounter; Z79.82 Long term (current) use of aspirin; Z79.02 Long term (current) use of antithrombotics/antiplatelets; F17.210 Nicotine dependence, cigarettes, uncomplicated; I25.2 Old myocardial infarction; I25.10 Atherosclerotic heart disease of native coronary artery without angina pectoris; J44.9 Chronic obstructive pulmonary disease, unspecified; E78.5 Hyperlipidemia, unspecified
CPT/HCPCS: 26770; 70450; 71260; 72125; 73080; 73130; 73562; 73610; 73630; 74177; 80053; 81003; 85025; 85610; 85730; 96374; 96375; 99285; J1885; J2360; Q9967

== ENCOUNTER 2022-12-12 19:45 | Emergency (ER) | payer SELFPAY ==
[2022-12-12 20:04] VITALS: BP 150/74; PULSE 65; RESP 16; TEMP 36.6; O2SAT 98; BMI 32.9
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
== END 2022-12-12 22:23 | disposition home or self-care (01) ==
PROVIDERS: Emergency Provider Nurse Practitioner Family
DX: S40.022A Contusion of left upper arm, initial encounter (principal); Z79.82 Long term (current) use of aspirin; Z79.02 Long term (current) use of antithrombotics/antiplatelets; S50.812A Abrasion of left forearm, initial encounter; F17.210 Nicotine dependence, cigarettes, uncomplicated; I25.2 Old myocardial infarction; I25.10 Atherosclerotic heart disease of native coronary artery without angina pectoris; I10 Essential (primary) hypertension; J44.9 Chronic obstructive pulmonary disease, unspecified; E78.5 Hyperlipidemia, unspecified; V29.99XA Rider (driver) (passenger) of other motorcycle injured in unspecified traffic accident, initial encounter
CPT/HCPCS: 99281